=== PATIENT | male | born 1960 | race Caucasian/White ===

== ENCOUNTER 2019-01-23 10:14 | Emergency (ER) | payer MEDICARE, MEDICAID ==
[~2019-01-23] VITALS: Ht 182.9 cm; Wt 111.6 kg
[2019-01-23 10:46] LABS: Urine WBC None Seen /hpf (0 - 3)
[2019-01-23 10:55] LABS: Basophils # (auto) 0 uL; Basophils % (auto) 0.5 % (0.0-2.0); Eosinophils # (auto) 0.1 uL; Hematocrit 44.8 % (41.0-53.0); Hemoglobin 15.2 g/dL (13.5-17.5); Lymphocytes # (auto) 1.1 uL; Lymphocytes % (auto) 16.9 % (10.0-50.0); Mean Corpuscular Hemoglobin 31.1 pg (28.0-32.0); Mean Corpuscular Hgb Conc. 33.9 g/dL (32.0-36.0); Mean Corpuscular Volume 91.7 fL (80.0-100.0); Monocytes # (auto) 0.5 uL; Monocytes % (auto) 7.6 % (0.0-12.0); Neutrophils # (auto) 4.9 uL; Platelet Count (auto) 218 10^3/uL (140-450); Red Blood Cells 4.89 10^6/uL (4.5-5.90); Red Cell Distribution Width 14.1 % (11.8-14.3); White Blood Cell 6.7 10^3/uL (4.4-10.8)
[2019-01-23 10:58] LABS: Urine Amorphous Crystal FEW /hpf (None Seen); Urine Bacteria NONE SEEN /hpf (None Seen); Urine Blood Negative /uL (Negative); Urine Specific Gravity 1.016 (1.001-1.035)
[2019-01-23 11:12] LABS: Salicylate < 1.7 mg/dL (2.8-20.0)
[2019-01-23 11:13] LABS: Alcohol, Urine < 3.0 mg/dL (0-5); Amphetamine Screen, Urine NEGATIVE (NEGATIVE); Barbiturate Scree,Urine NEGATIVE (NEGATIVE); Benzodiazephine Screen, Urine NEGATIVE (NEGATIVE); Cannabinoid Screen, Urine POSITIVE (NEGATIVE); Cocaine Screen, Urine NEGATIVE (NEGATIVE); Opiate Scree,Urine NEGATIVE (NEGATIVE); Phencyclidine Screen, Urine NEGATIVE (NEGATIVE)
[2019-01-23 11:13] LABS: Albumin 3.8 g/dL (3.4-5.0); BUN/Creatinine Ratio 8.9; Calcium 8.8 mg/dL (8.5-10.1); Potassium 3.3 mmol/L (3.5-5.1)
[2019-01-23 11:16] LABS: Bilirubin, Total 0.7 mg/dL (0.2-1.0); Total Protein 6.8 g/dL (6.4-8.2)
[2019-01-23 11:26] LABS: Acetaminophen < 2.0 ug/mL (10-30)
[2019-01-23 13:00] VITALS: BP 162/78
== END 2019-01-23 13:11 | disposition home or self-care (01) ==
LOC: ER 10:14
DX: F32.9 Major depressive disorder, single episode, unspecified (principal); F41.9 Anxiety disorder, unspecified; I10 Essential (primary) hypertension; Z87.891 Personal history of nicotine dependence
CPT/HCPCS: 36415; 80053; 80307; 80329; 81001; 85025

== ENCOUNTER 2019-07-11 07:10 | Emergency (ER) | payer MEDICARE, MEDICAID ==
[~2019-07-11] VITALS: Ht 182.9 cm; Wt 108.9 kg
[2019-07-11 07:54] VITALS: BP 157/86
== END 2019-07-11 08:17 | disposition home or self-care (01) ==
LOC: ER 07:10
DX: H66.42 Suppurative otitis media, unspecified, left ear (principal); I10 Essential (primary) hypertension; Z87.891 Personal history of nicotine dependence

== ENCOUNTER 2019-09-29 11:05 | Inpatient (IN) | payer MEDICARE, MEDICAID ==
[~2019-09-29] VITALS: Ht 182.9 cm; Wt 116.8 kg
[2019-09-29] MEDS ORDERED: SODIUM CHLORIDE 0.9% 500 ML IVB ONE (11:11)
[2019-09-29 11:39] LABS: Basophils # (auto) 0 10 ^3/uL (0-0.2); Basophils % (auto) 0.5 % (0.0-2.0); Eosinophils # (auto) 0.1 10 ^3/uL (0-0.8); Hematocrit 44.3 % (41.0-53.0); Hemoglobin 14.8 g/dL (13.5-17.5); Lymphocytes # (auto) 0.7 10 ^3/uL (0.4-5.4); Lymphocytes % (auto) 7.5 % (10.0-50.0); Mean Corpuscular Hemoglobin 31.3 pg (28.0-32.0); Mean Corpuscular Hgb Conc. 33.3 g/dL (32.0-36.0); Mean Corpuscular Volume 93.9 fL (80.0-100.0); Monocytes # (auto) 0.6 10 ^3/uL (0-1.3); Monocytes % (auto) 6.6 % (0.0-12.0); Neutrophils # (auto) 7.4 10 ^3/uL (1.6-8.6); Neutrophils % (auto) 84.4 % (37.0-80.0); Platelet Count (auto) 173 10^3/uL (140-450); Red Blood Cells 4.72 10^6/uL (4.5-5.90); Red Cell Distribution Width 14.7 % (11.8-14.3); White Blood Cell 8.7 10^3/uL (4.4-10.8)
[2019-09-29 11:46] LABS: INR 1.01 (0.9-1.15); Partial Thromboplastin Time 26.6 sec (23.64-32.05)
[2019-09-29 11:49] LABS: Albumin 3.8 g/dL (3.4-5.0); Calcium 8.4 mg/dL (8.5-10.1); Potassium 3.7 mmol/L (3.5-5.1)
[2019-09-29 11:52] LABS: BUN/Creatinine Ratio 25.3; Bilirubin, Total 0.4 mg/dL (0.2-1.0); Total Protein 6.9 g/dL (6.4-8.2)
[2019-09-29] MEDS ORDERED: NITROGLYCERIN 0.4 MG SL TAB SL PRN (12:30)
[2019-09-29] MEDS ORDERED: cefTRIAXone 1GM/50ML D5W 50 ML IV ONE (12:30)
[2019-09-29] MEDS ORDERED: MORPHINE SULF INJ 2 MG/ML SYRINGE 1ML IV PRN ×2 (12:30→22:00)
[2019-09-29] MEDS ORDERED: metroNIDAZOLE 500MG/100ML 100 ML IV ONE (12:30)
[2019-09-29] MEDS ORDERED: LABETALOL HCL 5 MG/ML 4ML SYRINGE IV PRN (12:30)
[2019-09-29] MEDS: metroNIDAZOLE 500MG/100ML 100 ML IV SCH ×2 (12:53→22:25)
[2019-09-29] MEDS: SODIUM CHLORIDE 0.9% 1,000 ML IV SCH ×2 (12:57→23:14)
[2019-09-29] MEDS ORDERED: LACTULOSE 20Gm/30ML SOLN PO PRN (13:30)
[2019-09-29 16:24] VITALS: BP 159/85
[2019-09-29 18:17] LABS: Hematocrit 42.7 % (41.0-53.0); Hemoglobin 14.2 g/dL (13.5-17.5)
[2019-09-29 18:42] VITALS: BP 159/85
[2019-09-29] MEDS ORDERED: HYDROcodone-ACET 5/325MG TAB PO PRN (22:00)
[2019-09-29] MEDS ORDERED: ACETAMINOPHEN 325 MG TAB PO PRN (22:00)
[2019-09-29] MEDS: ATORVASTATIN 20 MG TAB PO SCH (22:25)
[2019-09-29] MEDS: PANTOPRAZOLE 40 MG TAB PO SCH (22:25)
[2019-09-29] MEDS: METOPROLOL TARTRATE 25 MG TAB PO SCH (22:26)
[2019-09-29 22:34] VITALS: BP 145/73
[2019-09-29 23:43] LABS: Alcohol, Urine < 3.0 mg/dL (0-5); Amphetamine Screen, Urine NEGATIVE (NEGATIVE); Barbiturate Scree,Urine NEGATIVE (NEGATIVE); Benzodiazephine Screen, Urine NEGATIVE (NEGATIVE); Cocaine Screen, Urine NEGATIVE (NEGATIVE); Opiate Scree,Urine NEGATIVE (NEGATIVE); Phencyclidine Screen, Urine NEGATIVE (NEGATIVE)
[2019-09-30 00:07] LABS: Cannabinoid Screen, Urine POSITIVE (NEGATIVE)
[2019-09-30 02:27] LABS: Hematocrit 41.3 % (41.0-53.0); Hemoglobin 13.8 g/dL (13.5-17.5)
[2019-09-30 05:14] VITALS: BP 137/64
[2019-09-30] MEDS: metroNIDAZOLE 500MG/100ML 100 ML IV SCH ×3 (05:48→21:54)
[2019-09-30 07:30] LABS: Basophils # (auto) 0 10 ^3/uL (0-0.2); Basophils % (auto) 0.4 % (0.0-2.0); Eosinophils # (auto) 0.1 10 ^3/uL (0-0.8); Hematocrit 40.9 % (41.0-53.0); Hemoglobin 13.8 g/dL (13.5-17.5); Lymphocytes % (auto) 14.7 % (10.0-50.0); Mean Corpuscular Hemoglobin 31.7 pg (28.0-32.0); Mean Corpuscular Hgb Conc. 33.7 g/dL (32.0-36.0); Mean Corpuscular Volume 94.3 fL (80.0-100.0); Monocytes # (auto) 0.7 10 ^3/uL (0-1.3); Monocytes % (auto) 10.3 % (0.0-12.0); Neutrophils # (auto) 5.1 10 ^3/uL (1.6-8.6); Neutrophils % (auto) 72.6 % (37.0-80.0); Platelet Count (auto) 156 10^3/uL (140-450); Red Blood Cells 4.34 10^6/uL (4.5-5.90); Red Cell Distribution Width 14.6 % (11.8-14.3); White Blood Cell 7.1 10^3/uL (4.4-10.8)
[2019-09-30 09:00] VITALS: BP 150/85
[2019-09-30] MEDS: cefTRIAXone 1GM/50ML D5W 50 ML IV SCH (09:32)
[2019-09-30] MEDS: PANTOPRAZOLE 40 MG TAB PO SCH ×2 (09:32→21:54)
[2019-09-30] MEDS: METOPROLOL TARTRATE 25 MG TAB PO SCH (09:34)
[2019-09-30] MEDS: SODIUM CHLORIDE 0.9% 1,000 ML IV SCH (11:35)
[2019-09-30] MEDS ORDERED: amLODIPine BESYLATE 5 MG TAB PO ONE (12:45)
[2019-09-30 13:00] VITALS: BP 132/76
[2019-09-30] MEDS ORDERED: hydrALAZINE HCL 20 MG/ML VL IV PRN (13:15)
[2019-09-30] MEDS ORDERED: LORazepam 2MG/ML-1ML VIAL IV PRN (14:30)
[2019-09-30 16:45] VITALS: BP 149/71
[2019-09-30] MEDS ORDERED: LOSARTAN POTASSIUM 25 MG TAB PO ONE (17:15)
[2019-09-30 21:37] VITALS: BP 153/80
[2019-09-30] MEDS: ATORVASTATIN 20 MG TAB PO SCH (21:54)
[2019-09-30] MEDS: TIMOLOL MALEATE 0.25 % OPTH SOL 5ML EACHEYE SCH (22:00)
[2019-10-01 05:25] LABS: Basophils # (auto) 0 10 ^3/uL (0-0.2); Basophils % (auto) 0.4 % (0.0-2.0); Eosinophils # (auto) 0.1 10 ^3/uL (0-0.8); Eosinophils % (auto) 2.2 % (0.0-7.0); Hematocrit 43.3 % (41.0-53.0); Hemoglobin 14.6 g/dL (13.5-17.5); Lymphocytes % (auto) 17.4 % (10.0-50.0); Mean Corpuscular Hemoglobin 31.6 pg (28.0-32.0); Mean Corpuscular Hgb Conc. 33.7 g/dL (32.0-36.0); Mean Corpuscular Volume 93.9 fL (80.0-100.0); Monocytes # (auto) 0.6 10 ^3/uL (0-1.3); Neutrophils # (auto) 4.1 10 ^3/uL (1.6-8.6); Nucleated Red Blood Cells % 0.1 %; Platelet Count (auto) 163 10^3/uL (140-450); Red Blood Cells 4.61 10^6/uL (4.5-5.90); Red Cell Distribution Width 14.2 % (11.8-14.3); White Blood Cell 5.8 10^3/uL (4.4-10.8)
[2019-10-01 05:27] VITALS: BP 157/77
[2019-10-01 05:43] LABS: Calcium 8.3 mg/dL (8.5-10.1); Potassium 3.4 mmol/L (3.5-5.1)
[2019-10-01 05:45] LABS: BUN/Creatinine Ratio 10.3
[2019-10-01] MEDS: metroNIDAZOLE 500MG/100ML 100 ML IV SCH ×3 (06:25→21:43)
[2019-10-01 08:00] VITALS: BP 149/70
[2019-10-01] MEDS: TIMOLOL MALEATE 0.25 % OPTH SOL 5ML EACHEYE SCH (10:00)
[2019-10-01] MEDS: cefTRIAXone 1GM/50ML D5W 50 ML IV SCH (10:45)
[2019-10-01] MEDS: LOSARTAN POTASSIUM 25 MG TAB PO SCH (10:46)
[2019-10-01] MEDS: PANTOPRAZOLE 40 MG TAB PO SCH ×2 (10:47→21:44)
[2019-10-01] MEDS: amLODIPine BESYLATE 5 MG TAB PO SCH ×2 (10:47→21:43)
[2019-10-01] MEDS ORDERED: GOLYTELY 4L KIT PO ONE (12:00)
[2019-10-01 13:00] VITALS: BP 144/71
[2019-10-01] MEDS ORDERED: HCTZ 25 MG TAB PO ONE (15:15)
[2019-10-01] MEDS ORDERED: POTASSIUM CHL 20 Meq TABLET PO ONE (15:15)
[2019-10-01] MEDS ORDERED: LORazepam 0.5 MG TAB PO PRN (16:15)
[2019-10-01] MEDS: TIMOLOL MAL 0.5% OPTH(EYE) SOL 5ML EACHEYE SCH ×2 (16:15→21:43)
[2019-10-01 17:00] VITALS: BP 143/67
[2019-10-01] MEDS: ATORVASTATIN 20 MG TAB PO SCH (21:43)
[2019-10-01 22:00] VITALS: BP 145/87
[2019-10-02] MEDS: metroNIDAZOLE 500MG/100ML 100 ML IV SCH ×2 (05:42→14:39)
[2019-10-02 05:43] VITALS: BP 148/76
[2019-10-02 06:47] LABS: Basophils % (auto) 0.8 % (0.0-2.0); Eosinophils % (auto) 2.8 % (0.0-7.0); Lymphocytes % (auto) 19.9 % (10.0-50.0); Monocytes % (auto) 12.4 % (0.0-12.0); Neutrophils % (auto) 64.1 % (37.0-80.0); White Blood Cell 5.2 10^3/uL (4.4-10.8)
[2019-10-02 06:48] LABS: Basophils # (auto) 0 10 ^3/uL (0-0.2); Eosinophils # (auto) 0.1 10 ^3/uL (0-0.8); Hematocrit 44.5 % (41.0-53.0); Hemoglobin 15.1 g/dL (13.5-17.5); Mean Corpuscular Hemoglobin 31.7 pg (28.0-32.0); Mean Corpuscular Hgb Conc. 33.9 g/dL (32.0-36.0); Mean Corpuscular Volume 93.6 fL (80.0-100.0); Monocytes # (auto) 0.6 10 ^3/uL (0-1.3); Neutrophils # (auto) 3.4 10 ^3/uL (1.6-8.6); Platelet Count (auto) 181 10^3/uL (140-450); Red Blood Cells 4.75 10^6/uL (4.5-5.90); Red Cell Distribution Width 14.8 % (11.8-14.3)
[2019-10-02 06:57] LABS: INR 1.16 (0.9-1.15); Partial Thromboplastin Time 29.4 sec (23.64-32.05)
[2019-10-02 07:04] LABS: BUN/Creatinine Ratio 11.1; Calcium 8.3 mg/dL (8.5-10.1); Potassium 3.3 mmol/L (3.5-5.1)
[2019-10-02] MEDS: cefTRIAXone 1GM/50ML D5W 50 ML IV SCH (08:39)
[2019-10-02] MEDS: LOSARTAN POTASSIUM 25 MG TAB PO SCH (08:44)
[2019-10-02] MEDS: amLODIPine BESYLATE 5 MG TAB PO SCH (08:44)
[2019-10-02] MEDS: PANTOPRAZOLE 40 MG TAB PO SCH (08:44)
[2019-10-02 09:00] VITALS: BP 153/84
[2019-10-02] MEDS ORDERED: HCTZ 25 MG TAB PO SCH (10:00)
[2019-10-02] MEDS: TIMOLOL MAL 0.5% OPTH(EYE) SOL 5ML EACHEYE SCH (11:02)
[2019-10-02 13:00] VITALS: BP 146/77
[2019-10-02] MEDS ORDERED: MIDAZOLAM HCL 1MG/1ML-2 ML VIAL ONE ×3 (13:03→13:11)
[2019-10-02] MEDS ORDERED: LIDOCAINE 2% (LOCAL ANESTH.) PF 5ml SDV ONE (13:06)
[2019-10-02] MEDS ORDERED: PROPOFOL 10 MG/ML 20 ML IV ONE (13:06)
[2019-10-02] MEDS ORDERED: fentaNYL CITRATE 100 MCG/2 ML VL ONE (13:09)
[2019-10-02] MEDS ORDERED: diphenhdrAMINE HCL 50 MG/1 ML VL ONE (13:09)
[2019-10-02] MEDS ORDERED: ATOR20TA50 PO (13:30)
[2019-10-02] MEDS ORDERED: PANT40T PO (13:30)
[2019-10-02] MEDS ORDERED: LOS25T PO (13:30)
[2019-10-02] MEDS ORDERED: ONDANSETRON HCL 4 MG/2 ML VIAL IV PRN (13:30)
[2019-10-02] MEDS ORDERED: HYDROmorphone HCL 2 MG/ML VL IV PRN (13:30)
[2019-10-02] MEDS ORDERED: HCTZ25T PO (13:30)
[2019-10-02] MEDS ORDERED: NALOXONE HCL 0.4 MG/ML VIAL IV PRN (13:30)
[2019-10-02] MEDS ORDERED: AML5T PO (13:30)
[2019-10-02] MEDS ORDERED: POTA10TA51 PO (13:31)
[2019-10-02] MEDS ORDERED: HYDR25SU21 PR (13:33)
[2019-10-02] MEDS ORDERED: METR500T PO (13:36)
[2019-10-02] MEDS ORDERED: DOXY-286 PO (13:37)
[2019-10-02 17:00] VITALS: BP 110/45
[2019-10-02] MEDS ORDERED: HYDROCORTISONE ACET 25 MG RECTAL SUPP PR SCH (18:00)
== END 2019-10-02 18:35 | disposition home or self-care (01) | DRG 394 ==
LOC: ER 11:05 → EDBD 11:05 → TELE 11:06 → TELE-CENTR 14:02
PROVIDERS: ADMIT Internal Medicine; ATTEND Internal Medicine Nephrology
PROC: 0DBN8ZX Excision of Sigmoid Colon, Via Natural or Artificial Opening Endoscopic, Diagnostic (ICD-10-PCS; principal; 2019-10-02 13:01)
DX: K64.8 Other hemorrhoids (principal); I50.32 Chronic diastolic (congestive) heart failure; Q85.8 Other phakomatoses, not elsewhere classified; K62.89 Other specified diseases of anus and rectum; R00.1 Bradycardia, unspecified; K63.5 Polyp of colon; H81.10 Benign paroxysmal vertigo, unspecified ear; K21.9 Gastro-esophageal reflux disease without esophagitis; I11.0 Hypertensive heart disease with heart failure; E78.5 Hyperlipidemia, unspecified; E66.9 Obesity, unspecified; H40.9 Unspecified glaucoma; H54.62 Unqualified visual loss, left eye, normal vision right eye; G40.909 Epilepsy, unspecified, not intractable, without status epilepticus; M10.9 Gout, unspecified; F32.9 Major depressive disorder, single episode, unspecified; F41.9 Anxiety disorder, unspecified; N40.0 Benign prostatic hyperplasia without lower urinary tract symptoms; G44.89 Other headache syndrome
CPT/HCPCS: 36415; 45384; 70551; 71045; 74176; 80048; 80053; 80307; 82270; 82550; 83690; 83880; 84439; 84443; 84484; 85014; 85018; 85025; 85045; 85610; 85652; 85730; 86141; 87493; 93005; 93306; 96361; 96365; 96368; G0378; J0696; J2001; J2250; J2704; J3490

== ENCOUNTER 2019-11-23 08:09 | Emergency (ER) | payer OTHER, MEDICARE, MEDICAID ==
[~2019-11-23] VITALS: Ht 180.3 cm; Wt 115.7 kg
[~2019-11-23 08:09] MED LIST: AML5T PO; ATOR20TA50 PO; DOXY-286 PO; HCTZ25T PO; HYDR25SU21 PR; LOS25T PO; METR500T PO; PANT40T PO
[2019-11-23 08:18] VITALS: BP 166/82
[2019-11-23] MEDS ORDERED: KETOROLAC TROMETH 60MG/2ML VIAL IM ONE (09:00)
== END 2019-11-23 09:32 | disposition home or self-care (01) ==
LOC: ER 08:09
DX: S46.912A Strain of unspecified muscle, fascia and tendon at shoulder and upper arm level, left arm, initial encounter (principal); M50.122 Cervical disc disorder at C5-C6 level with radiculopathy; E78.5 Hyperlipidemia, unspecified; I10 Essential (primary) hypertension; Z87.891 Personal history of nicotine dependence; V49.9XXA Car occupant (driver) (passenger) injured in unspecified traffic accident, initial encounter; Y93.89 Activity, other specified; Y92.89 Other specified places as the place of occurrence of the external cause; Y99.8 Other external cause status
CPT/HCPCS: 72040; 73030; 96372; 99284; J1885

== ENCOUNTER 2020-01-23 09:10 | Inpatient (IN) | payer MEDICARE, MEDICAID ==
[~2020-01-23] VITALS: Ht 180.3 cm; Wt 121.6 kg
[2020-01-23 09:39] LABS: Basophils # (auto) 0 10 ^3/uL (0-0.2); Basophils % (auto) 0.8 % (0.0-2.0); Eosinophils # (auto) 0.1 10 ^3/uL (0-0.8); Eosinophils % (auto) 1.9 % (0.0-7.0); Hematocrit 45.7 % (41.0-53.0); Lymphocytes # (auto) 1.2 10 ^3/uL (0.4-5.4); Lymphocytes % (auto) 21.2 % (10.0-50.0); Mean Corpuscular Hemoglobin 32.2 pg (28.0-32.0); Mean Corpuscular Hgb Conc. 35.1 g/dL (32.0-36.0); Mean Corpuscular Volume 91.7 fL (80.0-100.0); Monocytes # (auto) 0.5 10 ^3/uL (0-1.3); Monocytes % (auto) 9.2 % (0.0-12.0); Neutrophils # (auto) 3.8 10 ^3/uL (1.6-8.6); Neutrophils % (auto) 66.9 % (37.0-80.0); Nucleated Red Blood Cells % 0.1 %; Platelet Count (auto) 195 10^3/uL (140-450); Red Blood Cells 4.98 10^6/uL (4.5-5.90); Red Cell Distribution Width 14.1 % (11.8-14.3); White Blood Cell 5.7 10^3/uL (4.4-10.8)
[2020-01-23 09:58] LABS: Albumin 4.1 g/dL (3.4-5.0); Blood Urea Nitrogen 14 mg/dL (7-18); Calcium 8.3 mg/dL (8.5-10.1); Chloride 110 mmol/L (98-107); Glucose 111 mg/dL (74-106); Magnesium 2.6 mg/dL (1.6-2.6); Potassium 3.4 mmol/L (3.5-5.1); Sodium 141 mmol/L (136-145)
[2020-01-23 10:08] LABS: Alanine Aminotransferase 27 U/L (16-61); Alkaline Phosphatase 70 U/L (45-117); Anion Gap 6 (5-15); Aspartate Aminotransferase 17 U/L (15-37); BUN/Creatinine Ratio 14.7; Bilirubin, Total 0.8 mg/dL (0.2-1.0); Carbon Dioxide 25 mmol/L (21-32); GFR African American 104 mL/min; GFR Non-African American 86 mL/min
[2020-01-23] MEDS ORDERED: NITROGLYCERIN 0.4MG/HR TOPICAL PATCH TD ONE (10:15)
[2020-01-23 10:39] LABS: INR 1.03 (0.9-1.15)
[2020-01-23 11:24] LABS: Urine Bacteria NONE SEEN /hpf (None Seen); Urine Blood Negative /uL (Negative); Urine Mucus FEW (None Seen); Urine WBC 2 /hpf (0 - 3)
[2020-01-23] MEDS ORDERED: POTASSIUM CHL 20 Meq TABLET PO ONE (15:00)
[2020-01-23] MEDS ORDERED: LACTATED RINGER'S 1,000 ML IV ONE (15:00)
[2020-01-23] MEDS ORDERED: MORPHINE SULF INJ 2 MG/ML SYRINGE 1ML IV PRN ×2 (15:00→15:15)
[2020-01-23] MEDS ORDERED: NITROGLYCERIN 0.4 MG SL TAB SL PRN ×3 (15:00→15:15)
[2020-01-23] MEDS ORDERED: GABAPENTIN 300 MG CAP PO ONE (15:15)
[2020-01-23] MEDS ORDERED: MORPHINE SULFATE 4 MG/ML SYR/VIAL IV PRN (15:15)
[2020-01-23] MEDS ORDERED: LORazepam 0.5 MG TAB PO PRN (15:15)
[2020-01-23] MEDS ORDERED: ONDANSETRON HCL 4 MG/2 ML VIAL IV PRN (15:15)
[2020-01-23] MEDS ORDERED: CALCIUM W/VIT D (600MG/400IU) TAB PO ONE (15:15)
[2020-01-23] MEDS ORDERED: LOSARTAN POTASSIUM 50 MG TAB PO ONE (15:15)
[2020-01-23] MEDS ORDERED: METOPROLOL SUCCINATE XL 50 MG TAB PO ONE (15:15)
[2020-01-23] MEDS ORDERED: ALUM & MAG HYDROX-SIMETH LIQ(MAALOX) 30 ML PO ONE (15:15)
[2020-01-23] MEDS ORDERED: ACETAMINOPHEN 325 MG TAB PO PRN (15:15)
[2020-01-23] MEDS ORDERED: CALCIUM CHL 100MG/ML 500 MG in D5W 5% 100 ML IV ONE (15:15)
[2020-01-23] MEDS ORDERED: METH750T3 PO (16:04)
[2020-01-23] MEDS ORDERED: METHOCARBAMOL 500 MG TAB PO ONE (16:15)
[2020-01-23] MEDS ORDERED: METHOCARBAMOL 500 MG TAB PO PRN (16:15)
[2020-01-23] MEDS ORDERED: LORA0.5T20 PO (16:29)
[2020-01-23 17:00] VITALS: BP 119/60
[2020-01-23 20:00] VITALS: BP 127/62
[2020-01-23] MEDS: ATORVASTATIN 20 MG TAB PO SCH (21:32)
[2020-01-23] MEDS: PANTOPRAZOLE 40 MG TAB PO SCH (21:32)
[2020-01-23 22:00] VITALS: BP 127/62
[2020-01-24] VITALS (8 sets, daily range): BP systolic 132–164; BP diastolic 70–78
[2020-01-24] MEDS: GABAPENTIN 100 MG CAP PO SCH ×3 (05:45→22:00)
[2020-01-24] MEDS: CALCIUM W/VIT D (600MG/400IU) TAB PO SCH ×2 (08:11→17:23)
[2020-01-24] MEDS: ASPirin 81 mg TAB PO SCH (09:24)
[2020-01-24] MEDS ORDERED: ADENOSINE 102 MG in GIVE UN-DILUTED 0 ML IV STA (09:24)
[2020-01-24] MEDS: DOCUSATE SOD 100 MG CAP PO SCH (09:26)
[2020-01-24] MEDS: LOSARTAN POTASSIUM 25 MG TAB PO SCH (09:26)
[2020-01-24] MEDS: amLODIPine BESYLATE 5 MG TAB PO SCH (09:27)
[2020-01-24] MEDS: PANTOPRAZOLE 40 MG TAB PO SCH ×2 (09:27→22:00)
[2020-01-24] MEDS: HCTZ 25 MG TAB PO SCH (09:32)
[2020-01-24] MEDS: ENOXAPARIN SOD 40 MG/0.4 ML SYRINGE SC SCH (09:33)
[2020-01-24] MEDS ORDERED: POTASSIUM CHL 20 Meq TABLET PO SCH (10:00)
[2020-01-24] MEDS ORDERED: LABETALOL HCL 5 MG/ML 4ML SYRINGE IV PRN (16:15)
[2020-01-24] MEDS: ATORVASTATIN 20 MG TAB PO SCH (22:00)
[2020-01-25 05:00] VITALS: BP 150/75
[2020-01-25] MEDS: GABAPENTIN 100 MG CAP PO SCH ×3 (05:43→22:11)
[2020-01-25 06:49] LABS: Basophils # (auto) 0 10 ^3/uL (0-0.2); Basophils % (auto) 0.6 % (0.0-2.0); Eosinophils # (auto) 0.2 10 ^3/uL (0-0.8); Eosinophils % (auto) 3.3 % (0.0-7.0); Hematocrit 46.5 % (41.0-53.0); Hemoglobin 15.9 g/dL (13.5-17.5); Lymphocytes # (auto) 1.3 10 ^3/uL (0.4-5.4); Lymphocytes % (auto) 19.2 % (10.0-50.0); Mean Corpuscular Hemoglobin 31.6 pg (28.0-32.0); Mean Corpuscular Hgb Conc. 34.2 g/dL (32.0-36.0); Mean Corpuscular Volume 92.2 fL (80.0-100.0); Monocytes # (auto) 0.7 10 ^3/uL (0-1.3); Monocytes % (auto) 10.7 % (0.0-12.0); Neutrophils # (auto) 4.4 10 ^3/uL (1.6-8.6); Neutrophils % (auto) 66.2 % (37.0-80.0); Nucleated Red Blood Cells % 0.1 %; Platelet Count (auto) 191 10^3/uL (140-450); Red Blood Cells 5.04 10^6/uL (4.5-5.90); White Blood Cell 6.7 10^3/uL (4.4-10.8)
[2020-01-25 07:08] LABS: INR 0.98 (0.9-1.15); Partial Thromboplastin Time 26.1 sec (23.0-31.2)
[2020-01-25 07:10] LABS: BUN/Creatinine Ratio 16.9; Calcium 9.1 mg/dL (8.5-10.1); Potassium 3.9 mmol/L (3.5-5.1)
[2020-01-25] MEDS: CALCIUM W/VIT D (600MG/400IU) TAB PO SCH ×2 (08:00→17:40)
[2020-01-25 09:00] VITALS: BP 162/83
[2020-01-25] MEDS: ENOXAPARIN SOD 40 MG/0.4 ML SYRINGE SC SCH (10:00)
[2020-01-25] MEDS: PANTOPRAZOLE 40 MG TAB PO SCH ×2 (10:00→22:11)
[2020-01-25] MEDS: HCTZ 25 MG TAB PO SCH (10:00)
[2020-01-25] MEDS: amLODIPine BESYLATE 5 MG TAB PO SCH (10:00)
[2020-01-25] MEDS: DOCUSATE SOD 100 MG CAP PO SCH (10:00)
[2020-01-25] MEDS: ASPirin 81 mg TAB PO SCH (10:00)
[2020-01-25] MEDS: LOSARTAN POTASSIUM 25 MG TAB PO SCH (10:00)
[2020-01-25 13:00] VITALS: BP 138/78
[2020-01-25] MEDS ORDERED: LIDOCAINE 2%HCL (LOCAL ANESTH.) INJ 20ML MDV ONE (14:14)
[2020-01-25] MEDS ORDERED: MIDAZOLAM HCL 1MG/1ML-2 ML VIAL ONE (14:45)
[2020-01-25] MEDS ORDERED: ANGIOMAX 250 MG VIAL IV ONE (14:45)
[2020-01-25] MEDS ORDERED: fentaNYL CITRATE 100 MCG/2 ML VL ONE (14:45)
[2020-01-25] MEDS ORDERED: SODIUM CHL 0.9% 0 ML ONE (14:46)
[2020-01-25] MEDS ORDERED: VERAPAMIL 2.5MG/ML INJ 2ML VIAL IV ONE (14:54)
[2020-01-25] MEDS ORDERED: HEPARIN SODIUM (PORCINE) 5000 UNITS/ML 1ML VIAL ONE (14:54)
[2020-01-25] MEDS ORDERED: IOHEXOL 350 MG/ML 100ML IJ ONE (15:05)
[2020-01-25 17:14] VITALS: BP 135/75
[2020-01-25 21:48] VITALS: BP 153/78
[2020-01-25] MEDS: ATORVASTATIN 20 MG TAB PO SCH (22:11)
[2020-01-26 05:00] VITALS: BP 138/72
[2020-01-26] MEDS: GABAPENTIN 100 MG CAP PO SCH (06:00)
[2020-01-26] MEDS: CALCIUM W/VIT D (600MG/400IU) TAB PO SCH (08:00)
[2020-01-26 09:00] VITALS: BP 148/72
[2020-01-26] MEDS: PANTOPRAZOLE 40 MG TAB PO SCH (09:36)
[2020-01-26] MEDS: ASPirin 81 mg TAB PO SCH (09:36)
[2020-01-26] MEDS: HCTZ 25 MG TAB PO SCH (09:36)
[2020-01-26] MEDS: LOSARTAN POTASSIUM 25 MG TAB PO SCH (09:37)
[2020-01-26] MEDS: DOCUSATE SOD 100 MG CAP PO SCH (09:38)
[2020-01-26] MEDS: amLODIPine BESYLATE 5 MG TAB PO SCH (09:38)
[2020-01-26] MEDS: ENOXAPARIN SOD 40 MG/0.4 ML SYRINGE SC SCH (09:41)
[2020-01-26] MEDS ORDERED: ASPI81CH43 PO (11:21)
[2020-01-26 13:07] VITALS: BP 148/72
== END 2020-01-26 14:00 | disposition home or self-care (01) | DRG 287 ==
LOC: ER 09:10 → EDBD 09:10 → TELE 09:11 → TELE-WESTW 15:59
PROVIDERS: ADMIT Hospitalist; ATTEND Internal Medicine Pulmonary Disease
PROC: 4A023N7 Measurement of Cardiac Sampling and Pressure, Left Heart, Percutaneous Approach (ICD-10-PCS; principal; 2020-01-25)
PROC: B2111ZZ Fluoroscopy of Multiple Coronary Arteries using Low Osmolar Contrast (ICD-10-PCS; 2020-01-25)
PROC: B2151ZZ Fluoroscopy of Left Heart using Low Osmolar Contrast (ICD-10-PCS; 2020-01-25)
PROC: 4A033BC Measurement of Arterial Pressure, Coronary, Percutaneous Approach (ICD-10-PCS; 2020-01-25)
DX: I25.119 Atherosclerotic heart disease of native coronary artery with unspecified angina pectoris (principal); Q85.8 Other phakomatoses, not elsewhere classified; I16.0 Hypertensive urgency; E66.01 Morbid (severe) obesity due to excess calories; E78.5 Hyperlipidemia, unspecified; I10 Essential (primary) hypertension; K62.89 Other specified diseases of anus and rectum; R00.1 Bradycardia, unspecified; E11.51 Type 2 diabetes mellitus with diabetic peripheral angiopathy without gangrene; H54.62 Unqualified visual loss, left eye, normal vision right eye; I45.10 Unspecified right bundle-branch block; G40.909 Epilepsy, unspecified, not intractable, without status epilepticus; E87.6 Hypokalemia; F41.9 Anxiety disorder, unspecified; Z68.37 Body mass index [BMI] 37.0-37.9, adult; Z87.891 Personal history of nicotine dependence; Z95.828 Presence of other vascular implants and grafts; Z79.899 Other long term (current) drug therapy; Z83.3 Family history of diabetes mellitus; Z80.0 Family history of malignant neoplasm of digestive organs; Z82.49 Family history of ischemic heart disease and other diseases of the circulatory system
CPT/HCPCS: 36415; 71045; 74018; 78452; 80048; 80053; 81001; 82550; 83036; 83735; 83880; 84146; 84484; 85025; 85610; 85730; 93005; 93017; 93926; 99152; 99153; G0378; J0153; J2250; J7060

== ENCOUNTER → 2020-03-20 | Outpatient (CLI) | payer MEDICARE, MEDICAID ==
[~2020-03-20] MED LIST changes: +ASPI81CH43 PO; +LORA0.5T20 PO; +METH750T3 PO
[2020-03-20 08:11] LABS: Cholesterol 147 mg/dL (< 200); HDL Cholesterol 31 mg/dL (40-59); LDL Cholesterol 66 mg/dL (< 100); Triglycerides 324 mg/dL (< 150)
== END | disposition home or self-care (01) ==
LOC: LAB 07:03
PROVIDERS: ATTEND Internal Medicine
DX: I10 Essential (primary) hypertension (principal); Q85.00 Neurofibromatosis, unspecified; E11.9 Type 2 diabetes mellitus without complications; Z12.11 Encounter for screening for malignant neoplasm of colon; N40.0 Benign prostatic hyperplasia without lower urinary tract symptoms
CPT/HCPCS: 36415; 80061; 82043; 84153

== ENCOUNTER → 2020-04-18 | Outpatient (CLI) | payer MEDICARE, MEDICAID | END | disposition home or self-care (01) | LOC: LAB 07:27 | PROVIDERS: ATTEND Internal Medicine | DX: I10 Essential (primary) hypertension (principal); E78.5 Hyperlipidemia, unspecified; E11.9 Type 2 diabetes mellitus without complications | CPT/HCPCS: 36415; 83036 ==

== ENCOUNTER → 2020-04-24 | Outpatient (CLI) | payer MEDICARE, MEDICAID | END | disposition home or self-care (01) | LOC: XY 14:07 | PROVIDERS: ATTEND Internal Medicine | DX: I65.21 Occlusion and stenosis of right carotid artery (principal) | CPT/HCPCS: 93886 ==

== ENCOUNTER → 2020-09-06 | Outpatient (CLI) | payer MEDICARE, MEDICAID ==
[~2020-09-06] MED LIST changes: -HCTZ25T PO; +HYDR25TA5 PO
== END | disposition home or self-care (01) ==
LOC: LAB 07:05
PROVIDERS: ATTEND Internal Medicine
DX: Z12.11 Encounter for screening for malignant neoplasm of colon (principal); E11.9 Type 2 diabetes mellitus without complications; M10.9 Gout, unspecified
CPT/HCPCS: 36415; 83036; 84550

== ENCOUNTER 2020-09-27 20:41 | Inpatient (IN) | payer MEDICARE, MEDICAID ==
[~2020-09-27] VITALS: Ht 182.9 cm; Wt 116.9 kg
[~2020-09-27 20:41] MED LIST changes: +METH750T22 PO; -METH750T3 PO
[2020-09-27 22:33] LABS: Basophils # (auto) 0 10 ^3/uL (0-0.2); Basophils % (auto) 0.2 % (0.0-2.0); Eosinophils # (auto) 0 10 ^3/uL (0-0.8); Hematocrit 40.9 % (41.0-53.0); Hemoglobin 14.2 g/dL (13.5-17.5); Lymphocytes # (auto) 0.6 10 ^3/uL (0.4-5.4); Lymphocytes % (auto) 5.1 % (10.0-50.0); Mean Corpuscular Hemoglobin 31.9 pg (28.0-32.0); Mean Corpuscular Hgb Conc. 34.8 g/dL (32.0-36.0); Mean Corpuscular Volume 91.5 fL (80.0-100.0); Monocytes # (auto) 0.9 10 ^3/uL (0-1.3); Monocytes % (auto) 8.1 % (0.0-12.0); Neutrophils % (auto) 86.6 % (37.0-80.0); Platelet Count (auto) 156 10^3/uL (140-450); Red Blood Cells 4.47 10^6/uL (4.5-5.90); Red Cell Distribution Width 14.3 % (11.8-14.3); White Blood Cell 11.5 10^3/uL (4.4-10.8)
[2020-09-27 22:45] LABS: Albumin 3.8 g/dL (3.4-5.0); Blood Urea Nitrogen 11 mg/dL (7-18); Calcium 8.7 mg/dL (8.5-10.1); Chloride 104 mmol/L (98-107); Glucose 131 mg/dL (74-106); Potassium 3.4 mmol/L (3.5-5.1); Sodium 134 mmol/L (136-145)
[2020-09-27 22:49] LABS: INR 1.12 (0.9-1.15); Partial Thromboplastin Time 34.5 sec (23.0-31.2)
[2020-09-27 22:53] LABS: Alanine Aminotransferase 21 U/L (16-61); Alkaline Phosphatase 61 U/L (45-117); Amylase 30 U/L (25-115); Anion Gap 7 (5-15); Aspartate Aminotransferase 19 U/L (15-37); BUN/Creatinine Ratio 12.1; Bilirubin, Total 1.1 mg/dL (0.2-1.0); Carbon Dioxide 23 mmol/L (21-32); GFR African American 109 mL/min; GFR Non-African American 90 mL/min; Lipase 94 U/L (73-393); Total Protein 7.6 g/dL (6.4-8.2)
[2020-09-28] MEDS ORDERED: IOHEXOL 350 MG/ML 100ML IJ ONE (05:49)
[2020-09-28] MEDS ORDERED: cefTRIAXone 1GM/50ML D5W 50 ML IV ONE (08:00)
[2020-09-28] MEDS ORDERED: NITROGLYCERIN 0.4 MG SL TAB SL PRN (08:15)
[2020-09-28] MEDS ORDERED: MORPHINE SULF INJ 2 MG/ML SYRINGE 1ML IV PRN ×2 (08:15→09:30)
[2020-09-28] MEDS ORDERED: levoFLOXacin 500MG 100 ML IV ONE (08:30)
[2020-09-28] MEDS ORDERED: CLINDAMYCIN 600MG IV 50 ML IV ONE (08:30)
[2020-09-28 09:23] LABS: Urine Bacteria NONE SEEN /hpf (None Seen); Urine Blood 2+ /uL (Negative); Urine Budding Yeast OCCASIONAL /hpf (None Seen); Urine Mucus FEW (None Seen); Urine Specific Gravity 1.029 (1.001-1.035); Urine WBC 3 /hpf (0 - 3)
[2020-09-28] MEDS ORDERED: PROMETHAZINE HCL 25 MG/ML 1ML IV PRN (09:30)
[2020-09-28] MEDS ORDERED: ACETAMINOPHEN 500 MG TAB PO PRN (09:30)
[2020-09-28] MEDS ORDERED: traMADol HCL 50 MG TAB PO PRN (09:30)
[2020-09-28] MEDS ORDERED: LORazepam 0.5 MG TAB PO PRN (09:30)
[2020-09-28] MEDS ORDERED: TEMAZEPAM 15 MG CAP PO PRN (09:30)
[2020-09-28] MEDS ORDERED: DEXTROSE (50%) 50ML SYRG IV PRN (09:30)
[2020-09-28] MEDS ORDERED: POTASSIUM EFFERVESENT TAB 25 MEQ PO ONE (10:00)
[2020-09-28] MEDS: FAMOTIDINE 20 MG TAB PO SCH ×2 (10:10→22:15)
[2020-09-28] MEDS: PANTOPRAZOLE 40 MG TAB PO SCH ×2 (10:11→22:16)
[2020-09-28] MEDS: ENOXAPARIN SOD 40 MG/0.4 ML SYRINGE SC SCH (10:11)
[2020-09-28] MEDS: ASPirin 81 mg TAB PO SCH (10:11)
[2020-09-28] MEDS: amLODIPine BESYLATE 5 MG TAB PO SCH (10:11)
[2020-09-28] MEDS: SODIUM CHLORIDE 0.9% 1,000 ML IV SCH ×2 (11:29→19:30)
[2020-09-28] MEDS: InsuLIN REG 1unit/0.01ml Soln (100units/ml) SC SCH ×3 (11:29→22:00)
[2020-09-28] MEDS: ACCU-CHEK COMFORT CURVE STRIP VI SCH ×3 (11:29→22:16)
[2020-09-28 13:00] VITALS: BP 140/73
[2020-09-28] MEDS: CLINDAMYCIN 600MG IV 50 ML IV SCH (16:02)
[2020-09-28 17:00] VITALS: BP 136/76
[2020-09-28 20:00] VITALS: BP 124/63
[2020-09-28 21:50] VITALS: BP 124/63
[2020-09-28] MEDS: ATORVASTATIN 20 MG TAB PO SCH (22:15)
[2020-09-29] MEDS: CLINDAMYCIN 600MG IV 50 ML IV SCH ×4 (00:06→23:29)
[2020-09-29 05:00] VITALS: BP 135/84
[2020-09-29 06:02] LABS: Basophils # (auto) 0 10 ^3/uL (0-0.2); Basophils % (auto) 0.4 % (0.0-2.0); Eosinophils # (auto) 0.1 10 ^3/uL (0-0.8); Eosinophils % (auto) 1.3 % (0.0-7.0); Hematocrit 38.5 % (41.0-53.0); Hemoglobin 13.6 g/dL (13.5-17.5); Mean Corpuscular Hemoglobin 32.4 pg (28.0-32.0); Mean Corpuscular Hgb Conc. 35.4 g/dL (32.0-36.0); Mean Corpuscular Volume 91.7 fL (80.0-100.0); Monocytes # (auto) 0.9 10 ^3/uL (0-1.3); Monocytes % (auto) 15.8 % (0.0-12.0); Neutrophils # (auto) 3.7 10 ^3/uL (1.6-8.6); Neutrophils % (auto) 64.5 % (37.0-80.0); Nucleated Red Blood Cells % 0.2 %; Platelet Count (auto) 136 10^3/uL (140-450); Red Cell Distribution Width 14.2 % (11.8-14.3); White Blood Cell 5.8 10^3/uL (4.4-10.8)
[2020-09-29 06:21] LABS: Potassium 3.6 mmol/L (3.5-5.1)
[2020-09-29] MEDS: InsuLIN REG 1unit/0.01ml Soln (100units/ml) SC SCH (06:21)
[2020-09-29] MEDS: SODIUM CHLORIDE 0.9% 1,000 ML IV SCH ×2 (06:21→15:10)
[2020-09-29] MEDS: ACCU-CHEK COMFORT CURVE STRIP VI SCH (06:21)
[2020-09-29 06:33] LABS: Albumin 3.1 g/dL (3.4-5.0); BUN/Creatinine Ratio 14.7; Bilirubin, Total 0.4 mg/dL (0.2-1.0); Calcium 8.1 mg/dL (8.5-10.1); Total Protein 6.6 g/dL (6.4-8.2)
[2020-09-29 08:15] VITALS: BP 130/75
[2020-09-29 08:53] VITALS: BP 130/75
[2020-09-29] MEDS: ASPirin 81 mg TAB PO SCH (09:46)
[2020-09-29] MEDS: levoFLOXacin 500MG 100 ML IV SCH (09:46)
[2020-09-29] MEDS: FAMOTIDINE 20 MG TAB PO SCH (09:47)
[2020-09-29] MEDS: PANTOPRAZOLE 40 MG TAB PO SCH ×2 (09:47→21:42)
[2020-09-29] MEDS: amLODIPine BESYLATE 5 MG TAB PO SCH (09:47)
[2020-09-29] MEDS: ENOXAPARIN SOD 40 MG/0.4 ML SYRINGE SC SCH (09:47)
[2020-09-29 13:06] VITALS: BP 131/75
[2020-09-29 17:00] VITALS: BP 121/70
[2020-09-29] MEDS: SUCRALFATE 1 GM/10 ML ORAL SUSP PO SCH ×2 (17:02→21:41)
[2020-09-29] MEDS: ATORVASTATIN 20 MG TAB PO SCH (21:42)
[2020-09-29 22:00] VITALS: BP 143/69
[2020-09-30] VITALS (8 sets, daily range): BP systolic 122–162; BP diastolic 59–83
[2020-09-30] MEDS: SODIUM CHLORIDE 0.9% 1,000 ML IV SCH ×2 (02:31→11:30)
[2020-09-30] MEDS: SUCRALFATE 1 GM/10 ML ORAL SUSP PO SCH ×4 (06:46→21:31)
[2020-09-30] MEDS: CLINDAMYCIN 600MG IV 50 ML IV SCH ×2 (08:47→16:30)
[2020-09-30] MEDS: levoFLOXacin 500MG 100 ML IV SCH (10:56)
[2020-09-30] MEDS: ENOXAPARIN SOD 40 MG/0.4 ML SYRINGE SC SCH (10:58)
[2020-09-30] MEDS: amLODIPine BESYLATE 5 MG TAB PO SCH (10:58)
[2020-09-30] MEDS: ASPirin 81 mg TAB PO SCH (10:58)
[2020-09-30] MEDS: PANTOPRAZOLE 40 MG TAB PO SCH ×2 (10:59→21:32)
[2020-09-30] MEDS ORDERED: IOHEXOL 350 MG/ML 100ML IJ ONE (12:34)
[2020-09-30] MEDS ORDERED: OPTISON 3ml Vial for INJ IV ONE (15:01)
[2020-09-30] MEDS: ATORVASTATIN 20 MG TAB PO SCH (21:32)
[2020-10-01] MEDS: CLINDAMYCIN 600MG IV 50 ML IV SCH ×4 (00:07→23:52)
[2020-10-01 05:00] VITALS: BP 145/81
[2020-10-01] MEDS: SUCRALFATE 1 GM/10 ML ORAL SUSP PO SCH ×4 (06:24→21:03)
[2020-10-01 07:48] VITALS: BP 147/83
[2020-10-01 07:50] VITALS: BP 147/83
[2020-10-01] MEDS: amLODIPine BESYLATE 5 MG TAB PO SCH (08:40)
[2020-10-01] MEDS ORDERED: LIDOCAINE HCL 100 MG/5ML (2%) SYRG INJ IV ONE (09:45)
[2020-10-01] MEDS ORDERED: PROPOFOL 10 MG/ML 20 ML IV ONE (09:45)
[2020-10-01 11:08] VITALS: BP 153/77
[2020-10-01] MEDS: ASPirin 81 mg TAB PO SCH (12:12)
[2020-10-01] MEDS: levoFLOXacin 500MG 100 ML IV SCH (12:12)
[2020-10-01] MEDS: PANTOPRAZOLE 40 MG TAB PO SCH ×2 (12:12→21:03)
[2020-10-01] MEDS: ENOXAPARIN SOD 40 MG/0.4 ML SYRINGE SC SCH (12:12)
[2020-10-01 16:00] VITALS: BP 157/85
[2020-10-01] MEDS: ATORVASTATIN 20 MG TAB PO SCH (21:03)
[2020-10-01 22:00] VITALS: BP 151/80
[2020-10-02 05:00] VITALS: BP 142/81
[2020-10-02] MEDS: SUCRALFATE 1 GM/10 ML ORAL SUSP PO SCH (06:22)
[2020-10-02 08:00] VITALS: BP 152/80
[2020-10-02] MEDS: CLINDAMYCIN 600MG IV 50 ML IV SCH (08:00)
[2020-10-02 09:00] VITALS: BP 155/80
[2020-10-02] MEDS: ENOXAPARIN SOD 40 MG/0.4 ML SYRINGE SC SCH (10:00)
[2020-10-02] MEDS: levoFLOXacin 500MG 100 ML IV SCH (10:00)
[2020-10-02 10:29] VITALS: BP 152/80
[2020-10-02] MEDS: PANTOPRAZOLE 40 MG TAB PO SCH (10:30)
[2020-10-02] MEDS: ASPirin 81 mg TAB PO SCH (10:30)
[2020-10-02] MEDS: amLODIPine BESYLATE 5 MG TAB PO SCH (10:30)
[2020-10-02 12:39] VITALS: BP 136/74
== END 2020-10-02 11:19 | disposition home or self-care (01) | DRG 872 ==
LOC: ER 20:41 → TELE 09-28 08:14 → TELE-EAST 09-28 10:45
PROVIDERS: ADMIT Internal Medicine; ATTEND Family Medicine
PROC: 0DB68ZX Excision of Stomach, Via Natural or Artificial Opening Endoscopic, Diagnostic (ICD-10-PCS; 2020-10-01)
PROC: 0DB98ZX Excision of Duodenum, Via Natural or Artificial Opening Endoscopic, Diagnostic (ICD-10-PCS; principal; 2020-10-01 09:51)
DX: A41.9 Sepsis, unspecified organism (principal); L03.116 Cellulitis of left lower limb; I50.32 Chronic diastolic (congestive) heart failure; R73.03 Prediabetes; Q85.00 Neurofibromatosis, unspecified; E66.01 Morbid (severe) obesity due to excess calories; F41.8 Other specified anxiety disorders; K21.9 Gastro-esophageal reflux disease without esophagitis; M10.9 Gout, unspecified; I45.10 Unspecified right bundle-branch block; K64.8 Other hemorrhoids; Z68.36 Body mass index [BMI] 36.0-36.9, adult; D64.9 Anemia, unspecified; E78.00 Pure hypercholesterolemia, unspecified; F32.9 Major depressive disorder, single episode, unspecified; F41.9 Anxiety disorder, unspecified; Z20.822 Contact with and (suspected) exposure to COVID-19; K29.70 Gastritis, unspecified, without bleeding; E78.5 Hyperlipidemia, unspecified; K44.9 Diaphragmatic hernia without obstruction or gangrene; Z86.73 Personal history of transient ischemic attack (TIA), and cerebral infarction without residual deficits; Z83.3 Family history of diabetes mellitus; Z80.0 Family history of malignant neoplasm of digestive organs; Z80.8 Family history of malignant neoplasm of other organs or systems; Z82.49 Family history of ischemic heart disease and other diseases of the circulatory system; I11.0 Hypertensive heart disease with heart failure
CPT/HCPCS: 36415; 71045; 71260; 71275; 74177; 80053; 81001; 82150; 82962; 83605; 83690; 83880; 84484; 85025; 85379; 85610; 85730; 87040; 87426; 93005; 93306; 93970; 96365; 96367; G0378; J0696; J1956; J2704; J3490; Q9956

== ENCOUNTER → 2021-07-14 | Outpatient (CLI) | payer MEDICARE, MEDICAID ==
[2021-07-14 13:01] LABS: Basophils # (auto) 0.1 10 ^3/uL (0-0.2); Basophils % (auto) 1.1 % (0.0-2.0); Eosinophils # (auto) 0.2 10 ^3/uL (0-0.8); Eosinophils % (auto) 3.1 % (0.0-7.0); Hematocrit 43.6 % (41.0-53.0); Hemoglobin 15.1 g/dL (13.5-17.5); Lymphocytes # (auto) 1.2 10 ^3/uL (0.4-5.4); Lymphocytes % (auto) 18.9 % (10.0-50.0); Mean Corpuscular Hgb Conc. 34.6 g/dL (32.0-36.0); Mean Corpuscular Volume 92.2 fL (80.0-100.0); Monocytes # (auto) 0.8 10 ^3/uL (0-1.3); Monocytes % (auto) 13.2 % (0.0-12.0); Neutrophils # (auto) 3.9 10 ^3/uL (1.6-8.6); Neutrophils % (auto) 63.7 % (37.0-80.0); Nucleated Red Blood Cells % 0.3 %; Red Blood Cells 4.73 10^6/uL (4.5-5.90); White Blood Cell 6.1 10^3/uL (4.4-10.8)
[2021-07-14 13:19] LABS: Potassium 3.6 mmol/L (3.5-5.1)
[2021-07-14 13:25] LABS: Bilirubin, Total 0.4 mg/dL (0.2-1.0); Calcium 8.8 mg/dL (8.5-10.1)
== END | disposition home or self-care (01) ==
LOC: LAB 07:04
PROVIDERS: ATTEND Internal Medicine
DX: E11.9 Type 2 diabetes mellitus without complications (principal); F32.A Depression, unspecified; I10 Essential (primary) hypertension
CPT/HCPCS: 36415; 80053; 85025

== ENCOUNTER 2022-06-20 07:29 | Emergency (ER) | payer OTHER, MEDICAID ==
[~2022-06-20] VITALS: Ht 182.9 cm; Wt 112.0 kg
[~2022-06-20 07:29] MED LIST changes: +ATOR10TA52 PO
[2022-06-20 08:16] LABS: Basophils # (auto) 0 10 ^3/uL (0-0.2); Basophils % (auto) 0.3 % (0.0-2.0); Eosinophils # (auto) 0.2 10 ^3/uL (0-0.8); Eosinophils % (auto) 2.4 % (0.0-7.0); Hematocrit 47.6 % (41.0-53.0); Hemoglobin 15.9 g/dL (13.5-17.5); Lymphocytes # (auto) 1.1 10 ^3/uL (0.4-5.4); Lymphocytes % (auto) 16.6 % (10.0-50.0); Mean Corpuscular Hemoglobin 31.2 pg (28.0-32.0); Mean Corpuscular Hgb Conc. 33.5 g/dL (32.0-36.0); Mean Corpuscular Volume 93.2 fL (80.0-100.0); Monocytes # (auto) 0.6 10 ^3/uL (0-1.3); Monocytes % (auto) 9.2 % (0.0-12.0); Neutrophils # (auto) 4.8 10 ^3/uL (1.6-8.6); Neutrophils % (auto) 71.5 % (37.0-80.0); Red Blood Cells 5.11 10^6/uL (4.5-5.90); Red Cell Distribution Width 13.7 % (11.8-14.3); White Blood Cell 6.8 10^3/uL (4.4-10.8)
[2022-06-20 08:23] LABS: INR 1.03 (0.9-1.15); Partial Thromboplastin Time 28.7 sec (24.6-33.4)
[2022-06-20] MEDS ORDERED: cloNIDine HCL 0.1 MG TAB PO ONE (08:30)
[2022-06-20 08:33] LABS: Albumin 4.2 g/dL (3.4-5.0); Calcium 8.3 mg/dL (8.5-10.1); Potassium 3.6 mmol/L (3.5-5.1)
[2022-06-20 08:37] LABS: BUN/Creatinine Ratio 18.3; Bilirubin, Total 0.7 mg/dL (0.2-1.0); Total Protein 6.8 g/dL (6.4-8.2)
[2022-06-20] MEDS ORDERED: LEVO-28 PO (10:08)
[2022-06-20 13:26] VITALS: BP 168/76
== END 2022-06-20 13:31 | disposition home or self-care (01) ==
LOC: ER 07:29
DX: J40 Bronchitis, not specified as acute or chronic (principal); I10 Essential (primary) hypertension; F41.9 Anxiety disorder, unspecified; J44.9 Chronic obstructive pulmonary disease, unspecified; E78.5 Hyperlipidemia, unspecified; F12.90 Cannabis use, unspecified, uncomplicated; Z87.891 Personal history of nicotine dependence
CPT/HCPCS: 36415; 71045; 80053; 83880; 84484; 85025; 85379; 85610; 85730; 93005

== ENCOUNTER → 2022-06-30 | Outpatient (CLI) | payer OTHER, MEDICAID ==
[~2022-06-30] MED LIST changes: +LEVO-28 PO
[2022-06-30 09:34] LABS: Urine Amorphous Crystal FEW /hpf (None Seen); Urine Bacteria NONE SEEN /hpf (None Seen); Urine Blood Negative /uL (Negative); Urine Specific Gravity 1.014 (1.001-1.035); Urine WBC 2 /hpf (0 - 3)
[2022-06-30 10:03] LABS: Calcium 8.8 mg/dL (8.5-10.1); Potassium 3.8 mmol/L (3.5-5.1); Uric Acid 5.3 mg/dL (3.5-7.2)
[2022-06-30 10:07] LABS: BUN/Creatinine Ratio 16.3; Bilirubin, Total 0.6 mg/dL (0.2-1.0)
== END | disposition home or self-care (01) ==
LOC: LAB 09:05
PROVIDERS: ATTEND Internal Medicine
DX: Z12.11 Encounter for screening for malignant neoplasm of colon (principal); I27.20 Pulmonary hypertension, unspecified; F32.5 Major depressive disorder, single episode, in full remission; E66.01 Morbid (severe) obesity due to excess calories
CPT/HCPCS: 36415; 80053; 80061; 81001; 82043; 83036; 83880; 84153; 84550

== ENCOUNTER → 2022-08-22 | Outpatient (CLI) | payer MEDICARE, MEDICAID | END | disposition home or self-care (01) | LOC: LAB 12:10 | PROVIDERS: ATTEND Licensed Practical Nurse | DX: Z20.2 Contact with and (suspected) exposure to infections with a predominantly sexual mode of transmission (principal); Z79.899 Other long term (current) drug therapy | CPT/HCPCS: 87086 ==

== ENCOUNTER → 2022-08-25 | Outpatient (CLI) | payer OTHER, MEDICAID ==
[2022-08-26 08:07] LABS: RPR Non Reactive (Non Reactive)
== END | disposition home or self-care (01) ==
LOC: LAB 06:15
PROVIDERS: ATTEND Licensed Practical Nurse
DX: Z11.4 Encounter for screening for human immunodeficiency virus [HIV] (principal); Z20.2 Contact with and (suspected) exposure to infections with a predominantly sexual mode of transmission; Z72.51 High risk heterosexual behavior
CPT/HCPCS: 86592; 86703

== ENCOUNTER 2022-12-29 09:07 | Emergency (ER) | payer OTHER, MEDICAID ==
[~2022-12-29] VITALS: Ht 180.3 cm; Wt 111.3 kg
[~2022-12-29 09:07] MED LIST changes: -LEVO-28 PO; +LEVO500T91 PO; +LORA-1121 PO; -LORA0.5T20 PO; +METH-1182 PO; -METH750T22 PO
[2022-12-29 09:20] VITALS: BP 169/74; RESP 18; O2SAT 96
[2022-12-29 09:33] LABS: Basophils # (auto) 0.1 10 ^3/uL (0-0.2); Basophils % (auto) 1.1 % (0.0-2.0); Eosinophils # (auto) 0.2 10 ^3/uL (0-0.8); Eosinophils % (auto) 2.5 % (0.0-7.0); Hematocrit 43.9 % (41.0-53.0); Hemoglobin 15.1 g/dL (13.5-17.5); Lymphocytes # (auto) 1.2 10 ^3/uL (0.4-5.4); Mean Corpuscular Hemoglobin 31.9 pg (28.0-32.0); Mean Corpuscular Hgb Conc. 34.4 g/dL (32.0-36.0); Mean Corpuscular Volume 92.7 fL (80.0-100.0); Monocytes # (auto) 0.6 10 ^3/uL (0-1.3); Monocytes % (auto) 10.1 % (0.0-12.0); Neutrophils # (auto) 4.1 10 ^3/uL (1.6-8.6); Neutrophils % (auto) 66.3 % (37.0-80.0); Red Blood Cells 4.73 10^6/uL (4.5-5.90); White Blood Cell 6.2 10^3/uL (4.4-10.8)
[2022-12-29 09:51] LABS: Albumin 3.9 g/dL (3.4-5.0); Calcium 8.4 mg/dL (8.5-10.1); Potassium 3.7 mmol/L (3.5-5.1)
[2022-12-29 09:57] LABS: BUN/Creatinine Ratio 10.8 (10.0-20.0); Bilirubin, Total 0.4 mg/dL (0.2-1.0); Total Protein 6.6 g/dL (6.4-8.2)
[2022-12-29 10:02] LABS: Urine Bacteria NONE SEEN /hpf (None Seen); Urine Blood TRACE /uL (Negative); Urine Clarity HAZY (Clear); Urine Color Yellow (Yellow); Urine Protein, UAD Negative (Negative); Urine Specific Gravity 1.015 (1.001-1.035); Urine Urobilinogen Normal (Negative); Urine WBC 10 /hpf (0 - 3); Urine pH 7.5 (5.0-8.0)
[2022-12-29 10:10] VITALS: PULSE 54
[2022-12-29] MEDS ORDERED: BACDST PO (12:29)
== END 2022-12-29 13:22 | disposition home or self-care (01) ==
LOC: ER 09:07
DX: R07.89 Other chest pain (principal); N39.0 Urinary tract infection, site not specified; F41.9 Anxiety disorder, unspecified; J44.9 Chronic obstructive pulmonary disease, unspecified; I10 Essential (primary) hypertension; E78.5 Hyperlipidemia, unspecified; F15.90 Other stimulant use, unspecified, uncomplicated; Z86.73 Personal history of transient ischemic attack (TIA), and cerebral infarction without residual deficits; Z87.891 Personal history of nicotine dependence; Z79.82 Long term (current) use of aspirin; Z79.899 Other long term (current) drug therapy
CPT/HCPCS: 36415; 71045; 80053; 81001; 84484; 85025; 85379; 93005

== ENCOUNTER 2023-04-13 02:57 | Inpatient (IN) | payer OTHER, MEDICAID ==
[~2023-04-13] VITALS: Ht 180.3 cm; Wt 115.9 kg
[~2023-04-13 02:57] MED LIST changes: +BACDST PO
[2023-04-13 05:36] VITALS: BP 153/88; PULSE 67; RESP 18; TEMP 98.8
[2023-04-13 05:48] VITALS: BP 153/88; PULSE 67; RESP 18; TEMP 98.8; O2SAT 99
[2023-04-13] MEDS ORDERED: NITROGLYCERIN 0.4 MG SL TAB SL PRN (06:30)
[2023-04-13] MEDS ORDERED: ACETAMINOPHEN 325 MG TAB PO PRN (06:30)
[2023-04-13] MEDS ORDERED: TEMAZEPAM 15 MG CAP PO PRN (06:30)
[2023-04-13] MEDS ORDERED: ONDANSETRON HCL 4 MG/2 ML VIAL IV PRN (06:30)
[2023-04-13] MEDS ORDERED: MORPHINE SULFATE INJ 2 MG/ml SYRG IV PRN (06:30)
[2023-04-13 08:00] VITALS: BP 130/85; PULSE 62; PULSE 67; RESP 18; TEMP 97.6; O2SAT 95
[2023-04-13 09:00] VITALS: BP 130/85; PULSE 62; RESP 18; TEMP 97.6; O2SAT 95
[2023-04-13 09:52] LABS: Basophils # (auto) 0 10 ^3/uL (0-0.2); Basophils % (auto) 0.4 % (0.0-2.0); Eosinophils # (auto) 0.2 10 ^3/uL (0-0.8); Eosinophils % (auto) 2.6 % (0.0-7.0); Hematocrit 43.2 % (41.0-53.0); Hemoglobin 14.4 g/dL (13.5-17.5); Lymphocytes # (auto) 0.9 10 ^3/uL (0.4-5.4); Lymphocytes % (auto) 12.4 % (10.0-50.0); Mean Corpuscular Hemoglobin 31.4 pg (28.0-32.0); Mean Corpuscular Hgb Conc. 33.4 g/dL (32.0-36.0); Mean Corpuscular Volume 93.9 fL (80.0-100.0); Monocytes # (auto) 0.7 10 ^3/uL (0-1.3); Monocytes % (auto) 10.2 % (0.0-12.0); Neutrophils # (auto) 5.2 10 ^3/uL (1.6-8.6); Neutrophils % (auto) 74.4 % (37.0-80.0); Nucleated Red Blood Cells % 0.2 %; Red Cell Distribution Width 14.2 % (11.8-14.3)
[2023-04-13] MEDS ORDERED: amLODIPine BESYLATE 5 MG TAB PO SCH (10:00)
[2023-04-13] MEDS ORDERED: LOSARTAN POTASSIUM 50 MG TAB PO SCH (10:00)
[2023-04-13] MEDS ORDERED: ENOXAPARIN SOD 40 MG/0.4 ML SYRINGE SC SCH (10:00)
[2023-04-13] MEDS ORDERED: CLOPIDOGREL BISULFATE 75 MG TAB PO SCH (10:00)
[2023-04-13] MEDS ORDERED: ASPirin 81 mg TAB PO SCH (10:00)
[2023-04-13] MEDS ORDERED: TRIAMTERENE/HCTZ 37.5/25 MG CAP/TAB PO SCH (10:00)
[2023-04-13 10:21] LABS: Alanine Aminotransferase 20 U/L (7-40); Albumin 4.3 g/dL (3.2-4.8); Alkaline Phosphatase 65 U/L (46-116); Anion Gap 8 (5-15); Aspartate Aminotransferase 19 U/L (13-40); Blood Urea Nitrogen 10 mg/dL (9-23); Calcium 9.1 mg/dL (8.5-10.1); Carbon Dioxide 26 mmol/L (20-30); Chloride 106 mmol/L (98-107); Glucose 148 mg/dL (74-106); Potassium 3.8 mmol/L (3.5-5.1); Sodium 140 mmol/L (136-145)
[2023-04-13 10:22] LABS: Bilirubin, Total 0.4 mg/dL (0.2-1.0); Total Protein 6.4 g/dL (5.7-8.2)
[2023-04-13] MEDS: CIPROFLOXACIN 0.3%OPTH(EYE) SOL 5ML LEFTEYE SCH ×2 (10:35→14:46)
[2023-04-13] MEDS ORDERED: SERTRALINE HCL 50 MG TAB PO SCH (11:45)
[2023-04-13] MEDS ORDERED: ESCI10TA PO ×3 (12:30→14:30)
[2023-04-13] MEDS ORDERED: CIPR0.3S4 LEFTEYE (12:34)
[2023-04-13] MEDS ORDERED: CLOP75TA70 PO (12:34)
[2023-04-13 13:00] VITALS: BP 157/89; PULSE 60; RESP 17; TEMP 98.2; O2SAT 94
[2023-04-13] MEDS ORDERED: GUAI200T6 PO (13:50)
[2023-04-13] MEDS ORDERED: QUET50TA PO (14:30)
[2023-04-13 15:54] VITALS: BP 130/85; PULSE 62; RESP 18; TEMP 97.6; O2SAT 95
[2023-04-13] MEDS ORDERED: ATORVASTATIN 20 MG TAB PO SCH (22:00)
[2023-04-13] MEDS ORDERED: QUEtiapine FUMARATE 25 MG TAB PO SCH (22:00)
[2023-04-14 07:07] LABS: RPR Non Reactive (Non Reactive)
== END 2023-04-13 14:26 | disposition home or self-care (01) | DRG 69 ==
LOC: TELE-CENTR 05:07
PROVIDERS: ADMIT Internal Medicine; ATTEND Internal Medicine
DX: G45.9 Transient cerebral ischemic attack, unspecified (principal); F33.3 Major depressive disorder, recurrent, severe with psychotic symptoms; Q85.89 Other phakomatoses, not elsewhere classified; E66.01 Morbid (severe) obesity due to excess calories; E78.5 Hyperlipidemia, unspecified; F41.9 Anxiety disorder, unspecified; H40.9 Unspecified glaucoma; R20.0 Anesthesia of skin; A64 Unspecified sexually transmitted disease; H10.89 Other conjunctivitis; I10 Essential (primary) hypertension; Z80.0 Family history of malignant neoplasm of digestive organs; Z82.49 Family history of ischemic heart disease and other diseases of the circulatory system; Z83.3 Family history of diabetes mellitus; Z86.73 Personal history of transient ischemic attack (TIA), and cerebral infarction without residual deficits
CPT/HCPCS: 36415; 70551; 80053; 83036; 85025; 86592; 86703; 93306; G0378

== ENCOUNTER 2024-02-10 02:14 | Inpatient (IN) | payer OTHER, MEDICAID ==
[2024-02-10] VITALS (13 sets, daily range): BP systolic 136–188; BP diastolic 58–91; PULSE 56–72; RESP 16–21; TEMP 97.4–98; O2SAT 92–96
[~2024-02-10] VITALS: Ht 180.3 cm; Wt 115.5 kg
[~2024-02-10 02:14] MED LIST changes: -ATOR10TA52 PO; -BACDST PO; +CIPR0.3S19 LEFTEYE; +CLOP75TA70 PO; -DOXY-286 PO; +ESCI10TA PO; +GUAI200T6 PO; -HYDR25SU21 PR; -LEVO500T91 PO; -LORA-1121 PO; -METR500T PO; +QUET50TA PO
[2024-02-10] MEDS ORDERED: MORPHINE SULFATE INJ 2 MG/ml SYRG IV PRN (04:00)
[2024-02-10] MEDS ORDERED: NITROGLYCERIN 0.4 MG SL TAB SL PRN (04:00)
[2024-02-10] MEDS ORDERED: ONDANSETRON HCL 4 MG/2 ML VIAL IV PRN (04:00)
[2024-02-10] MEDS: hydrALAZINE HCL 20 MG/ML VL IV PRN (05:04)
[2024-02-10] MEDS: cloNIDine HCL 0.1 MG TAB PO ONE (06:27)
[2024-02-10] MEDS: ACETAMINOPHEN 325 MG TAB PO PRN (06:30)
[2024-02-10] MEDS ORDERED: HYDROcodone-ACET 5/325MG TAB PO PRN (07:00)
[2024-02-10] MEDS: HYDROcodone-ACET 5/325MG TAB PO PRN (07:07)
[2024-02-10 07:12] LABS: Basophils # (auto) 0 10 ^3/uL (0-0.2); Basophils % (auto) 0.4 % (0.0-2.0); Eosinophils # (auto) 0.2 10 ^3/uL (0-0.8); Eosinophils % (auto) 2.5 % (0.0-7.0); Hematocrit 46.4 % (41.0-53.0); Hemoglobin 16.1 g/dL (13.5-17.5); Lymphocytes # (auto) 1.4 10 ^3/uL (0.4-5.4); Lymphocytes % (auto) 14.7 % (10.0-50.0); Mean Corpuscular Hemoglobin 31.5 pg (28.0-32.0); Mean Corpuscular Hgb Conc. 34.7 g/dL (32.0-36.0); Mean Corpuscular Volume 90.9 fL (80.0-100.0); Monocytes # (auto) 0.8 10 ^3/uL (0-1.3); Neutrophils # (auto) 6.8 10 ^3/uL (1.6-8.6); Neutrophils % (auto) 73.4 % (37.0-80.0); Platelet Count (auto) 207 10^3/uL (140-450); Red Blood Cells 5.11 10^6/uL (4.5-5.90); Red Cell Distribution Width 16.5 % (11.8-14.3); White Blood Cell 9.2 10^3/uL (4.4-10.8)
[2024-02-10 07:35] LABS: Alanine Aminotransferase 18 U/L (7-40); Albumin 4.5 g/dL (3.2-4.8); Alkaline Phosphatase 72 U/L (46-116); Anion Gap 9 (5-15); Aspartate Aminotransferase 16 U/L (13-40); BUN/Creatinine Ratio 13.2 (10.0-20.0); Blood Urea Nitrogen 10 mg/dL (9-23); Calcium 9.4 mg/dL (8.7-10.4); Carbon Dioxide 25 mmol/L (20-30); Chloride 106 mmol/L (98-107); Glucose 111 mg/dL (74-106); Potassium 3.7 mmol/L (3.5-5.1); Sodium 140 mmol/L (136-145)
[2024-02-10 07:36] LABS: Bilirubin, Total 0.5 mg/dL (0.2-1.0); Total Protein 6.7 g/dL (5.7-8.2)
[2024-02-10] MEDS: ASPirin 81 mg TAB PO SCH ×2 (10:08→11:23)
[2024-02-10] MEDS: TRIAMTERENE/HCTZ 37.5/25 MG CAP/TAB PO SCH (10:08)
[2024-02-10] MEDS: LOSARTAN POTASSIUM 50 MG TAB PO SCH (10:09)
[2024-02-10] MEDS: amLODIPine BESYLATE 5 MG TAB PO SCH (10:12)
[2024-02-10] MEDS: ENOXAPARIN SOD 40 MG/0.4 ML SYRINGE SC SCH (10:12)
[2024-02-10] MEDS ORDERED: ASPI-325 PO (14:48)
[2024-02-10] MEDS ORDERED: ATOR-507 PO (14:48)
[2024-02-10] MEDS ORDERED: CLOP75TA28 PO (14:48)
[2024-02-10] MEDS ORDERED: CYAN100056 PO (14:48)
[2024-02-10] MEDS: CYANOCOBALAMIN (B-12) 1000 MCG/1 ML VIAL IM ONE (15:34)
[2024-02-10 16:17] LABS: Amphetamine Screen, Urine Neg (NEGATIVE); Barbiturate Scree,Urine Neg (NEGATIVE); Benzodiazephine Screen, Urine Neg (NEGATIVE); Cannabinoid Screen, Urine Pos (NEGATIVE); Cocaine Screen, Urine Neg (NEGATIVE); Opiate Scree,Urine Neg (NEGATIVE); Phencyclidine Screen, Urine Neg (NEGATIVE)
[2024-02-10] MEDS ORDERED: ATORVASTATIN 20 MG TAB PO SCH (22:00)
== END 2024-02-10 17:40 | disposition home or self-care (01) | DRG 69 ==
LOC: EAST 02:14 → TELE-E-ADS 03:04
PROVIDERS: ADMIT Nurse Practitioner; ATTEND Internal Medicine
DX: G45.9 Transient cerebral ischemic attack, unspecified (principal); Q85.89 Other phakomatoses, not elsewhere classified; I10 Essential (primary) hypertension; J44.9 Chronic obstructive pulmonary disease, unspecified; E78.5 Hyperlipidemia, unspecified; F17.200 Nicotine dependence, unspecified, uncomplicated; E66.01 Morbid (severe) obesity due to excess calories; Z68.35 Body mass index [BMI] 35.0-35.9, adult; Z83.3 Family history of diabetes mellitus; Z80.0 Family history of malignant neoplasm of digestive organs; Z82.49 Family history of ischemic heart disease and other diseases of the circulatory system; Z79.82 Long term (current) use of aspirin; Z79.899 Other long term (current) drug therapy; I69.320 Aphasia following cerebral infarction
CPT/HCPCS: 36415; 70551; 80053; 80307; 82607; 85025; G0378

== ENCOUNTER → 2024-07-10 | Outpatient (CLI) | payer OTHER, MEDICAID ==
[~2024-07-10] MED LIST changes: -AML5T PO; +ASPI-325 PO; -ASPI81CH43 PO; +ATOR-507 PO; -ATOR20TA50 PO; -CIPR0.3S19 LEFTEYE; +CLOP75TA28 PO; -CLOP75TA70 PO; +CYAN100056 PO; -ESCI10TA PO; -GUAI200T6 PO; -HYDR25TA5 PO; -LOS25T PO; -METH-1182 PO; -PANT40T PO; -QUET50TA PO
[2024-07-10 14:10] LABS: Urine Bacteria None Seen /hpf (None Seen)
[2024-07-10 15:26] LABS: Urine Blood Negative /uL (Negative); Urine Clarity Clear (Clear); Urine Color Yellow (Yellow); Urine Protein, UAD TRACE (Negative); Urine Specific Gravity 1.019 (1.001-1.035); Urine Squamous Epithelial Cell None Seen /hpf (<5); Urine Urobilinogen Normal (Negative); Urine WBC 5 /HPF (0-3)
== END | disposition home or self-care (01) ==
LOC: LAB 14:08
PROVIDERS: ATTEND Internal Medicine
DX: R31.29 Other microscopic hematuria (principal)
CPT/HCPCS: 81001

== ENCOUNTER → 2024-09-20 | Outpatient (CLI) | payer OTHER, MEDICAID ==
[~2024-09-20] MED LIST changes: +AMLO1TAB23 PO; +CEFP200T15 PO; -CLOP75TA28 PO; +HYDR12.59 PO; +LISI20TA56 PO; +METF-370 PO
[2024-09-20 10:18] LABS: Urine Bacteria None Seen /hpf (None Seen)
[2024-09-20 10:51] LABS: Urine Blood TRACE /uL (Negative); Urine Clarity Clear (Clear); Urine Color Light-Yellow (Yellow); Urine Protein, UAD Negative (Negative); Urine Specific Gravity 1.019 (1.001-1.035); Urine Squamous Epithelial Cell None Seen /hpf (<5); Urine Urobilinogen Normal (Negative); Urine WBC 4 /HPF (0-3); Urine pH 6.5 (5.0-9.0)
[2024-09-20 10:59] LABS: Cholesterol 203 mg/dL (< 200); HDL Cholesterol 28 mg/dL (40-59); Triglycerides 599 mg/dL (< 150)
== END | disposition home or self-care (01) ==
LOC: LAB 10:03
PROVIDERS: ATTEND Internal Medicine
DX: K76.0 Fatty (change of) liver, not elsewhere classified (principal); E78.5 Hyperlipidemia, unspecified; N39.0 Urinary tract infection, site not specified
CPT/HCPCS: 36415; 80061; 81001

== ENCOUNTER → 2024-09-28 | Outpatient (CLI) | payer OTHER, MEDICAID ==
[2024-09-28 09:10] LABS: Urine Bacteria None Seen /hpf (None Seen)
[2024-09-28 09:25] LABS: Urine Blood Negative /uL (Negative); Urine Clarity Clear (Clear); Urine Color Light-Yellow (Yellow); Urine Protein, UAD Negative (Negative); Urine Specific Gravity 1.015 (1.001-1.035); Urine Squamous Epithelial Cell FEW /hpf (<5); Urine Urobilinogen Normal (Negative); Urine WBC 5 /HPF (0-3)
== END | disposition home or self-care (01) ==
LOC: LAB 09:07
PROVIDERS: ATTEND Internal Medicine
DX: N39.0 Urinary tract infection, site not specified (principal)
CPT/HCPCS: 81001; 87086

== ENCOUNTER 2025-02-22 08:53 | Inpatient (IN) | payer OTHER, MEDICAID ==
[~2025-02-22] VITALS: Ht 180.3 cm; Wt 130.5 kg
--- NOTE | 2025-02-22 09:10 | ECG ---
[facility] Test Date: 2025-02-22 Test Time: 09:05:23 Pat Name: MARSHALL GARVIN Department: [facility] ED Patient ID: [facility]-[id number] Room: 0215 Gender: M Temporary Administrative Assistant: VIOLA : 1960 Requested By: KALYN ZAPATA Order Number: [id number] Reading MD: Merrill Willis Measurements Intervals [place] Rate: 69 P: 141 MA: 149 QRS: -112 QRSD: 160 T: 32 QT: 435 QTc: 466 Interpretive Statements Sinus or ectopic atrial rhythm RBBB and LAFB Abnormal T, consider ischemia, lateral leads Baseline wander in lead(s) II,III,aVF Electronically Signed On 02-24-2025 20:36:01 PDT by Merrill Willis Please click the below link to view image of tracing.
--- NOTE | 2025-02-22 10:19 | ED.PDOC ---
Musculoskeletal HPI Comments John Lott Is a 64-year-old male, with past medical history of Sturge Bianka syndrome, epilepsy, DM2, HTN, and hyperlipidemia. The patient came to the ED with chief complaint of 3 years of intermittent bilateral leg pain, swelling and erythema. Two weeks ago, the patient start noticing increase on swelling on the left leg with small blister that ruptured with yellowish foul smelling discharge, the pain is 6/10 to the touch, burning like type. Today, the pain in his legs worsen to 8/10, this prompted his visit to the ED. The patient denies fever, chills, shortness of breath, chest pain, abdominal pain or other symtoms. In the ED: BP 154/96mmHg, 98bpm. The patient will be admitted for further assessment and management. Chief Complaint: Lower Extremity Time Seen by : 09:03 Primary Care Provider: DEMI Reviewed Notes: Nurses Notes, Medications, Allergies Allergies: Coded Allergies: NO KNOWN ALLERGIES (Unverified , 01/23/19) Home Meds Active Scripts Hydrochlorothiazide (Hydrochlorothiazide) 12.5 Mg Cap, 1 CAP PO DAILY for 30 Days, #30 CAP 5 Refills Prov:MONIKA DERAS 08/25/24 Cefpodoxime Proxetil (Cefpodoxime Proxetil) 200 Mg Tab, 1 TAB PO BID for 5 Days, #10 TAB Prov:MONIKA DERAS RESIDENT 08/25/24 Amlodipine Besylate (Amlodipine Besylate) 10 Mg Tab, 1 TAB PO DAILY for 30 Days, #30 TAB 5 Refills Prov:MONIKA DERAS 08/25/24 Lisinopril (Lisinopril) 20 Mg Tab, 1 TAB PO DAILY for 30 Days, #30 TAB 5 Refills Prov:MONIKA DERAS RESIDENT 08/25/24 Cyanocobalamin (B-12) 1,000 Mcg Cap, 1000 MCG PO QAM for 30 Days, #30 CAP Prov:SKYLER MATHEWS MD 02/10/24 Atorvastatin Calcium (Lipitor) 40 Mg Tab, 1 TAB PO QPM, #30 TAB 1 Refill Prov:SKYLER MATHEWS MD 02/10/24 Aspirin (Aspirin Low Dose) 81 Mg Tab, 81 MG PO DAILY for 30 Days, #30 TAB Prov:SKYLER MATHEWS MD 02/10/24 Reported Medications Metformin Hydrochloride (Metformin Hcl) 500 Mg Tab, 1 TAB PO BID 08/21/24 Information Source: Patient Mode of Arrival: Ambulatory Location: Bilateral Timing: Weeks Severity: Severe Bear Weight: Limited Pain: Severe Past Medical History PAST MEDICAL HISTORY: Anxiety, COPD, CVA, High Lipids, HTN, Seizures, TIA Surgical History: Denies all surgeries Family History Family History: No family hx of Cancer, No family hx of Heart radha, Family hx of DM Social History Smoker: Quit Greater Than 1 Year Alcohol: Occasionally Drugs: Marijuana Lives In: Home Constitutional: denies: chills, diaphoresis, fatigue, fever, malaise, sweats, weakness, others EENTM: denies: blurred vision, double vision, ear bleeding, ear discharge, ear drainage, ear pain, ear ringing, eye pain, eye redness, hearing loss, mouth pain, mouth swelling, nasal discharge, nose bleeding, nose congestion, nose pain, photophobia, tearing, throat pain, throat swelling, voice changes, others Respiratory: denies: cough, hemoptysis, orthopnea, SOB at rest, shortness of breath, SOB with excertion, stridor, wheezing, others Cardiovascular: denies: chest pain, dizzy spells, diaphoresis, Dyspnea on exertion, edema, irregular heart beat, left arm pain, lightheadedness, palpitations, PND, syncope, others Gastrointestinal: denies: abdomen distended, abdominal pain, blood streaked bowels, constipated, diarrhea, dysphagia, difficulty swallowing, hematemesis, melena, nausea, poor appetite, poor fluid intake, rectal bleeding, rectal pain, vomiting, others Neurological: denies: dizziness, fainting, headache, left sided numbness, left sided weakness, numbness, paresthesia, pre-existing deficit, right sided numbness, right sided weakness, seizure, speech problems, tingling, tremors, weakness, others Musculoskeletal: reports: others (Bilateral leg swelling, erythema and yellowish discharege. ); denies: back pain, gout, joint pain, joint swelling, muscle pain, muscle stiffness, neck pain Integumetry: denies: bruises, change in color, change in hair/nails, dryness, laceration, lesions, lumps, rash, wounds, others Allergic/Immunocompromised: denies: Difficulty Healing, Frequent Infections, Hives, Itching, others Hematologic/Lymphatic: denies: anemia, blood clots, easy bleeding, easy bruising, swollen glands, others Endocrine: denies: excessive hunger, excessive sweating, excessive thirst, excessive urination, flushing, intolerance to cold, intolerance to heat, unexplained weight gain, unexplained weight loss, others Psychiatric: denies: anxiety, bipolar disorder, depression, hopeless, panic disorder, schizophrenia, sleepless, suicidal, others Physical Exam Exam Comments Alert, oriented x3. General Appearance: No Apparent Distress, Normal HEENT: Head (Port wine lesion on the left side of the face and scalp. Blind on the left eye. ), Normal ENT Inspection, Pharynx Normal, TMs Normal Neck: Full Range of Motion, Non-Tender, Normal, Normal Inspection Respiratory: Chest Non-Tender, Lungs Clear, No Accessory Muscle Use, No Respiratory Distress, Normal Breath Sounds Cardiovascular: No Edema, No JVD, No Murmur, No Gallop, Normal Peripheral Pulses, Regular Rate/Rhythm Breast Exam: Deferred Gastrointestinal: No Organomegaly, Non Tender, No Pulsatile Mass, Normal Bowel Sounds, Soft Genitalia: Deferred Pelvic: Deferred Rectal: Deferred Extremities: Other (Bilateral leg pitting edema up to the mid leg with erytema and warmth. Left leg: There are some blisters and an active pus like secretion on the back part of the lower leg. Tender to the touch. Right leg: some healed ulcers. ) Musculoskeletal : Apperance: Normal Neurologic: Alert, glaze maker II-XII nml as Tested, No Motor Deficits, Normal Affect, Normal Mood, No Sensory Deficits Cerebellar Function: Normal Reflexes: Normal Skin: Dry, Normal Color, Warm Lymphatic: No Adenopathy Was a procedure done? Was a procedure done?: No Differential Diagnosis EXT Differential Diagnosis: Cellulitis, Deep Vein Thrombosis Other Differential Diagnosis #[place] stasis #Peripheral artery disease X-Ray, Labs, Meds, VS Vital Signs Date Time Temp Pulse Resp B/P (MAP) Pulse Ox O2 Delivery O2 Flow Rate FiO2 02/22/25 09:05 69 02/22/25 08:55 98.8 74 20 154/96 94 98.8 Lab Test 02/22/25 10:30 Range/Units White Blood Count 5.4 4.4-10.8 10^3/uL Red Blood Count 4.64 4.5-5.90 10^6/uL Hemoglobin 15.0 13.5-17.5 g/dL Hematocrit 44.7 41.0-53.0 % Mean Corpuscular Volume 96.3 80.0-100.0 fL Mean Corpuscular Hemoglobin 32.4 H 28.0-32.0 pg Mean Corpuscular Hemoglobin Concent 33.7 32.0-36.0 g/dL Red Cell Distribution Width 13.9 11.8-14.3 % Platelet Count 220 140-450 10^3/uL Mean Platelet Volume 6.9 6.9-10.8 fL Neutrophils (%) (Auto) 62.2 37.0-80.0 % Lymphocytes (%) (Auto) 23.6 10.0-50.0 % Monocytes (%) (Auto) 10.1 0.0-12.0 % Eosinophils (%) (Auto) 3.3 0.0-7.0 % Basophils (%) (Auto) 0.8 0.0-2.0 % Neutrophils # (Auto) 3.4 1.6-8.6 10 ^3/uL Lymphocytes # (Auto) 1.3 0.4-5.4 10 ^3/uL Monocytes # (Auto) 0.5 0-1.3 10 ^3/uL Eosinophils # (Auto) 0.2 0-0.8 10 ^3/uL Basophils # (Auto) 0 0-0.2 10 ^3/uL Nucleated Red Blood Cells 0.1 % Sodium Level 141 136-145 mmol/L Potassium Level 3.9 3.5-5.1 mmol/L Chloride Level 105 98-107 mmol/L Carbon Dioxide Level 24 20-31 mmol/L Anion Gap 12 5-15 Blood Urea Nitrogen 9 9-23 mg/dL Creatinine 0.90 0.700-1.30 mg/dL Glomerular Filtration Rate Calc 94 >90 mL/min BUN/Creatinine Ratio 10.0 10.0-20.0 Serum Glucose 112 H 74-106 mg/dL Lactic Acid Level 1.5 0.4-2.0 mmol/L Calcium Level 9.4 8.7-10.4 mg/dL Total Bilirubin 0.5 0.2-1.0 mg/dL Aspartate Amino Transferase (AST) 19 13-40 U/L Alanine Aminotransferase (ALT) 29 7-40 U/L Alkaline Phosphatase 64 46-116 U/L Total Protein 7.3 5.7-8.2 g/dL Albumin 4.6 3.2-4.8 g/dL X-Ray, Labs, Meds, VS Comment 11:15 The patient was reassessed, The patient will be admitted for further assessment and management Time of 1ST Reevaluation: 11:16 Reevaluation 1ST: Unchanged Patient Education/Counseling: Diagnosis, Treatment, Prognosis, Need For Follow Up Family Education/Counseling: No Family Present Sepsis Sepsis Reasesment Focused Exam Orders: Laboratory Tests 02/22/25 10:30: Lactic Acid Level 1.5 Departure 1 Departure Time of Disposition: 12:17 Impression: Primary Impression: Lower extremity cellulitis Disposition: ADMITTED INPATIENT Admit to: Med Surg Condition: Good Comments Goals of care discussed with the patient > 35 min. Discussed plan of care with Dr. Stein Code status: Full code PCP: Dr. Todd Plan discussed with: Patient, the patient agrees with the admission plan. Critical Care Note Critical Care Time?: No Stability Stability form required: No Heart Score Heart Score: Heart Score Response (Comments) Value History N/A 0 EKG N/A 0 Age N/A 0 Risk Factors N/A 0 Troponin N/A 0 Total 0 KALYN ZAPATA RESIDENT Feb 22, 2025 10:19
[2025-02-22 11:19] LABS: Hematocrit 44.7 % (41.0-53.0); Hemoglobin 15.0 g/dL (13.5-17.5); Mean Corpuscular Hemoglobin 32.4 pg (28.0-32.0); Mean Corpuscular Volume 96.3 fL (80.0-100.0); Nucleated Red Blood Cells % 0.1 %
--- NOTE | 2025-02-22 11:28 | DVH ---
Technique: Real-time ultrasound imaging, with color Doppler and compression of the bilateral common femoral vein, femoral vein, greater saphenous vein, and popliteal vein. Indication: R/O DVT Comparison: US BILAT LOWER DVT on DOS: 10/12/24, RT LOWER DVT on DOS: 04/22/21, BI LOWER DVT on DOS: Findings: There is normal compressibility and flow augmentation in all of the imaged deep veins. There are no f illing defects. Impression: No evidence of DVT in the bilateral lower extremities
[2025-02-22 11:32] LABS: Alanine Aminotransferase 29 U/L (7-40); Albumin 4.6 g/dL (3.2-4.8); Alkaline Phosphatase 64 U/L (46-116); Anion Gap 12 (5-15); BUN/Creatinine Ratio 10.0 (10.0-20.0); Bilirubin, Total 0.5 mg/dL (0.2-1.0); Calcium 9.4 mg/dL (8.7-10.4); Carbon Dioxide 24 mmol/L (20-31); Chloride 105 mmol/L (98-107); Potassium 3.9 mmol/L (3.5-5.1); Sodium 141 mmol/L (136-145); Total Protein 7.3 g/dL (5.7-8.2)
[2025-02-22 11:36] LABS: Blood Urea Nitrogen 9 mg/dL (9-23); Glucose 112 mg/dL (74-106)
[2025-02-22] MEDS: VANCOMYCIN 1GM/250ML KIT 250 ML IV ONE (12:18)
[2025-02-22] MEDS: SODIUM CHLORIDE 0.9% 500 ML IV ONE (12:20)
--- NOTE | 2025-02-22 13:39 | DVHHP2 ---
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 Patient reports that this has been ongoing for the last 1 year. He reports that there were small blisters and when he was lying down to sleep it ruptured was draining greenish yellow foul-smelling discharge. Patient reports that he has compliant with his medical appointments and was given Lasix to take. He reports that Dr. Todd is his PCP. Patient reports that his pain is 9/10 burning and constant. He states that there are no triggering or alleviating factors. Patient reports that he currently lives at a shinto house. He also reports that 1 month ago he slipped and fell off his bed and landed on his left hip, denies current pain at this time. Patient denies any recent travels, recent ingestion of spoiled food, recent travels, chest pain, shortness of breath, fever, chills, lightheadedness, weakness, dizziness, abdominal pain, nausea, vomiting, diarrhea, or urinary symptoms. 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 Psych: Anxiety Endocrine: Diabetes Past Medical History BPH Glaucoma Epilepsy Sturge-Beth Syndrome Past Surgical History: Other (Splenectomy) Family History: Other (Both ) Smoke: Quit (Quit) ALCOHOL: none (Quit) Drugs: Marijuana (Quit) Lives: Other Domestic Violence: Neg Review of Systems Skin: Other (Bilateral lower extremity open wounds and draining pus) Allergies: Coded Allergies: NO KNOWN ALLERGIES (Unverified , 01/23/19) Exam Vital Signs Vital Signs Date Time Temp Pulse Resp B/P (MAP) Pulse Ox O2 Delivery O2 Flow Rate FiO2 02/22/25 09:05 69 02/22/25 08:55 98.8 20 154/96 94 98.8 General Appearance: Alert, Oriented X3, Cooperative, No acute distress HEENT: Atraumatic, PERRLA, EOMI, Mucous membr. moist/pink Respiratory: Normal air movement Cardiovascular: Regular rate, Normal S1, Normal S2 Abdominal: Normal bowel sounds, Soft Neuro: Normal gait, Normal speech, Strength at 5/5 X4 ext, Normal tone, Sensation intact Psych/Mental Status: Mental status NL, Mood NL Labs/Xrays Labs Test 02/22/25 10:30 Range/Units White Blood Count 5.4 4.4-10.8 10^3/uL Red Blood Count 4.64 4.5-5.90 10^6/uL Hemoglobin 15.0 13.5-17.5 g/dL Hematocrit 44.7 41.0-53.0 % Mean Corpuscular Volume 96.3 80.0-100.0 fL Mean Corpuscular Hemoglobin 32.4 H 28.0-32.0 pg Mean Corpuscular Hemoglobin Concent 33.7 32.0-36.0 g/dL Red Cell Distribution Width 13.9 11.8-14.3 % Platelet Count 220 140-450 10^3/uL Mean Platelet Volume 6.9 6.9-10.8 fL Neutrophils (%) (Auto) 62.2 37.0-80.0 % Lymphocytes (%) (Auto) 23.6 10.0-50.0 % Monocytes (%) (Auto) 10.1 0.0-12.0 % Eosinophils (%) (Auto) 3.3 0.0-7.0 % Basophils (%) (Auto) 0.8 0.0-2.0 % Neutrophils # (Auto) 3.4 1.6-8.6 10 ^3/uL Lymphocytes # (Auto) 1.3 0.4-5.4 10 ^3/uL Monocytes # (Auto) 0.5 0-1.3 10 ^3/uL Eosinophils # (Auto) 0.2 0-0.8 10 ^3/uL Basophils # (Auto) 0 0-0.2 10 ^3/uL Nucleated Red Blood Cells 0.1 % Sodium Level 141 136-145 mmol/L Potassium Level 3.9 3.5-5.1 mmol/L Chloride Level 105 98-107 mmol/L Carbon Dioxide Level 24 20-31 mmol/L Anion Gap 12 5-15 Blood Urea Nitrogen 9 9-23 mg/dL Creatinine 0.90 0.700-1.30 mg/dL Glomerular Filtration Rate Calc 94 >90 mL/min BUN/Creatinine Ratio 10.0 10.0-20.0 Serum Glucose 112 H 74-106 mg/dL Lactic Acid Level 1.5 0.4-2.0 mmol/L Calcium Level 9.4 8.7-10.4 mg/dL Total Bilirubin 0.5 0.2-1.0 mg/dL Aspartate Amino Transferase (AST) 19 13-40 U/L Alanine Aminotransferase (ALT) 29 7-40 U/L Alkaline Phosphatase 64 46-116 U/L Total Protein 7.3 5.7-8.2 g/dL Albumin 4.6 3.2-4.8 g/dL Technique: Real-time ultrasound imaging, with color Doppler and compression of the bilateral common femoral vein, femoral vein, greater saphenous vein, and popliteal vein. Indication: R/O DVT Comparison: US BILAT LOWER DVT on DOS: 10/12/24, RT LOWER DVT on DOS: 04/22/21, BI LOWER DVT on DOS: 09/29/20 Findings: There is normal compressibility and flow augmentation in all of the imaged deep veins. There are no filling defects. Impression: No evidence of DVT in the bilateral lower extremities SEPSIS Sepsis Screen Date sepsis recognized/suspect: Feb 22, 2025 Time Sepsis recognized/suspect: 0856 Recent Procedure: No On Antibiotic Therapy: No Respiratory Rate >20: No Heart Rate >90: No Temp<36 C (96.8 F) or >38.3 C: No SBP <90 or MAP <65 mmHG: No New Acute Mental Status Change: No Is the patient on CPAP, BIPAP,: No Physician Orders Electrocardigram (02/22/25 10:08) Electrocardigram (02/22/25 12:08) Urinalysis (02/22/25 09:39) Blood Culture (02/22/25 09:39) Wound Culture W/ Gs (02/22/25 09:39) * Wound Consult (02/22/25 ) Bilat Lower Dvt (02/22/25 10:19) Cardiac Diet-2gna,Lofat,Lochol (02/22/25 Lunch) Vital Signs Date Time Temp Pulse Resp B/P (MAP) Pulse Ox O2 Delivery O2 Flow Rate FiO2 02/22/25 09:05 69 02/22/25 08:55 98.8 74 20 154/96 94 98.8 Laboratory Tests Test 02/22/25 10:30 Lactic Acid Level 1.5 mmol/L (0.4-2.0) White Blood Count 5.4 10^3/uL (4.4-10.8) Medications Medications Dose Ordered Sig/Jaclyn Route Start Time Stop Time Status Last Admin Dose Admin Ceftriaxone Sodium 50 ml @ 100 mls/hr ONCE ONCE IV 02/22/25 09:45 02/22/25 10:14 DC 02/22/25 12:19 100 MLS/HR Sodium Chloride 500 ml @ 500 mls/hr Q1H ONCE IV 02/22/25 09:45 02/22/25 10:44 DC 02/22/25 12:20 500 MLS/HR Vancomycin HCl 250 ml @ 250 mls/hr ONCE ONCE IV 02/22/25 09:45 02/22/25 10:44 DC 02/22/25 12:18 250 MLS/HR Assessment/Plan Assessment/Plan Assessment Bilateral lower extremity wounds likely cellulitis versus abscess Obesity History of marijuana use History of alcohol use History of tobacco use History of BPH History of 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 History of hypertension History of hyperlipidemia History of COPD Histoy of CVA with no deficits History of glaucoma History of anxiety History of epilepsy History of diabetes type 2 History of Sturge-beth syndrome Plan Admit to med surge Antiemetics Pain management Hemoglobin A1c ISS and Accu-Cheks Wound consult Wound culture with Gram stain Lactic Blood cultures UA UDS IV antibiotics-clindamycin Vancomycin +ceftriaxone given in ED Bilateral lower extremity venous ultrasound noted CT bilateral lower extremity ordered Diet Home medications reconciled DVT prophylaxis-Lovenox PUD prophylaxis-PPIs Discussed plan of care with patient and nurse Counseled patient on lifestyle modifications, diet, and exercise Counseled patient on continuance of cessation of alcohol, tobacco, and marijuana use 40508 Behavior change smoking greater than 10 minutes about use of other options also gave option of nicotine patch 61802 Preventive counseling healthy eating habits, physical activity, and regular checkups Plan discussed with: Patient Date of Service: Feb 22, 2025 Billing Provider: REBECCA STEIN Common Visit Codes: [id number] INP/OBS CARE (HIGH) Secondary Visit Codes: [id number] COUNSELING IND, [id number] CHNG SMOKING >10MIN REBECCA STEIN Feb 22, 2025 13:39
[2025-02-22] MEDS ORDERED: MORPHINE SULFATE INJ 2 MG/ml SYRG IV PRN (13:45)
[2025-02-22] MEDS ORDERED: HYDROcodone-ACET 5/325MG TAB PO PRN (13:45)
[2025-02-22] MEDS ORDERED: ONDANSETRON HCL 4 MG/2 ML VIAL IV PRN (13:45)
[2025-02-22] MEDS ORDERED: PANT40T PO (14:48)
[2025-02-22] MEDS ORDERED: FENO160T PO (14:48)
[2025-02-22] MEDS ORDERED: NIFE1TAB30 PO (14:48)
[2025-02-22] MEDS ORDERED: DEXTROSE (50%) 50ML SYRG IV PRN (15:00)
[2025-02-22] MEDS ORDERED: MORPHINE SULFATE 4 MG/ML SYR/VIAL IV PRN (15:30)
--- NOTE | 2025-02-22 16:04 | DVH ---
INDICATION: R/O ABSCESS. Pain and swelling. COMPARISON: CT CT L TIB FIB WO CONTRAST on DOS: 02/22/25, XY L KNEE 3V XRAY on DOS: 10/12/24, XY R KNEE 3V XRAY on DOS: 10/12/24, XR KNEE LIMITED BILAT on DOS: 06/26/24, XR KNEE COMPLETE LT on DOS: 06/29/20 TECHNIQUE: CT of the right tibia / fibula was performed without contrast. Volume transverse images we re obtained and reconstructed in multiple planes using bone and soft tissue algorithms. Radiation Dose Information: CT Dose: CTDI volume is 7.84 mGy. Dose-length product is 428.45 mGy*cm FINDINGS: Generalized soft tissue edema and skin thickening diffusely throughout the right lower extremity. No focal fluid collections. No erosive changes to suggest osteomyelitis. No fracture or malalignment. IMPRESSION: Diffuse cellulitis without evidence for abscess or osteomyelitis. All CT scans at this medical facility are performed using dose modulation techniques as appropriate t o a performed exam including the following: Automated exposure control was utilized; Adjustment of th e MA And/or KV according to patient size; And use of iterative reconstruction technique.
--- NOTE | 2025-02-22 16:24 | DVH ---
INDICATION: R/O ABSCESS COMPARISON: CT CT R TIB FIB WO CONTRAST on DOS: 02/22/25, XY L KNEE 3V XRAY on DOS: 10/12/24, XY R KNEE 3V XRAY on DOS: 10/12/24, XR KNEE LIMITED BILAT on DOS: 06/26/24, XR KNEE COMPLETE LT on DOS: 06/29/20 TECHNIQUE: CT of the left tibia / fibula was performed without contrast. Volume transverse images w ere obtained and reconstructed in multiple planes using bone and soft tissue algorithms. Radiation Dose Information: CT Dose: CTDI volume is 7.75 mGy. Dose-length product is 437.36 mGy*cm FINDINGS: Generalized soft tissue edema and skin thickening diffusely throughout the left lower extremity. No f ocal fluid collections. No erosive changes to suggest osteomyelitis. No fracture or malalignment. IMPRESSION: Diffuse cellulitis without evidence for abscess or osteomyelitis. All CT scans at this medical facility are performed using dose modulation techniques as appropriate t o a performed exam including the following: Automated exposure control was utilized; Adjustment of th e MA And/or KV according to patient size; And use of iterative reconstruction technique.
[2025-02-22] MEDS: CLINDAMYCIN 600MG IV 50 ML IV SCH (17:03)
[2025-02-22] MEDS: ACCU-CHEK COMFORT CURVE STRIP VI SCH (17:04)
[2025-02-22] MEDS: InsuLIN REG 1unit/0.01ml Soln (100units/ml) SC SCH (17:07)
[2025-02-22] MEDS ORDERED: PATIENTS OWN MEDICATION (Atorvastatin Calcium (Lipitor) 1 TAB) PO SCH (18:00)
[2025-02-22] MEDS: FUROSEMIDE 40 MG/4 ML VIAL IV SCH (18:42)
[2025-02-22 21:00] VITALS: BP 150/84; PULSE 61; RESP 18; TEMP 98; O2SAT 97
[2025-02-22 23:32] VITALS: BP 162/83; PULSE 57; RESP 19; TEMP 98.2; O2SAT 97
[2025-02-23] VITALS (10 sets, daily range): BP systolic 133–168; BP diastolic 68–94; PULSE 55–66; RESP 17–19; TEMP 97.5–98.1; O2SAT 96–100
[2025-02-23] MEDS: ATORVASTATIN 20 MG TAB PO SCH (00:27)
[2025-02-23 06:52] LABS: Alanine Aminotransferase 28 U/L (7-40); Albumin 4.1 g/dL (3.2-4.8); Alkaline Phosphatase 60 U/L (46-116); Anion Gap 14 (5-15); BUN/Creatinine Ratio 10.8 (10.0-20.0); Blood Urea Nitrogen 10 mg/dL (9-23); Calcium 9.2 mg/dL (8.7-10.4); Carbon Dioxide 24 mmol/L (20-31); Chloride 104 mmol/L (98-107); Potassium 4.2 mmol/L (3.5-5.1); Sodium 142 mmol/L (136-145); Total Protein 6.5 g/dL (5.7-8.2)
[2025-02-23 06:53] LABS: Bilirubin, Total 0.5 mg/dL (0.2-1.0)
[2025-02-23 06:57] LABS: Glucose 123 mg/dL (74-106)
[2025-02-23] MEDS ORDERED: CYANOCOBALAMIN 1000 MCG PO SCH (07:00)
[2025-02-23 08:29] LABS: Hematocrit 41.6 % (41.0-53.0); Hemoglobin 14.2 g/dL (13.5-17.5); Mean Corpuscular Hemoglobin 32.4 pg (28.0-32.0); Mean Corpuscular Volume 94.8 fL (80.0-100.0); Nucleated Red Blood Cells % 0.2 %
[2025-02-23] MEDS: ENOXAPARIN SOD 40 MG/0.4 ML SYRINGE SC SCH (08:50)
[2025-02-23] MEDS: hydroCHLOROthiazide 25 MG TAB PO SCH (08:51)
[2025-02-23] MEDS: CYANOCOBALAMIN 500 MCG TAB PO SCH (09:06)
[2025-02-23] MEDS: ASPirin-EC 81 mg tab PO SCH (09:06)
[2025-02-23] MEDS: PANTOPRAZOLE 40 MG TAB PO SCH (09:06)
[2025-02-23] MEDS: LISINOPRIL 20 MG TAB PO SCH (09:07)
[2025-02-23] MEDS: Fenofibrate 160 MG TAB PO SCH (09:39)
[2025-02-23] MEDS ORDERED: PATIENTS OWN MEDICATION (Hydrochlorothiazide 1 CAP) PO SCH (10:00)
[2025-02-23] MEDS ORDERED: PATIENTS OWN MEDICATION (Amlodipine Besylate 1 TAB) PO SCH (10:00)
--- NOTE | 2025-02-23 17:00 | DVHPN2 ---
Subjective Patient is complaining of bilateral lower extremity pain Reviewed: Care Plan Changes from previous H/P or p: No Changes Skin: Other (Bilateral lower extremity open wounds and draining pus) Objective Vitals Vital Signs Date Time Temp Pulse Resp B/P (MAP) Pulse Ox O2 Delivery O2 Flow Rate FiO2 02/23/25 12:54 97.7 65 17 146/78 (100) 96 97.7 02/23/25 08:00 Room Air* 0 21 Intake/Output Intake and Output 02/23/25 07:00 Intake Total 100 ml Balance 100 ml Intake Oral 100 ml # Voids 1 Exam HEENT pupils are reactive Neck is supple CV is S1-S2 regular rate and rhythm Respiratory diminished breath sounds bases GI positive bowel sound 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 no 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 Medications Current Medications Medications Dose Ordered Sig/Jaclyn Route Start Time Stop Time Status Last Admin Dose Admin Clindamycin Phosphate 50 ml @ 50 mls/hr Q8HR IV 02/22/25 14:00 02/23/25 06:14 50 MLS/HR Acetaminophen/ Hydrocodone Bitart 1 tab Q4HP PRN PO 02/22/25 13:45 Ondansetron HCl 4 mg Q4HP PRN IV 02/22/25 13:45 Enoxaparin Sodium 40 mg DAILY SC 02/23/25 10:00 02/23/25 08:50 40 MG Acetaminophen 650 mg Q6HP PRN PO 02/22/25 13:45 Morphine Sulfate 2 mg Q4HPRN PRN IV 02/22/25 13:45 UNV Aspirin 81 mg DAILY PO 02/23/25 10:00 02/23/25 09:06 81 MG Lisinopril 20 mg DAILY PO 02/23/25 10:00 02/23/25 09:07 20 MG Patient Own Medication 1 tab DAILY PO 02/23/25 10:00 UNV Patient Own Medication 1 tab QPM PO 02/22/25 18:00 UNV Patient Own Medication 1,000 mcg QAM PO 02/23/25 07:00 UNV Patient Own Medication 1 cap DAILY PO 02/23/25 10:00 UNV Pantoprazole Sodium 40 mg DAILY PO 02/23/25 10:00 02/23/25 09:06 40 MG Patient Own Medication 1 tab DAILY PO 02/23/25 10:00 Nifedipine 60 mg DAILY PO 02/23/25 10:00 02/23/25 08:52 60 MG Furosemide 40 mg DAILY IV 02/22/25 15:00 02/23/25 08:49 40 MG Diagnostic Test (Pha) 1 strip ACHS 02/22/25 17:00 02/23/25 06:28 1 STRIP Insulin Human Regular ACHS SC 02/22/25 17:00 02/23/25 13:14 2 UNITS Dextrose 50 ml UD PRN IV 02/22/25 15:00 Morphine Sulfate 2 mg Q4HPRN PRN IV 02/22/25 15:30 Amlodipine Besylate 10 mg DAILY PO 02/23/25 10:00 02/23/25 09:05 10 MG Atorvastatin Calcium 40 mg HS PO 02/22/25 22:00 02/23/25 00:27 40 MG Cyanocobalamin 1,000 mcg DAILY PO 02/23/25 10:00 02/23/25 09:06 1,000 MCG Hydrochlorothiazide 12.5 mg DAILY PO 02/23/25 10:00 02/23/25 08:51 12.5 MG Laboratory Results Laboratory Tests 02/23/25 05:50 02/23/25 08:13 Chemistry Test 02/23/25 05:50 Albumin 4.1 g/dL (3.2-4.8) Calcium Level 9.2 mg/dL (8.7-10.4) Total Protein 6.5 g/dL (5.7-8.2) LFT Test 02/23/25 05:50 Alanine Aminotransferase (ALT) 28 U/L (7-40) Alkaline Phosphatase 60 U/L (46-116) Aspartate Amino Transferase (AST) 20 U/L (13-40) Total Bilirubin 0.5 mg/dL (0.2-1.0) Microbiology Microbiology Date/Time Source Procedure Growth Status 02/22/25 10:30 Blood Blood Culture - Preliminary NO GROWTH AFTER 24 HOURS OF INCUBATION. 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 Bilateral lower extremity cellulitis 2. Bilateral lower extremity pain 3. Sturge-Mullen syndrome 4. Hypertension 5. Dyslipidemia 6. Diabetes mellitus type 2 -IV antibiotics, pain meds, plan of care discussed with the patient who understand and agreeable to plan. Plan discussed with: Patient Date of Service: Feb 23, 2025 Billing Provider: VIOLET ZIMMERMAN MD Common Visit Codes: [id number] INP/OBS CARE(HIGH) VIOLET ZIMMERMAN MD Feb 23, 2025 17:00
[2025-02-23] MEDS: ACETAMINOPHEN 325 MG TAB PO PRN (17:04)
[2025-02-23 21:52] LABS: Urine Protein, UAD Negative (Negative)
[2025-02-23 22:05] LABS: Amphetamine Screen, Urine Neg (NEGATIVE); Barbiturate Scree,Urine Neg (NEGATIVE); Benzodiazephine Screen, Urine Neg (NEGATIVE); Cannabinoid Screen, Urine Neg (NEGATIVE); Cocaine Screen, Urine Neg (NEGATIVE); Opiate Scree,Urine Neg (NEGATIVE); Phencyclidine Screen, Urine Neg (NEGATIVE)
[2025-02-24] VITALS (8 sets, daily range): BP systolic 123–152; BP diastolic 64–78; PULSE 56–70; RESP 16–18; TEMP 97.5–98.2; O2SAT 93–99
--- NOTE | 2025-02-24 17:36 | DVHPN2 ---
Subjective Patient is complaining of bilateral lower extremity pain Reviewed: Care Plan Changes from previous H/P or p: No Changes Skin: Other (Bilateral lower extremity open wounds and draining pus) Objective Vitals Vital Signs Date Time Temp Pulse Resp B/P (MAP) Pulse Ox O2 Delivery O2 Flow Rate FiO2 02/24/25 13:00 97.5 61 17 123/65 (84) 96 97.5 02/24/25 08:00 Room Air* 0 21 Intake/Output Intake and Output 02/24/25 07:00 Intake Total 990 ml Output Total 975 ml Balance 15 ml Intake Oral 940 ml IV Total 50 ml Output Urine Total 975 ml # Voids 6 Exam HEENT pupils are reactive Neck is supple CV is S1-S2 regular rate and rhythm Respiratory diminished breath sounds bases GI positive bowel sound 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 Medications Current Medications Medications Dose Ordered Sig/Jaclyn Route Start Time Stop Time Status Last Admin Dose Admin Clindamycin Phosphate 50 ml @ 50 mls/hr Q8HR IV 02/22/25 14:00 02/24/25 14:13 50 MLS/HR Acetaminophen/ Hydrocodone Bitart 1 tab Q4HP PRN PO 02/22/25 13:45 Ondansetron HCl 4 mg Q4HP PRN IV 02/22/25 13:45 Enoxaparin Sodium 40 mg DAILY SC 02/23/25 10:00 02/24/25 08:59 40 MG Acetaminophen 650 mg Q6HP PRN PO 02/22/25 13:45 02/23/25 17:04 650 MG Morphine Sulfate 2 mg Q4HPRN PRN IV 02/22/25 13:45 UNV Aspirin 81 mg DAILY PO 02/23/25 10:00 02/24/25 08:57 81 MG Lisinopril 20 mg DAILY PO 02/23/25 10:00 02/24/25 08:58 20 MG Patient Own Medication 1 tab DAILY PO 02/23/25 10:00 UNV Patient Own Medication 1 tab QPM PO 02/22/25 18:00 UNV Patient Own Medication 1,000 mcg QAM PO 02/23/25 07:00 UNV Patient Own Medication 1 cap DAILY PO 02/23/25 10:00 UNV Pantoprazole Sodium 40 mg DAILY PO 02/23/25 10:00 02/24/25 08:59 40 MG Patient Own Medication 1 tab DAILY PO 02/23/25 10:00 Nifedipine 60 mg DAILY PO 02/23/25 10:00 02/24/25 08:57 60 MG Furosemide 40 mg DAILY IV 02/22/25 15:00 02/24/25 09:22 40 MG Diagnostic Test (Pha) 1 strip ACHS 02/22/25 17:00 02/24/25 06:17 1 STRIP Insulin Human Regular ACHS SC 02/22/25 17:00 02/24/25 06:15 2 UNITS Dextrose 50 ml UD PRN IV 02/22/25 15:00 Morphine Sulfate 2 mg Q4HPRN PRN IV 02/22/25 15:30 Amlodipine Besylate 10 mg DAILY PO 02/23/25 10:00 02/24/25 08:58 10 MG Atorvastatin Calcium 40 mg HS PO 02/22/25 22:00 02/23/25 21:20 40 MG Cyanocobalamin 1,000 mcg DAILY PO 02/23/25 10:00 02/24/25 08:58 1,000 MCG Hydrochlorothiazide 12.5 mg DAILY PO 02/23/25 10:00 02/24/25 09:00 12.5 MG Hydralazine HCl 10 mg Q4HPRN PRN IV 02/24/25 17:30 Laboratory Results Laboratory Tests 02/23/25 05:50 02/23/25 08:13 Urinalysis Test 02/23/25 21:00 Urine Color Light-yellow (Yellow) Urine Clarity Clear (Clear) Urine pH 5.5 (5.0-9.0) Urine Specific [place] 1.014 (1.001-1.035) Urine Protein Negative (Negative) Urine Ketones Negative (Negative) Urine Blood Negative /uL (Negative) Urine Nitrite Negative (Negative) Urine Bilirubin Negative (Negative) Urine Urobilinogen Normal mg/dL (Negative) Urine Leukocyte Esterase Negative /uL (Negative) Urine RBC 1 /hpf (0 - 3) Urine Microscopic WBC 1 /HPF (0-3) Urine Squamous Epithelial Cells None seen /hpf (<5) Urine Bacteria None seen /hpf (None Seen) Urine Glucose Normal mg/dL (Normal) Microbiology Microbiology Date/Time Source Procedure Growth Status 02/23/25 11:53 Leg Gram Stain - Final Resulted 02/23/25 11:53 Leg Wound Culture - Preliminary Resulted 02/22/25 10:30 Blood Blood Culture - Preliminary NO GROWTH AFTER 48 HOURS OF INCUBATION. 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 Bilateral lower extremity cellulitis 2. Bilateral lower extremity pain 3. Sturge-Mullen syndrome 4. Hypertension 5. Dyslipidemia 6. Diabetes mellitus type 2 -IV antibiotics, pain meds, plan of care discussed with the patient who understand and agreeable to plan. Plan discussed with: Patient My Orders Orders - VIOLET ZIMMERMAN MD Procedure Category Date Status Time Hydralazine Injection PHA 02/24/25 In Process (Apresoline Inject 17:30 Date of Service: Feb 24, 2025 Billing Provider: VIOLET ZIMMERMAN MD Common Visit Codes: [id number] INP/OBS CARE(HIGH) VIOLET ZIMMERMAN MD Feb 24, 2025 17:36
[2025-02-24] MEDS: hydrALAZINE HCL 20 MG/ML VL IV PRN (18:16)
[2025-02-25] VITALS (8 sets, daily range): BP systolic 108–132; BP diastolic 54–75; PULSE 55–79; RESP 16–18; TEMP 97.5–97.9; O2SAT 94–98
--- NOTE | 2025-02-25 17:11 | DVHPN2 ---
Subjective Patient is complaining of bilateral lower extremity pain Reviewed: Care Plan Changes from previous H/P or p: No Changes Skin: Other (Bilateral lower extremity open wounds and draining pus) Objective Vitals Vital Signs Date Time Temp Pulse Resp B/P (MAP) Pulse Ox O2 Delivery O2 Flow Rate FiO2 02/25/25 13:00 97.5 65 18 118/65 (82) 97 97.5 02/25/25 08:00 Room Air* 0 21 Intake/Output Intake and Output 02/25/25 07:00 Intake Total 1550 ml Output Total 775 ml Balance 775 ml Intake Oral 1500 ml IV Total 50 ml Output Urine Total 775 ml # Voids 5 # Bowel Movements 1 Exam HEENT pupils are reactive Neck is supple CV is S1-S2 regular rate and rhythm Respiratory diminished breath sounds bases GI positive bowel sound 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 no 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 Medications Current Medications Medications Dose Ordered Sig/Jaclyn Route Start Time Stop Time Status Last Admin Dose Admin Clindamycin Phosphate 50 ml @ 50 mls/hr Q8HR IV 02/22/25 14:00 02/25/25 14:16 50 MLS/HR Acetaminophen/ Hydrocodone Bitart 1 tab Q4HP PRN PO 02/22/25 13:45 Ondansetron HCl 4 mg Q4HP PRN IV 02/22/25 13:45 Enoxaparin Sodium 40 mg DAILY SC 02/23/25 10:00 02/25/25 08:48 40 MG Acetaminophen 650 mg Q6HP PRN PO 02/22/25 13:45 02/23/25 17:04 650 MG Morphine Sulfate 2 mg Q4HPRN PRN IV 02/22/25 13:45 UNV Aspirin 81 mg DAILY PO 02/23/25 10:00 02/25/25 08:47 81 MG Lisinopril 20 mg DAILY PO 02/23/25 10:00 02/25/25 08:47 20 MG Patient Own Medication 1 tab DAILY PO 02/23/25 10:00 UNV Patient Own Medication 1 tab QPM PO 02/22/25 18:00 UNV Patient Own Medication 1,000 mcg QAM PO 02/23/25 07:00 UNV Patient Own Medication 1 cap DAILY PO 02/23/25 10:00 UNV Pantoprazole Sodium 40 mg DAILY PO 02/23/25 10:00 02/25/25 08:47 40 MG Patient Own Medication 1 tab DAILY PO 02/23/25 10:00 Nifedipine 60 mg DAILY PO 02/23/25 10:00 02/25/25 08:45 60 MG Furosemide 40 mg DAILY IV 02/22/25 15:00 02/25/25 09:16 40 MG Diagnostic Test (Pha) 1 strip ACHS 02/22/25 17:00 02/25/25 06:07 1 STRIP Insulin Human Regular ACHS SC 02/22/25 17:00 02/25/25 12:05 2 UNITS Dextrose 50 ml UD PRN IV 02/22/25 15:00 Morphine Sulfate 2 mg Q4HPRN PRN IV 02/22/25 15:30 Amlodipine Besylate 10 mg DAILY PO 02/23/25 10:00 02/25/25 08:46 10 MG Atorvastatin Calcium 40 mg HS PO 02/22/25 22:00 02/24/25 21:01 40 MG Cyanocobalamin 1,000 mcg DAILY PO 02/23/25 10:00 02/25/25 08:46 1,000 MCG Hydrochlorothiazide 12.5 mg DAILY PO 02/23/25 10:00 02/25/25 08:48 12.5 MG Hydralazine HCl 10 mg Q4HPRN PRN IV 02/24/25 17:30 02/24/25 18:16 10 MG Laboratory Results Laboratory Tests 02/23/25 05:50 02/23/25 08:13 Urinalysis Test 02/23/25 21:00 Urine Color Light-yellow (Yellow) Urine Clarity Clear (Clear) Urine pH 5.5 (5.0-9.0) Urine Specific [place] 1.014 (1.001-1.035) Urine Protein Negative (Negative) Urine Ketones Negative (Negative) Urine Blood Negative /uL (Negative) Urine Nitrite Negative (Negative) Urine Bilirubin Negative (Negative) Urine Urobilinogen Normal mg/dL (Negative) Urine Leukocyte Esterase Negative /uL (Negative) Urine RBC 1 /hpf (0 - 3) Urine Microscopic WBC 1 /HPF (0-3) Urine Squamous Epithelial Cells None seen /hpf (<5) Urine Bacteria None seen /hpf (None Seen) Urine Glucose Normal mg/dL (Normal) Microbiology Microbiology Date/Time Source Procedure Growth Status 02/23/25 11:53 Leg Gram Stain - Final Complete 02/23/25 11:53 Wound Culture - Final Staphylococcus aureus Streptococcus Group B Complete 02/22/25 10:30 Blood Blood Culture - Preliminary NO GROWTH AFTER 72 HOURS OF INCUBATION. 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 Bilateral lower extremity cellulitis 2. Bilateral lower extremity pain 3. Sturge-Mullen syndrome 4. Hypertension 5. Dyslipidemia 6. Diabetes mellitus type 2 -IV antibiotics, pain meds, plan of care discussed with the patient who understand and agreeable to plan. -discharge plan likely in next 24 hours. Plan discussed with: Patient My Orders Orders - VIOLET ZIMMERMAN MD Procedure Category Date Status Time Hydralazine Injection PHA 02/24/25 In Process (Apresoline Inject 17:30 Basic Metabolic Panel LAB 02/26/25 Verified 06:00 Date of Service: Feb 25, 2025 Billing Provider: VIOLET ZIMMERMAN MD Common Visit Codes: [id number] INP/OBS CARE(HIGH) VIOLET ZIMMERMAN MD Feb 25, 2025 17:11
[2025-02-26 01:00] VITALS: BP 142/72; PULSE 62; RESP 18; TEMP 97.8; O2SAT 96
[2025-02-26 05:00] VITALS: BP 139/72; PULSE 65; RESP 16; TEMP 97.5; O2SAT 95
[2025-02-26 08:00] VITALS: PULSE 65; RESP 16; O2SAT 98
[2025-02-26 08:41] VITALS: BP 137/74; PULSE 71; RESP 18; TEMP 98.3; O2SAT 98
[2025-02-26 11:20] LABS: Hematocrit 44.8 % (41.0-53.0); Hemoglobin 15.1 g/dL (13.5-17.5); Mean Corpuscular Hemoglobin 32.0 pg (28.0-32.0); Mean Corpuscular Volume 94.7 fL (80.0-100.0); Nucleated Red Blood Cells % 0.2 %
[2025-02-26 11:30] LABS: Anion Gap 11 (5-15)
[2025-02-26 11:37] LABS: BUN/Creatinine Ratio 13.1 (10.0-20.0)
[2025-02-26 11:38] LABS: Blood Urea Nitrogen 13 mg/dL (9-23); Calcium 9.2 mg/dL (8.7-10.4); Carbon Dioxide 25 mmol/L (20-31); Chloride 103 mmol/L (98-107); Glucose 162 mg/dL (74-106); Magnesium 2.2 mg/dL (1.6-2.6); Potassium 3.8 mmol/L (3.5-5.1); Sodium 139 mmol/L (136-145)
[2025-02-26 13:00] VITALS: BP 107/67; PULSE 85; RESP 18; TEMP 97.5; O2SAT 98
[2025-02-26] MEDS ORDERED: CLIN1CAP70 PO (15:59)
--- NOTE | 2025-02-26 16:05 | DVHDS2 ---
Discharge Summary Date of Admission Feb 22, 2025 at 13:38 Date of Discharge: Feb 26, 2025 Labs/Diagnostic Data: Laboratory Results Test 02/26/25 11:42 02/26/25 10:34 02/23/25 21:00 02/23/25 05:50 POC Glucose 148 mg/dl (70-106) White Blood Count 5.2 10^3/uL (4.4-10.8) Red Blood Count 4.73 10^6/uL (4.5-5.90) Hemoglobin 15.1 g/dL (13.5-17.5) Hematocrit 44.8 % (41.0-53.0) Mean Corpuscular Volume 94.7 fL (80.0-100.0) Mean Corpuscular Hemoglobin 32.0 pg (28.0-32.0) Mean Corpuscular Hemoglobin Concent 33.8 g/dL (32.0-36.0) Red Cell Distribution Width 14.0 % (11.8-14.3) Platelet Count 245 10^3/uL (140-450) Mean Platelet Volume 6.9 fL (6.9-10.8) Neutrophils (%) (Auto) 56.7 % (37.0-80.0) Lymphocytes (%) (Auto) 26.7 % (10.0-50.0) Monocytes (%) (Auto) 12.1 % (0.0-12.0) Eosinophils (%) (Auto) 3.3 % (0.0-7.0) Basophils (%) (Auto) 1.2 % (0.0-2.0) Neutrophils # (Auto) 2.9 10 ^3/uL (1.6-8.6) Lymphocytes # (Auto) 1.4 10 ^3/uL (0.4-5.4) Monocytes # (Auto) 0.6 10 ^3/uL (0-1.3) Eosinophils # (Auto) 0.2 10 ^3/uL (0-0.8) Basophils # (Auto) 0.1 10 ^3/uL (0-0.2) Nucleated Red Blood Cells 0.2 % Sodium Level 139 mmol/L (136-145) Potassium Level 3.8 mmol/L (3.5-5.1) Chloride Level 103 mmol/L (98-107) Carbon Dioxide Level 25 mmol/L (20-31) Anion Gap 11 (5-15) Blood Urea Nitrogen 13 mg/dL (9-23) Creatinine 0.99 mg/dL (0.700-1.30) Glomerular Filtration Rate Calc 84 mL/min (>90) BUN/Creatinine Ratio 13.1 (10.0-20.0) Serum Glucose 162 mg/dL (74-106) Calcium Level 9.2 mg/dL (8.7-10.4) Magnesium Level 2.2 mg/dL (1.6-2.6) Urine Color Light-yellow (Yellow) Urine Clarity Clear (Clear) Urine pH 5.5 (5.0-9.0) Urine Specific [place] 1.014 (1.001-1.035) Urine Protein Negative (Negative) Urine Ketones Negative (Negative) Urine Blood Negative /uL (Negative) Urine Nitrite Negative (Negative) Urine Bilirubin Negative (Negative) Urine Urobilinogen Normal mg/dL (Negative) Urine Leukocyte Esterase Negative /uL (Negative) Urine RBC 1 /hpf (0 - 3) Urine Microscopic WBC 1 /HPF (0-3) Urine Squamous Epithelial Cells None seen /hpf (<5) Urine Bacteria None seen /hpf (None Seen) Urine Glucose Normal mg/dL (Normal) Urine Opiates Screen Neg (NEGATIVE) Urine Fentanyl Screen Neg (NEGATIVE) Urine Barbiturates Screen Neg (NEGATIVE) Urine Phencyclidine Screen Neg (NEGATIVE) Urine Amphetamines Screen Neg (NEGATIVE) Urine Benzodiazepines Screen Neg (NEGATIVE) Urine Cocaine Screen Neg (NEGATIVE) Urine Cannabinoids Screen Neg (NEGATIVE) Total Bilirubin 0.5 mg/dL (0.2-1.0) Aspartate Amino Transferase (AST) 20 U/L (13-40) Alanine Aminotransferase (ALT) 28 U/L (7-40) Alkaline Phosphatase 60 U/L (46-116) Total Protein 6.5 g/dL (5.7-8.2) Albumin 4.1 g/dL (3.2-4.8) Test 02/22/25 10:30 Hemoglobin A1c 6.5 % A1C (<5.7) Lactic Acid Level 1.5 mmol/L (0.4-2.0) Other Laboratory Tests 02/26/25 10:34 Brief Hx & Hospital Course: 64-year-old male with a known history of diabetes mellitus type 2, hypertension, dyslipidemia, COPD, Sturge-Mullen syndrome presented to the hospital with a bilateral lower extremity pain and swelling found to have bilateral lower extremity cellulitis. Patient was eventually admitted. Patient was started on IV antibiotics. Patient was given IV clindamycin. Patient is currently being discharged under stable condition with the p.o. antibiotics clindamycin 300 mg t.i.d. for five more days. Please return to ER if there is any worsening diarrhea or any concern. Condition at Discharge: Stable Final Diagnosis/Problems List 64-year-old male with a known history of diabetes mellitus type 2, hypertension, dyslipidemia, COPD, Sturge-Mullen syndrome presented to the hospital with a bilateral lower extremity pain and swelling found to have 1. Bilateral lower extremity cellulitis 2. Bilateral lower extremity pain 3. Sturge-Mullen syndrome 4. Hypertension 5. Dyslipidemia 6. Diabetes mellitus type 2 Discharge Disposition: Home SNF Discharge Will this Physician continue t: No Discharge Instruct/Medications Diet: Cardiac 2g Na,low cholest Diet comment: 1999 ADA diet Activity: No Restrictions, As Tolerated Follow Up/Referral: Please follow up with the PCP in 1-2 Medications: Clindamycin 300 mg t.i.d. for five more days. New Medications: Clindamycin Hcl (Clindamycin Hcl) 300 Mg Cap 1 CAP PO TID PRN for 5 Days, #15 CAP Continued Medications: Amlodipine Besylate (Amlodipine Besylate) 10 Mg Tab 1 TAB PO DAILY for 30 Days, #30 TAB 5 Refills Aspirin (Aspirin Low Dose) 81 Mg Tab 81 MG PO DAILY for 30 Days, #30 TAB Atorvastatin Calcium (Lipitor) 40 Mg Tab 1 TAB PO QPM, #30 TAB 1 Refill Cefpodoxime Proxetil (Cefpodoxime Proxetil) 200 Mg Tab 1 TAB PO BID for 5 Days, #10 TAB Cyanocobalamin (B-12) 1,000 Mcg Cap 1000 MCG PO QAM for 30 Days, #30 CAP Fenofibrate (Fenofibrate) 160 Mg Tab 1 TAB PO DAILY Hydrochlorothiazide (Hydrochlorothiazide) 12.5 Mg Cap 1 CAP PO DAILY for 30 Days, #30 CAP 5 Refills Lisinopril (Lisinopril) 20 Mg Tab 1 TAB PO DAILY for 30 Days, #30 TAB 5 Refills Metformin Hydrochloride (Metformin Hcl) 500 Mg Tab 1 TAB PO BID Nifedipine (Nifedipine Er) 60 Mg Tab 1 TAB PO Pantoprazole Sodium Sesquihydr (Pantoprazole Sodium) 40 Mg Tab 1 TAB PO DAILY Scheduled Amlodipine Besylate (Amlodipine Besylate), 1 TAB PO DAILY Aspirin (Aspirin Low Dose), 81 MG PO DAILY Atorvastatin Calcium (Lipitor), 1 TAB PO QPM Cefpodoxime Proxetil (Cefpodoxime Proxetil), 1 TAB PO BID Cyanocobalamin (B-12), 1,000 MCG PO QAM Fenofibrate (Fenofibrate), 1 TAB PO DAILY, (Reported) Hydrochlorothiazide (Hydrochlorothiazide), 1 CAP PO DAILY Lisinopril (Lisinopril), 1 TAB PO DAILY Metformin Hydrochloride (Metformin Hcl), 1 TAB PO BID, (Reported) Pantoprazole Sodium Sesquihydr (Pantoprazole Sodium), 1 TAB PO DAILY, (Reported) Scheduled PRN Clindamycin Hcl (Clindamycin Hcl), 1 CAP PO TID PRN Miscellaneous Medications Nifedipine (Nifedipine Er), 1 TAB PO, (Reported) Discharge Statement: "Patient was advised to return to the ER or call 911 if any headaches, dizziness, shortness of breath, chest pain, abdominal pain, bleeding, fevers, or worsening of medical condition. Patient was counseled about treatment plan, medications, possible side effects, patientverbalized understanding. All questions were answered to the best of my ability. This discharge took greater then 30 minutes in planning, reviewing documentation, counseling the patient, and discussing with other team members." ASSESSMENT ASSESSMENT Assessment 64-year-old male with a known history of diabetes mellitus type 2, hypertension, dyslipidemia, COPD, Sturge-Mullen syndrome presented to the hospital with a bilateral lower extremity pain and swelling found to have 1. Bilateral lower extremity cellulitis 2. Bilateral lower extremity pain 3. Sturge-Mullen syndrome 4. Hypertension 5. Dyslipidemia 6. Diabetes mellitus type 2 Date of Service: Feb 26, 2025 Billing Provider: VIOLET ZIMMERMAN MD Common Visit Codes: [id number] DISCH DAY >30min VIOLET ZIMMERMAN MD Feb 26, 2025 16:05
[2025-02-26 17:07] VITALS: BP 123/72; PULSE 71; RESP 18; TEMP 97.7; O2SAT 96
== END 2025-02-26 19:17 | disposition home health service (06) | DRG 603 ==
LOC: ER 08:53 → OVERFLOW 13:38 → CENTRAL 23:29
PROVIDERS: ADMIT Internal Medicine; ATTEND Internal Medicine
DX: L03.115 Cellulitis of right lower limb (principal); Q85.89 Other phakomatoses, not elsewhere classified; Z68.41 Body mass index [BMI] 40.0-44.9, adult; L03.116 Cellulitis of left lower limb; N40.0 Benign prostatic hyperplasia without lower urinary tract symptoms; J44.9 Chronic obstructive pulmonary disease, unspecified; I10 Essential (primary) hypertension; G40.909 Epilepsy, unspecified, not intractable, without status epilepticus; E11.9 Type 2 diabetes mellitus without complications; F41.9 Anxiety disorder, unspecified; E66.9 Obesity, unspecified; E78.5 Hyperlipidemia, unspecified; Z86.73 Personal history of transient ischemic attack (TIA), and cerebral infarction without residual deficits; Z83.3 Family history of diabetes mellitus; Z87.891 Personal history of nicotine dependence; Z90.81 Acquired absence of spleen
CPT/HCPCS: 36415; 73700; 80048; 80053; 80307; 81001; 82962; 83036; 83605; 83735; 85025; 87040; 87077; 87081; 87186; 87205; 93005; 93970; 96365; 96372; G0378; J1815; J3490

== ENCOUNTER → 2025-03-07 | Outpatient (CLI) | payer OTHER, MEDICAID ==
[~2025-03-07] MED LIST changes: +CLIN1CAP70 PO; +FENO160T PO; +NIFE1TAB30 PO; +PANT40T PO
[2025-03-07 12:07] LABS: Alanine Aminotransferase 28 U/L (7-40); Alkaline Phosphatase 59 U/L (46-116); Anion Gap 12 (5-15); Calcium 9.6 mg/dL (8.7-10.4); Carbon Dioxide 27 mmol/L (20-31); Chloride 102 mmol/L (98-107); Potassium 4.5 mmol/L (3.5-5.1); Sodium 141 mmol/L (136-145)
[2025-03-07 12:08] LABS: BUN/Creatinine Ratio 19.4 (10.0-20.0)
[2025-03-07 12:09] LABS: Albumin 4.5 g/dL (3.2-4.8); Cholesterol 175 mg/dL (< 200)
[2025-03-07 12:14] LABS: Total Protein 7.0 g/dL (5.7-8.2)
[2025-03-07 12:15] LABS: Bilirubin, Total 0.3 mg/dL (0.2-1.0); Blood Urea Nitrogen 24 mg/dL (9-23); Glucose 143 mg/dL (74-106); HDL Cholesterol 35 mg/dL (40-59); Triglycerides 439 mg/dL (< 150)
== END | disposition home or self-care (01) ==
LOC: LAB 07:13
PROVIDERS: ATTEND Internal Medicine
DX: E11.9 Type 2 diabetes mellitus without complications (principal); E78.5 Hyperlipidemia, unspecified
CPT/HCPCS: 36415; 80053; 80061; 83036

== ENCOUNTER 2025-03-10 14:37 | Inpatient (IN) | payer OTHER, MEDICAID ==
[~2025-03-10] VITALS: Ht 180.3 cm; Wt 129.1 kg
--- NOTE | 2025-03-10 14:58 | ED.PDOC ---
History of Present Illness HPI Comments 64 y/o obese M is BIBA from [facility] facility for c/c of generalized weakness, fatigue, and bilateral leg swelling. Per EMS personnel report, patient reports on ongoing symptoms following previous hospital admission for bilateral lower extremity cellulitis. Significant history of anxiety, COPD, CVA, DM II, HLD, HTN, seizures, and Sturge-Mullen syndrome. He endorses on compliancy with his medications, with exception of the antibiotics for his cellulitis. Denies any chest pain, shortness of breath, or further associated symptoms. Time Seen by MD: 14:30 Primary Care Provider: DEMI Reviewed Notes: Nurses Notes, Cloth Examiner Notes, Medications, Allergies Allergies: Coded Allergies: NO KNOWN ALLERGIES (Unverified , 01/23/19) Home Meds Active Scripts Clindamycin Hcl (Clindamycin Hcl) 300 Mg Cap, 1 CAP PO TID PRN for 5 Days, #15 CAP Prov:VIOLET ZIMMERMAN MD 02/26/25 Hydrochlorothiazide (Hydrochlorothiazide) 12.5 Mg Cap, 1 CAP PO DAILY for 30 Days, #30 CAP 5 Refills Prov:MONIKA DERAS RESIDENT 08/25/24 Cefpodoxime Proxetil (Cefpodoxime Proxetil) 200 Mg Tab, 1 TAB PO BID for 5 Days, #10 TAB Prov:MONIKA DERAS RESIDENT 08/25/24 Amlodipine Besylate (Amlodipine Besylate) 10 Mg Tab, 1 TAB PO DAILY for 30 Days, #30 TAB 5 Refills Prov:MONIKA DERAS RESIDENT 08/25/24 Lisinopril (Lisinopril) 20 Mg Tab, 1 TAB PO DAILY for 30 Days, #30 TAB 5 Refills Prov:MONIKA DERAS RESIDENT 08/25/24 Cyanocobalamin (B-12) 1,000 Mcg Cap, 1000 MCG PO QAM for 30 Days, #30 CAP Prov:SKYLER MATHEWS MD 02/10/24 Atorvastatin Calcium (Lipitor) 40 Mg Tab, 1 TAB PO QPM, #30 TAB 1 Refill Prov:SKYLER MATHEWS MD 02/10/24 Aspirin (Aspirin Low Dose) 81 Mg Tab, 81 MG PO DAILY for 30 Days, #30 TAB Prov:SKYLER MATHEWS MD 02/10/24 Reported Medications Nifedipine (Nifedipine Er) 60 Mg Tab, 1 TAB PO 02/22/25 Pantoprazole Sodium Sesquihydr (Pantoprazole Sodium) 40 Mg Tab, 1 TAB PO DAILY 02/22/25 Fenofibrate (Fenofibrate) 160 Mg Tab, 1 TAB PO DAILY 02/22/25 Metformin Hydrochloride (Metformin Hcl) 500 Mg Tab, 1 TAB PO BID 08/21/24 Information Source: Patient, Emergency Med Personnel Mode of Arrival: Ambulatory Severity: Moderate Timing: Hours Duration: Since onset Prehospital treatment: None Past Medical History PAST MEDICAL HISTORY: Anxiety, COPD, CVA, DM (type II ), High Lipids, HTN, Seizures, TIA Past Medical History (Other): Sturge-Mullen syndrome Bilateral lower extremity cellulitis Surgical History: Denies all surgeries Family History Family History: No family hx of Cancer, No family hx of Heart radha, Family hx of DM Social History Smoker: Quit Greater Than 1 Year Alcohol: Occasionally Drugs: Marijuana Lives In: Home All Other Systems: Reviewed and Negative (Comprehensive review of systems are negative unless stated in HPI) Physical Exam General Appearance: Moderate Distress HEENT: Normal ENT Inspection, Pharynx Normal, TMs Normal Neck: Full Range of Motion, Non-Tender, Normal, Normal Inspection Respiratory: Chest Non-Tender, Lungs Clear, No Accessory Muscle Use, No Respiratory Distress, Normal Breath Sounds Cardiovascular: No Edema, No JVD, No Murmur, No Gallop, Normal Peripheral Pulses, Regular Rate/Rhythm Breast Exam: Deferred Gastrointestinal: No Organomegaly, Non Tender, No Pulsatile Mass, Normal Bowel Sounds, Soft Genitalia: Deferred Pelvic: Deferred Rectal: Deferred Extremities: No calf tenderness, Pedal edema Musculoskeletal : Apperance: Normal Neurologic: Alert, tag stringer II-XII nml as Tested, No Motor Deficits, Normal Affect, Normal Mood, No Sensory Deficits Cerebellar Function: NOT DONE Reflexes: NOT DONE Skin: Normal Color Peripheral Pulses: 3+ Radial (R), 3+ Radial (L) Lymphatic: No Adenopathy Was a procedure done? Was a procedure done?: No Differential Dx Considerations may include: acute CHF exacerbation, noncompliance, X-Ray, Labs, Meds, VS Vital Signs Date Time Temp Pulse Resp B/P (MAP) Pulse Ox O2 Delivery O2 Flow Rate FiO2 03/10/25 16:10 97 Room Air* 0 21 10/25/25 16:05 77 17 97 Room Air* 0 21 03/10/25 15:30 98.1 70 18 148/63 (91) 97 98.1 03/10/25 14:46 98.2 70 20 161/75 95 98.2 Lab Test 03/10/25 14:57 Range/Units White Blood Count 5.8 4.4-10.8 10^3/uL Red Blood Count 4.53 4.5-5.90 10^6/uL Hemoglobin 14.5 13.5-17.5 g/dL Hematocrit 42.6 41.0-53.0 % Mean Corpuscular Volume 94.0 80.0-100.0 fL Mean Corpuscular Hemoglobin 32.0 28.0-32.0 pg Mean Corpuscular Hemoglobin Concent 34.0 32.0-36.0 g/dL Red Cell Distribution Width 13.5 11.8-14.3 % Platelet Count 239 140-450 10^3/uL Mean Platelet Volume 7.1 6.9-10.8 fL Neutrophils (%) (Auto) 61.8 37.0-80.0 % Lymphocytes (%) (Auto) 21.3 10.0-50.0 % Monocytes (%) (Auto) 11.7 0.0-12.0 % Eosinophils (%) (Auto) 3.9 0.0-7.0 % Basophils (%) (Auto) 1.3 0.0-2.0 % Neutrophils # (Auto) 3.6 1.6-8.6 10 ^3/uL Lymphocytes # (Auto) 1.2 0.4-5.4 10 ^3/uL Monocytes # (Auto) 0.7 0-1.3 10 ^3/uL Eosinophils # (Auto) 0.2 0-0.8 10 ^3/uL Basophils # (Auto) 0.1 0-0.2 10 ^3/uL Nucleated Red Blood Cells 0.0 % Sodium Level 141 136-145 mmol/L Potassium Level 4.1 3.5-5.1 mmol/L Chloride Level 106 98-107 mmol/L Carbon Dioxide Level 25 20-31 mmol/L Anion Gap 10 5-15 Blood Urea Nitrogen 28 H 9-23 mg/dL Creatinine 1.60 H 0.700-1.30 mg/dL Glomerular Filtration Rate Calc 47 >90 mL/min BUN/Creatinine Ratio 17.5 10.0-20.0 Serum Glucose 136 H 74-106 mg/dL Lactic Acid Level 2.0 0.4-2.0 mmol/L Calcium Level 9.1 8.7-10.4 mg/dL Troponin I High Sensitivity 9 </=54 ng/L B-Type Natriuretic Peptide 16.02 0-100 pg/mL Patient alert. Vitals stable. Was recently discharged from this hospital. Answering questions. He does have mild swelling of the lower extremity along with mild redness. No sign of sepsis. WBC within normal limits. Possibly had a seizure. Possibly psychogenic seizure. Blood sugar slightly elevated. Establish intravenous access. Explained to the patient. Continue monitoring. Time of 1ST Reevaluation: 15:00 Reevaluation 1ST: Unchanged Patient Education/Counseling: Diagnosis, Treatment, Need For Follow Up Family Education/Counseling: No Family Present SEPSIS Sepsis Screen Physician Orders Chest Portable (03/10/25 14:41) Vital Signs Date Time Temp Pulse Resp B/P (MAP) Pulse Ox O2 Delivery O2 Flow Rate FiO2 03/10/25 16:10 97 Room Air* 0 21 03/10/25 16:05 77 17 97 Room Air* 0 21 03/10/25 15:30 98.1 70 18 148/63 (91) 97 98.1 03/10/25 14:46 98.2 70 20 161/75 95 98.2 Laboratory Tests Test 03/10/25 14:57 Lactic Acid Level 2.0 mmol/L (0.4-2.0) White Blood Count 5.8 10^3/uL (4.4-10.8) Departure 1 Departure Time of Disposition: 16:23 Impression: Primary Impression: Lower extremity cellulitis Qualified Codes: L03.119 - Cellulitis of unspecified part of limb Additional Impressions: HTN (hypertension) Qualified Codes: I10 - Essential (primary) hypertension Sturge-Mullen syndrome with glaucoma Hyperglycemia Disposition: ADMITTED INPATIENT Admit to: Med Surg Condition: Guarded Critical Care Note Critical Care Time?: No Stability Stability form required: No Heart Score Heart Score: Heart Score Response (Comments) Value History N/A 0 EKG N/A 0 Age N/A 0 Risk Factors N/A 0 Troponin N/A 0 Total 0 I personally scribed for SHANNON CORTES MD ([email or web address]) on 03/10/25 at 14:58. Electronically submitted by Rolf Pennington ([email or web address]). SHANNON CORTES MD Mar 10, 2025 14:58
[2025-03-10 15:12] LABS: Hematocrit 42.6 % (41.0-53.0); Hemoglobin 14.5 g/dL (13.5-17.5); Mean Corpuscular Hemoglobin 32.0 pg (28.0-32.0); Mean Corpuscular Volume 94.0 fL (80.0-100.0); Nucleated Red Blood Cells % 0.0 %
[2025-03-10 15:20] LABS: Chloride 106 mmol/L (98-107); Potassium 4.1 mmol/L (3.5-5.1); Sodium 141 mmol/L (136-145)
[2025-03-10 15:21] LABS: Anion Gap 10 (5-15); Calcium 9.1 mg/dL (8.7-10.4); Carbon Dioxide 25 mmol/L (20-31)
[2025-03-10 15:26] LABS: BUN/Creatinine Ratio 17.5 (10.0-20.0)
[2025-03-10 15:27] LABS: Blood Urea Nitrogen 28 mg/dL (9-23); Glucose 136 mg/dL (74-106)
--- NOTE | 2025-03-10 15:37 | DVH ---
EXAM: XY CHEST PORTABLE HISTORY: sob TECHNIQUE: 1 view of the chest COMPARISON: XY CHEST PORTABLE on DOS: 12/06/24 FINDINGS/IMPRESSION: LUNGS: No pleural effusion, consolidation, or pneumothorax. MEDIASTINUM: Unremarkable. BONES: No acute osseous abnormality. OTHER: None.
[2025-03-10 16:05] VITALS: PULSE 77; RESP 17; O2SAT 97
[2025-03-10] MEDS: FUROSEMIDE 40 MG/4 ML VIAL IV ONE (16:27)
--- NOTE | 2025-03-10 17:27 | DVHHP2 ---
History of Present Illness Reason for Visit: Lower extremity swelling History of Present Illness 64-year-old male presents for evaluation of lower extremity swelling. Patient reports recently being discharged after being admitted and treated for bilateral lower extremity infection. He states that after discharge he did not receive his antibiotics on time. He recently started noticing swelling and mild redness to bilateral lower extremities. Reports occasional chills. No other acute complaints reported. Past Medical History Diabetes mellitus, CVA, COPD, dyslipidemia, hypertension, seizures, Sturge-Mullen syndrome Past Surgical History Denies Family History Noncontributory Smoke: Quit ALCOHOL: occassional Drugs: Marijuana Review of Systems Review of Systems Review of systems are currently negative otherwise addressed in HPI. Allergies: Coded Allergies: NO KNOWN ALLERGIES (Unverified , 01/23/19) Exam Vital Signs Vital Signs Date Time Temp Pulse Resp B/P (MAP) Pulse Ox O2 Delivery O2 Flow Rate FiO2 03/10/25 16:27 158/73 03/10/25 16:10 97 Room Air* 0 21 03/10/25 16:05 77 17 03/10/25 15:30 98.1 98.1 Exam Gen: 64-year-old male in mild distress Skin: Warm, dry, normal color and texture, no rash. HEENT: Normocephalic atraumatic, mucous membranes moist and pink. Neck: Cervical and supraclavicular nodes normal without enlargement, trachea is midline, thyroid gland is normal without masses. Pulmonary: Clear to auscultation and percussion bilaterally. Cardiac: Regular rate and rhythm. No murmur Abdomen: Soft, nontender, nondistended, bowel sounds present all 4 quadrants, no guarding, no rigidity, no organomegaly. Extremities: No cyanosis, clubbing, bilateral lower extremity plus one edema with mild erythema Neuro: Cranial nerves II through XII grossly intact, normal affect and speech, no focal motor deficits. Labs/Xrays ORDERING PHYSICIAN: SHANNON CORTES MD PROCEDURE(s): CXRP - CHEST PORTABLE REASON: sob ORDER NUMBER(s): [id number], ACCESSION NUMBER(s): [id number] EXAM: XY CHEST PORTABLE HISTORY: sob TECHNIQUE: 1 view of the chest COMPARISON: XY CHEST PORTABLE on DOS: 12/06/24 FINDINGS/IMPRESSION: LUNGS: No pleural effusion, consolidation, or pneumothorax. MEDIASTINUM: Unremarkable. BONES: No acute osseous abnormality. OTHER: None. Labs Test 03/10/25 14:57 Range/Units White Blood Count 5.8 4.4-10.8 10^3/uL Red Blood Count 4.53 4.5-5.90 10^6/uL Hemoglobin 14.5 13.5-17.5 g/dL Hematocrit 42.6 41.0-53.0 % Mean Corpuscular Volume 94.0 80.0-100.0 fL Mean Corpuscular Hemoglobin 32.0 28.0-32.0 pg Mean Corpuscular Hemoglobin Concent 34.0 32.0-36.0 g/dL Red Cell Distribution Width 13.5 11.8-14.3 % Platelet Count 239 140-450 10^3/uL Mean Platelet Volume 7.1 6.9-10.8 fL Neutrophils (%) (Auto) 61.8 37.0-80.0 % Lymphocytes (%) (Auto) 21.3 10.0-50.0 % Monocytes (%) (Auto) 11.7 0.0-12.0 % Eosinophils (%) (Auto) 3.9 0.0-7.0 % Basophils (%) (Auto) 1.3 0.0-2.0 % Neutrophils # (Auto) 3.6 1.6-8.6 10 ^3/uL Lymphocytes # (Auto) 1.2 0.4-5.4 10 ^3/uL Monocytes # (Auto) 0.7 0-1.3 10 ^3/uL Eosinophils # (Auto) 0.2 0-0.8 10 ^3/uL Basophils # (Auto) 0.1 0-0.2 10 ^3/uL Nucleated Red Blood Cells 0.0 % Sodium Level 141 136-145 mmol/L Potassium Level 4.1 3.5-5.1 mmol/L Chloride Level 106 98-107 mmol/L Carbon Dioxide Level 25 20-31 mmol/L Anion Gap 10 5-15 Blood Urea Nitrogen 28 H 9-23 mg/dL Creatinine 1.60 H 0.700-1.30 mg/dL Glomerular Filtration Rate Calc 47 >90 mL/min BUN/Creatinine Ratio 17.5 10.0-20.0 Serum Glucose 136 H 74-106 mg/dL Lactic Acid Level 2.0 0.4-2.0 mmol/L Calcium Level 9.1 8.7-10.4 mg/dL Troponin I High Sensitivity 9 </=54 ng/L B-Type Natriuretic Peptide 16.02 0-100 pg/mL SEPSIS Sepsis Screen Date sepsis recognized/suspect: Mar 10, 2025 Time Sepsis recognized/suspect: 1608 Recent Procedure: No On Antibiotic Therapy: No Respiratory Rate >20: No Heart Rate >90: No Temp<36 C (96.8 F) or >38.3 C: No SBP <90 or MAP <65 mmHG: No New Acute Mental Status Change: No Is the patient on CPAP, BIPAP,: No Physician Orders Chest Portable (03/10/25 14:41) Admit (03/10/25 17:15) Consistent Carb(Ccho)Diabetes (03/10/25 Dinner) Amlodipine Tablet (Norvasc Tablet) (03/11/25 10:00) Atorvastatin (Lipitor) (03/10/25 22:00) Hydrochlorothiazide Tablet (Hydrochlorot (03/11/25 10:00) Nifedipine Er (Procardia Xl (Time-Releas (03/11/25 10:00) Clindamycin Ivpb Cleocin (03/10/25 22:00) Basic Metabolic Panel (03/11/25 04:00) Glucose Blood (Accu-Chek Comfort Curve T (03/10/25 22:00) Mild Sliding Scale (03/10/25 22:00) Dextrose 50% Syringe (03/10/25 17:30) Hydrocodone-Acet 5/325mg Tab (Kinzers 5/32 (03/10/25 17:30) Ondansetron Hcl (Zofran) (03/10/25 17:30) Complete Blood Count (03/11/25 04:00) Cardiac Diet-2gna,Lofat,Lochol (03/10/25 Dinner) Condition: Stable (03/10/25 17:17) Acetaminophen Tablet (Tylenol Tablet) (03/10/25 17:30) Bedrest With Bathroom Privileg (03/10/25 17:17) Vital Signs Date Time Temp Pulse Resp B/P (MAP) Pulse Ox O2 Delivery O2 Flow Rate FiO2 03/10/25 16:27 158/73 03/10/25 16:10 97 Room Air* 0 21 03/10/25 16:05 77 17 97 Room Air* 0 21 03/10/25 15:30 98.1 70 18 148/63 (91) 97 98.1 03/10/25 14:46 98.2 70 20 161/75 95 98.2 Laboratory Tests Test 03/10/25 14:57 Lactic Acid Level 2.0 mmol/L (0.4-2.0) White Blood Count 5.8 10^3/uL (4.4-10.8) Medications Medications Dose Ordered Sig/Jaclyn Route Start Time Stop Time Status Last Admin Dose Admin Furosemide 40 mg ONCE ONCE IV 03/10/25 14:45 03/10/25 14:46 DC 03/10/25 16:27 40 MG Assessment/Plan Assessment/Plan Assessment Bilateral lower extremity cellulitis Hypertension Diabetes mellitus Morbid obesity Plan Admit the patient to [facility] to the hospitalist Clindamycin Blood cultures pending Resume home medications Echocardiogram pending Continue treatment per orders Plan discussed with: Patient My Orders Orders - VAIVA WRIGHT Procedure Category Date Status Time Admit ADMIT 03/10/25 Transmitted 17:15 Consistent DIET 03/10/25 Transmitted Carb(Ccho)Diabetes Dinner Amlodipine Tablet PHA 03/11/25 Transmitted (Norvasc Tablet) 10:00 Atorvastatin (Lipitor) PHA 03/10/25 Transmitted 22:00 Hydrochlorothiazide PHA 03/11/25 Transmitted Tablet (Hydrochlorot 10:00 Nifedipine Er PHA 03/11/25 Transmitted (Procardia Xl 10:00 Clindamycin Ivpb PHA 03/10/25 Transmitted Cleocin 22:00 Basic Metabolic Panel LAB 03/11/25 Verified 04:00 Glucose Blood PHA 03/10/25 Transmitted (Accu-Chek Comfort 22:00 Mild Sliding Scale PHA 03/10/25 Transmitted 22:00 Dextrose 50% Syringe PHA 03/10/25 Transmitted 17:30 Hydrocodone-Acet PHA 03/10/25 Transmitted 5/325mg Tab (Kinzers 17:30 Ondansetron Hcl PHA 03/10/25 Transmitted (Zofran) 17:30 Complete Blood Count LAB 03/11/25 Verified 04:00 Cardiac DIET 03/10/25 Transmitted Diet-2gna,Lofat,Lochol Dinner Condition: Stable ANJEL 03/10/25 Transmitted 17:17 Acetaminophen Tablet PHA 03/10/25 Transmitted (Tylenol Tablet) 17:30 Bedrest With Bathroom ANJEL 03/10/25 Transmitted Privileg 17:17 Date of Service: Mar 10, 2025 Billing Provider: AVIVA WRIGHT Common Visit Codes: [id number] INP/OBS CARE (MOD) AVIVA WRIGHT Mar 10, 2025 17:27
[2025-03-10] MEDS ORDERED: ONDANSETRON HCL 4 MG/2 ML VIAL IV PRN (17:30)
[2025-03-10] MEDS ORDERED: HYDROcodone-ACET 5/325MG TAB PO PRN (17:30)
[2025-03-10] MEDS ORDERED: ACETAMINOPHEN 325 MG TAB PO PRN (17:30)
[2025-03-10] MEDS ORDERED: DEXTROSE (50%) 50ML SYRG IV PRN (17:30)
[2025-03-10 18:00] VITALS: BP 120/60; PULSE 66; RESP 14; TEMP 98.2; O2SAT 95
[2025-03-10 23:30] VITALS: BP 124/73; PULSE 78; RESP 20; TEMP 98.6; O2SAT 98
[2025-03-11] VITALS (8 sets, daily range): BP systolic 107–128; BP diastolic 66–89; PULSE 63–74; RESP 18–20; TEMP 97.4–98.6; O2SAT 95–99
[2025-03-11] MEDS: CLINDAMYCIN 600MG IV 50 ML IV SCH (00:04)
[2025-03-11] MEDS: InsuLIN REG 1unit/0.01ml Soln (100units/ml) SC SCH (00:09)
[2025-03-11] MEDS: ATORVASTATIN 20 MG TAB PO SCH (00:11)
[2025-03-11] MEDS: ACCU-CHEK COMFORT CURVE STRIP VI SCH (00:32)
[2025-03-11 06:14] LABS: Hematocrit 40.6 % (41.0-53.0); Hemoglobin 13.5 g/dL (13.5-17.5); Mean Corpuscular Hemoglobin 31.7 pg (28.0-32.0); Mean Corpuscular Volume 95.0 fL (80.0-100.0); Nucleated Red Blood Cells % 0.3 %
[2025-03-11 06:37] LABS: Chloride 102 mmol/L (98-107); Potassium 4.0 mmol/L (3.5-5.1); Sodium 140 mmol/L (136-145)
[2025-03-11 06:38] LABS: Anion Gap 10 (5-15); Carbon Dioxide 28 mmol/L (20-31)
[2025-03-11 06:39] LABS: Calcium 9.3 mg/dL (8.7-10.4)
[2025-03-11 06:43] LABS: BUN/Creatinine Ratio 22.5 (10.0-20.0)
[2025-03-11 06:48] LABS: Blood Urea Nitrogen 27 mg/dL (9-23); Glucose 124 mg/dL (74-106)
[2025-03-11] MEDS: hydroCHLOROthiazide 25 MG TAB PO SCH (09:20)
[2025-03-11] MEDS: FUROSEMIDE 20 MG TAB PO SCH (09:20)
--- NOTE | 2025-03-11 13:10 | DVHPN2 ---
Subjective Patient complains of bilateral lower extremity swelling Reviewed: Care Plan, H&P, Labs Changes from previous H/P or p: No Changes General: Per HPI Objective Vitals Vital Signs Date Time Temp Pulse Resp B/P (MAP) Pulse Ox O2 Delivery O2 Flow Rate FiO2 03/11/25 09:21 131/75 03/11/25 08:44 97.4 64 18 98 97.4 03/11/25 08:00 Room Air* 0 21 Intake/Output Intake and Output 03/11/25 07:00 Intake Total 500 ml Output Total 380 ml Balance 120 ml Intake Oral 400 ml IV Total 100 ml Output Urine Total 380 ml General Appearance: Alert, Oriented X3, Cooperative, No acute distress HEENT: PERRLA, Other (Sturge-Mullen) Lungs: Clear to auscultation, Normal air movement Cardiovascular: Normal S1, Normal S2 Abdomen: Normal bowel sounds, Soft, No tenderness, No hepatospenomegaly Back: Flank Tenderness, Midline Tenderness Musculoskeletal: Normal motor function Skin: Dry, Intact Psych/Mental Status: Mental status NL, Mood NL Medications Current Medications Medications Dose Ordered Sig/Jaclyn Route Start Time Stop Time Status Last Admin Dose Admin Amlodipine Besylate 10 mg DAILY PO 03/11/25 10:00 03/11/25 09:21 10 MG Atorvastatin Calcium 40 mg HS PO 03/10/25 22:00 03/11/25 00:11 40 MG Hydrochlorothiazide 12.5 mg DAILY PO 03/11/25 10:00 03/11/25 09:20 12.5 MG Nifedipine 60 mg DAILY PO 03/11/25 10:00 03/11/25 09:21 60 MG Clindamycin Phosphate 50 ml @ 50 mls/hr Q8HR IV 03/10/25 22:00 03/11/25 05:34 50 MLS/HR Diagnostic Test (Pha) 1 strip ACHS 03/10/25 22:00 03/11/25 12:26 1 STRIP Insulin Human Regular ACHS SC 03/10/25 22:00 03/11/25 12:27 2 UNITS Dextrose 50 ml UD PRN IV 03/10/25 17:30 Acetaminophen/ Hydrocodone Bitart 1 tab Q4HP PRN PO 03/10/25 17:30 Ondansetron HCl 4 mg Q4HP PRN IV 03/10/25 17:30 Acetaminophen 650 mg Q6HP PRN PO 03/10/25 17:30 Furosemide 20 mg DAILY PO 03/11/25 10:00 03/11/25 09:20 20 MG Laboratory Results Laboratory Tests 03/11/25 05:16 Chemistry Test 03/10/25 14:57 03/11/25 05:16 Calcium Level 9.1 mg/dL (8.7-10.4) 9.3 mg/dL (8.7-10.4) Cardiac Markers Test 03/10/25 14:57 B-Type Natriuretic Peptide 16.02 pg/mL (0-100) Labs and/or images reviewed: Labs reviewed by me, Image(s) reviewed by me Assessment/Plan Assessment/Plan Impression: -bilateral lower extremity cellulitis -probable acute diastolic heart failure -obesity -stage Mullen disorder -diabetes mellitus type 2 -? Coronary syndrome Plan: -stop amlodipine and Procardia given bilateral lower extremity swelling -continue diuresis with hydrochlorothiazide -echocardiogram -continue antibiotic therapy with clindamycin -DVT ruled out to lower extremities on previous admission -consider cardiology consultation with echo results Total time spent with patient discussing and formulating plan of care: 35 minutes. This medical document was created using an electronic medical record system with [employer] dictation system. Although this document has been carefully reviewed, there may still be some phonetic and typographical errors. These areas are purely typographical due to imperfections of the software programs, and do not reflect any compromise in the patient's medical care. Plan discussed with: Patient, Other (RN) My Orders Orders - PHILLIP MEEKS NP Procedure Category Date Status Time Metoprolol Xl PHA 03/12/25 Verified Succinate (Toprol Xl) 10:00 Date of Service: Mar 11, 2025 Billing Provider: PHILLIP MEEKS NP Common Visit Codes: [id number] INP/OBS CARE(HIGH) PHILLIP MEEKS NP Mar 11, 2025 13:10
--- NOTE | 2025-03-11 23:07 | DVHINCON2 ---
Date of service: Mar 11, 2025 Referring Physician Giuseppe Reason for Consultation Seizure on 03/10 at roughly 3-3:30 p.m. per patient History of Present Illness Mr. Storey is a 64 years old right-handed gentleman with a history of hypertension, dyslipidemia, anxiety, obesity, Sturge-Mullen syndrome, glaucoma, he came to the [facility] on 03/10/2025 with a chief complaint of general weakness, bilateral leg swelling and seizure activity. At this time, he is alert and fully oriented, he provided the following history I saw him on 09/30/2019 for headache, dizziness, 02/10/24 for TIA (negative MRI), I saw him in my office 11/26/16-12/31/16 for anxiety, seizure (I suspected nonepileptic seizure) On 03/10/2025, he had a and tingling starting from all the right toes, spreading upwards to the whole lower extremity, whole right upper extremity and the right mouth corner over 1 minutes, meanwhile he could not talk (was able to vocalize) and the whole event was about 15 minutes without confusion/ALOC. Since 2016, he has had similar 6 events, 4 were in 2024. He saw Dr. Frank Morrow, a local neurologist, and Dr. Morrow referred him to the [facility] where he stayed for about 11 days with wires on the head, video camera informed him (I presume the continuous video EEG monitoring), but no event was captured, and no problem was found [facility] ER note, 04/13/23: Chief complaint: Numbness. Stroke with right-sided deficit for 2 years EKG, 04/13/2023: Normal sinus rhythm CT head, 04/13/2023: 1 significant soft tissue swelling in the left preseptal location. There is deformity in the left globe with calcification in the region of the retina. Significance is unclear. No CT evidence of acute intracranial bleeding or infarct CT head, 02/09/2024: No acute findings. Left periorbital soft tissue swelling and left proptosis. Left globe is diminutive and heavily calcified CTA head, neck, 04/13/2023: No acute findings in the arteries of the head and neck. Vascular malformation of the midline vertical with early drainage to the straight sinus CTA head, neck, 02/09/2024: No acute tentorial fighting. Left periorbital soft tissue swelling and the left orbital ptosis. Misshapen heavily calcified globe. Multiple exophytic cutaneous lesions involving the left maxillofacial, periorbital and frontal region. Correlate clinically CBC, 03/10/2025: Unremarkable BUN/CR, 03/10/2025: 28/1.6, 03/11/2025: 27/1.2 TG/CHO L/LDL/HDL, 06/2022: 167/145/89/37, 01/20/2024: 284/146/63/34 CT 09/29/19: 1. Mild circumferential wall thickening of the lower rectum with surrounding inflammatory changes concerning for proctitis. 2. Hepatomegaly with fatty infiltration. 3. Mild cardiomegaly. 4. Trace pleural effusions. 5. IVC filter in place. 6. Mild prostatomegaly MRI head, 09/30/2019: 1. No acute infarction or intracranial hemorrhage. 2. Minimal chronic microvascular ischemic changes. 3. Left proptosis with phthisis bulbi. Correlate clinically MRI head, 04/13/2023: No evidence of acute infarction, intracranial hemorrhage, mass effect or hydrocephalus MRI head, 02/10/2024: 1. No acute infarct, intracranial hemorrhage, mass effect, or hydrocephalus. 2. Lobular soft tissue thickening of the left periorbital and left frontal soft tissues. 3. Signal abnormality in the left orbit. Please correlate with symptoms and history. 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 He denies a history of alcohol or drug abuse Allergies: Coded Allergies: NO KNOWN ALLERGIES (Unverified , 01/23/19) Home Meds Active Scripts Clindamycin Hcl (Clindamycin Hcl) 300 Mg Cap, 1 CAP PO TID PRN for 5 Days, #15 CAP Prov:VIOLET ZIMMERMAN MD 02/26/25 Hydrochlorothiazide (Hydrochlorothiazide) 12.5 Mg Cap, 1 CAP PO DAILY for 30 Days, #30 CAP 5 Refills Prov:MONIKA DERAS [facility] 08/25/24 Cefpodoxime Proxetil (Cefpodoxime Proxetil) 200 Mg Tab, 1 TAB PO BID for 5 Days, #10 TAB Prov:MONIKA DERAS [facility] 08/25/24 Amlodipine Besylate (Amlodipine Besylate) 10 Mg Tab, 1 TAB PO DAILY for 30 Days, #30 TAB 5 Refills Prov:MONIKA DERAS [facility] 08/25/24 Lisinopril (Lisinopril) 20 Mg Tab, 1 TAB PO DAILY for 30 Days, #30 TAB 5 Refills Prov:MONIKA DERAS [facility] 08/25/24 Cyanocobalamin (B-12) 1,000 Mcg Cap, 1000 MCG PO QAM for 30 Days, #30 CAP Prov:SKYLER MATHEWS MD 02/10/24 Atorvastatin Calcium (Lipitor) 40 Mg Tab, 1 TAB PO QPM, #30 TAB 1 Refill Prov:SKYLER MATHEWS MD 02/10/24 Aspirin (Aspirin Low Dose) 81 Mg Tab, 81 MG PO DAILY for 30 Days, #30 TAB Prov:SKYLER MATHEWS MD 02/10/24 Reported Medications Nifedipine (Nifedipine Er) 60 Mg Tab, 1 TAB PO 02/22/25 Pantoprazole Sodium Sesquihydr (Pantoprazole Sodium) 40 Mg Tab, 1 TAB PO DAILY 02/22/25 Fenofibrate (Fenofibrate) 160 Mg Tab, 1 TAB PO DAILY 02/22/25 Metformin Hydrochloride (Metformin Hcl) 500 Mg Tab, 1 TAB PO BID 08/21/24 Current Medications Current Medications Medications (Trade) Dose Ordered Sig/Jaclyn Route PRN Reason Start Time Stop Time Status Last Admin Amlodipine Besylate (Norvasc Tablet) 10 mg DAILY PO 03/11/25 10:00 03/11/25 13:08 DC 03/11/25 09:21 Hydrochlorothiazide (hydroCHLOROthiazide TABLET) 12.5 mg DAILY PO 03/11/25 10:00 03/11/25 09:20 Nifedipine (Procardia Xl (Time-Release)) 60 mg DAILY PO 03/11/25 10:00 03/11/25 13:08 DC 03/11/25 09:21 Furosemide (Lasix Tablet) 20 mg DAILY PO 03/11/25 10:00 03/11/25 09:20 Metoprolol Succinate (Toprol Xl) 25 mg DAILY PO 03/12/25 10:00 Review of Systems As above, the other system negative Vital Signs Vital Signs Date Time Temp Pulse Resp B/P (MAP) Pulse Ox O2 Delivery O2 Flow Rate FiO2 03/11/25 16:34 98.2 68 18 111/71 (84) 98 98.2 03/11/25 08:00 Room Air* 0 21 Physical Exam GENERAL EXAM: General: the patient is well developed and nourished. No acute distress. HEENT: Change in the left head and face is consistent with Sturge-Mullen syndrome, neck is supple, no carotid bruits. No mass. RESPIRATORY: Normal respiratory effort with symmetrical lung expansion. Lungs clear to auscultation. CARDIOVASCULAR: Regular rate and rhythm with no murmurs. S1, S2. ABDOMEN: Soft, nontender, normal bowel sound NEUROLOGICAL: MENTAL STATUS: Awake and alert. Oriented to person, place, time and general circumstances. Able to give personal history. SPEECH, LANGUAGE, HIGHER CORTICAL FUNCTION: no aphasia or dysathria. CRANIAL NERVES: #2: Intact visual soliman to confrontation. The left eye is red, no light perception #3,4,6: Right pupils is round and reactive. EOMs full and conjugate #5: Facial sensation intact in all three divisions bilaterally. Mandibular strength intact. #7: Facial muscles symmetrical and strength intact. #8: Hearing grossly normal to voice. #9,10: Uvula and soft palate rise in the midline. Swallow and voice are normal. #11: Trapezius and sternomastoid strength intact bilaterally. #12: Tongue midline. No fasciculations or atrophy. SENSATION: Sensation to touch and pinprick is normal. MOTOR: Normal tone in the upper and lower extremity. Normal muscle bulk. No fasciculations. No abnormal movements or posturing. Muscle strength of the major groups in the upper extremities is 5/5. Muscle strength of the major groups in the lower extremities is 5/5. REFLEXES: Deep tendon reflexes are symmetrical. No pathological reflexes. CEREBELLAR/COORDINATION: Finger to nose is normal bilaterally. GAIT/STATION: deferred Labs/Diagnostic Data Labs Test 03/11/25 20:20 03/11/25 05:16 03/10/25 14:57 Range/Units POC Glucose 237 H 70-106 mg/dl White Blood Count 5.3 4.4-10.8 10^3/uL Red Blood Count 4.27 L 4.5-5.90 10^6/uL Hemoglobin 13.5 13.5-17.5 g/dL Hematocrit 40.6 L 41.0-53.0 % Mean Corpuscular Volume 95.0 80.0-100.0 fL Mean Corpuscular Hemoglobin 31.7 28.0-32.0 pg Mean Corpuscular Hemoglobin Concent 33.4 32.0-36.0 g/dL Red Cell Distribution Width 13.6 11.8-14.3 % Platelet Count 215 140-450 10^3/uL Mean Platelet Volume 7.1 6.9-10.8 fL Neutrophils (%) (Auto) 54.4 37.0-80.0 % Lymphocytes (%) (Auto) 27.3 10.0-50.0 % Monocytes (%) (Auto) 12.6 H 0.0-12.0 % Eosinophils (%) (Auto) 4.8 0.0-7.0 % Basophils (%) (Auto) 0.9 0.0-2.0 % Neutrophils # (Auto) 2.9 1.6-8.6 10 ^3/uL Lymphocytes # (Auto) 1.4 0.4-5.4 10 ^3/uL Monocytes # (Auto) 0.7 0-1.3 10 ^3/uL Eosinophils # (Auto) 0.3 0-0.8 10 ^3/uL Basophils # (Auto) 0 0-0.2 10 ^3/uL Nucleated Red Blood Cells 0.3 % Sodium Level 140 136-145 mmol/L Potassium Level 4.0 3.5-5.1 mmol/L Chloride Level 102 98-107 mmol/L Carbon Dioxide Level 28 20-31 mmol/L Anion Gap 10 5-15 Blood Urea Nitrogen 27 H 9-23 mg/dL Creatinine 1.20 0.700-1.30 mg/dL Glomerular Filtration Rate Calc 67 >90 mL/min BUN/Creatinine Ratio 22.5 H 10.0-20.0 Serum Glucose 124 H 74-106 mg/dL Calcium Level 9.3 8.7-10.4 mg/dL Lactic Acid Level 2.0 0.4-2.0 mmol/L Troponin I High Sensitivity 9 </=54 ng/L B-Type Natriuretic Peptide 16.02 0-100 pg/mL Microbiology Date/Time Source Procedure Growth Status 03/10/25 23:46 Nose MRSA Screen - Final Complete Assessment Recurrent shaking and paresthesia event in the right side of the body 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 Ativan for seizure breakthrough DVT prophylaxis Cardiology evaluation More recommendation per clinical course Progress: Poor This medical document was created using an electronic medical record system with [employer] dictation system. Although this document has been carefully reviewed, there may still be some phonetic and typographical errors. These areas are purely typographical due to imperfections of the software programs, and do not reflect any compromise in the patient's medical care Plan discussed with: Patient, Other TERESA CHAVIS MD Mar 11, 2025 23:07
[2025-03-12] MEDS ORDERED: LORazepam 2MG/ML-1ML VIAL IV PRN
[2025-03-12 05:00] VITALS: BP 107/61; PULSE 55; RESP 18; TEMP 96.7; O2SAT 96
[2025-03-12 08:00] VITALS: PULSE 55
[2025-03-12 08:58] VITALS: BP 140/83; PULSE 61; RESP 18; TEMP 98.7; O2SAT 97
--- NOTE | 2025-03-12 09:04 | DVHPN2 ---
Progress Note - Dictate Date Seen: Mar 12, 2025 Medical Necessity Reason Pt with a Central, PICC or Fol: No Subjective Mr. Storey is a 64 years old right-handed gentleman with a history of hypertension, dyslipidemia, anxiety, obesity, Sturge-Mullen syndrome, glaucoma, he came to the [facility] on 03/10/2025 with a chief complaint of general weakness, bilateral leg swelling and seizure activity. I saw him on 09/30/2019 for headache, dizziness, 02/10/24 for TIA (negative MRI), I saw him in my office 11/26/16-12/31/16 for anxiety, seizure (I suspected nonepileptic seizure) I have seen examined the patient, I discussed with himself and his nurse, he is doing fine no seizure activity, no other complaints [facility] ER note, 04/13/23: Chief complaint: Numbness. Stroke with right-sided deficit for 2 years EKG, 04/13/2023: Normal sinus rhythm CT head, 04/13/2023: 1 significant soft tissue swelling in the left preseptal location. There is deformity in the left globe with calcification in the region of the retina. Significance is unclear. No CT evidence of acute intracranial bleeding or infarct CT head, 02/09/2024: No acute findings. Left periorbital soft tissue swelling and left proptosis. Left globe is diminutive and heavily calcified CTA head, neck, 04/13/2023: No acute findings in the arteries of the head and neck. Vascular malformation of the midline vertical with early drainage to the straight sinus CTA head, neck, 02/09/2024: No acute tentorial fighting. Left periorbital soft tissue swelling and the left orbital ptosis. Misshapen heavily calcified globe. Multiple exophytic cutaneous lesions involving the left maxillofacial, periorbital and frontal region. Correlate clinically CBC, 03/10/2025: Unremarkable BUN/CR, 03/10/2025: 28/1.6, 03/11/2025: 27/1.2 TG/CHO L/LDL/HDL, 06/2022: 167/145/89/37, 01/20/2024: 284/146/63/34 CT 09/29/19: 1. Mild circumferential wall thickening of the lower rectum with surrounding inflammatory changes concerning for proctitis. 2. Hepatomegaly with fatty infiltration. 3. Mild cardiomegaly. 4. Trace pleural effusions. 5. IVC filter in place. 6. Mild prostatomegaly MRI head, 09/30/2019: 1. No acute infarction or intracranial hemorrhage. 2. Minimal chronic microvascular ischemic changes. 3. Left proptosis with phthisis bulbi. Correlate clinically MRI head, 04/13/2023: No evidence of acute infarction, intracranial hemorrhage, mass effect or hydrocephalus MRI head, 02/10/2024: 1. No acute infarct, intracranial hemorrhage, mass effect, or hydrocephalus. 2. Lobular soft tissue thickening of the left periorbital and left frontal soft tissues. 3. Signal abnormality in the left orbit. Please correlate with symptoms and history. Left proptosis vital signs Vital Sign Date Time Temp Pulse Resp B/P (MAP) Pulse Ox O2 Delivery O2 Flow Rate FiO2 03/12/25 08:58 98.7 61 18 140/83 (102) 97 98.7 03/11/25 20:00 Room Air* 0 21 Total Intake and Output 03/11/25 03/11/25 03/12/25 15:00 23:00 07:00 Intake Total 1110 ml 600 ml Output Total 1325 ml 1470 ml Balance -215 ml -870 ml medications Current Medications Medications Dose Ordered Sig/Jaclyn Route Start Time Stop Time Status Last Admin Dose Admin Atorvastatin Calcium 40 mg HS PO 03/10/25 22:00 03/11/25 20:47 40 MG Hydrochlorothiazide 12.5 mg DAILY PO 03/11/25 10:00 03/11/25 09:20 12.5 MG Clindamycin Phosphate 50 ml @ 50 mls/hr Q8HR IV 03/10/25 22:00 03/12/25 06:41 50 MLS/HR Diagnostic Test (Pha) 1 strip ACHS 03/10/25 22:00 03/12/25 06:59 1 STRIP Insulin Human Regular ACHS SC 03/10/25 22:00 03/12/25 05:56 2 UNITS Dextrose 50 ml UD PRN IV 03/10/25 17:30 Acetaminophen/ Hydrocodone Bitart 1 tab Q4HP PRN PO 03/10/25 17:30 Ondansetron HCl 4 mg Q4HP PRN IV 03/10/25 17:30 Acetaminophen 650 mg Q6HP PRN PO 03/10/25 17:30 Furosemide 20 mg DAILY PO 03/11/25 10:00 03/11/25 09:20 20 MG Metoprolol Succinate 25 mg DAILY PO 03/12/25 10:00 Levetiracetam 500 mg BID PO 03/12/25 10:00 Lorazepam 1 mg Q5MINP PRN IV 03/12/25 00:00 objective General: the patient is well developed and nourished. No acute distress. MENTAL STATUS: Awake and alert. Oriented to person, place, time and general circumstances. Able to give personal history. SPEECH, LANGUAGE, HIGHER CORTICAL FUNCTION: no aphasia or dysathria. CRANIAL NERVES: Intact visual soliman to confrontation. The left eye is red, no light perception. Right pupils is round and reactive. EOMs full and conjugate Facial sensation intact in all three divisions bilaterally. Mandibular strength intact. Facial muscles symmetrical and strength intact. SENSATION: Sensation to touch and pinprick is normal. MOTOR: Normal tone in the upper and lower extremity. Normal muscle bulk. No fasciculations. No abnormal movements or posturing. Muscle strength of the major groups in the extremities is 5/5. REFLEXES: Deep tendon reflexes are symmetrical. No pathological reflexes. CEREBELLAR/COORDINATION: Finger to nose is normal bilaterally. GAIT/STATION: deferred laboratory and microbiology Laboratory Tests 03/11/25 05:16 Test 03/11/25 05:16 Range/Units Serum Glucose 124 H 74-106 mg/dL Problem List Recurrent shaking and paresthesia event in the right side of the body Likely he has ian july seizure/partial simple seizure Sturge-Mullen syndrome Assessment/Plan Monitoring Supportive treatment Telemetry Keppra 500 mg b.i.d. Ativan for seizure breakthrough DVT prophylaxis Cardiology evaluation More recommendation per clinical course This medical document was created using an electronic medical record system with [employer] dictation system. Although this document has been carefully reviewed, there may still be some phonetic and typographical errors. These areas are purely typographical due to imperfections of the software programs, and do not reflect any compromise in the patient's medical care Prognosis poor Plan discussed with: Patient, Other TERESA CHAVIS MD Mar 12, 2025 09:04
[2025-03-12] MEDS: levETIRAcetam 500 MG TAB PO SCH (10:18)
[2025-03-12] MEDS: METOPROLOL SUCCINATE XL 50 MG TAB PO SCH (10:19)
[2025-03-12 13:00] VITALS: BP 135/72; PULSE 62; RESP 18; TEMP 98.8; O2SAT 98
--- NOTE | 2025-03-12 13:00 | DVHDS2 ---
Discharge Summary Date of Admission Mar 10, 2025 at 17:15 Date of Discharge: Mar 12, 2025 Admitting Diagnosis Bilateral lower extremity cellulitis Labs/Diagnostic Data: Laboratory Results Test 03/12/25 11:42 03/11/25 05:16 03/10/25 14:57 POC Glucose 141 mg/dl (70-106) White Blood Count 5.3 10^3/uL (4.4-10.8) Red Blood Count 4.27 10^6/uL (4.5-5.90) Hemoglobin 13.5 g/dL (13.5-17.5) Hematocrit 40.6 % (41.0-53.0) Mean Corpuscular Volume 95.0 fL (80.0-100.0) Mean Corpuscular Hemoglobin 31.7 pg (28.0-32.0) Mean Corpuscular Hemoglobin Concent 33.4 g/dL (32.0-36.0) Red Cell Distribution Width 13.6 % (11.8-14.3) Platelet Count 215 10^3/uL (140-450) Mean Platelet Volume 7.1 fL (6.9-10.8) Neutrophils (%) (Auto) 54.4 % (37.0-80.0) Lymphocytes (%) (Auto) 27.3 % (10.0-50.0) Monocytes (%) (Auto) 12.6 % (0.0-12.0) Eosinophils (%) (Auto) 4.8 % (0.0-7.0) Basophils (%) (Auto) 0.9 % (0.0-2.0) Neutrophils # (Auto) 2.9 10 ^3/uL (1.6-8.6) Lymphocytes # (Auto) 1.4 10 ^3/uL (0.4-5.4) Monocytes # (Auto) 0.7 10 ^3/uL (0-1.3) Eosinophils # (Auto) 0.3 10 ^3/uL (0-0.8) Basophils # (Auto) 0 10 ^3/uL (0-0.2) Nucleated Red Blood Cells 0.3 % Sodium Level 140 mmol/L (136-145) Potassium Level 4.0 mmol/L (3.5-5.1) Chloride Level 102 mmol/L (98-107) Carbon Dioxide Level 28 mmol/L (20-31) Anion Gap 10 (5-15) Blood Urea Nitrogen 27 mg/dL (9-23) Creatinine 1.20 mg/dL (0.700-1.30) Glomerular Filtration Rate Calc 67 mL/min (>90) BUN/Creatinine Ratio 22.5 (10.0-20.0) Serum Glucose 124 mg/dL (74-106) Calcium Level 9.3 mg/dL (8.7-10.4) Lactic Acid Level 2.0 mmol/L (0.4-2.0) Troponin I High Sensitivity 9 ng/L (</=54) B-Type Natriuretic Peptide 16.02 pg/mL (0-100) Other Laboratory Tests 03/11/25 05:16 Brief Hx & Hospital Course: History of Present Illness 64-year-old male presents for evaluation of lower extremity swelling. Patient reports recently being discharged after being admitted and treated for bilateral lower extremity infection. He states that after discharge he did not receive his antibiotics on time. He recently started noticing swelling and mild redness to bilateral lower extremities. Reports occasional chills. No other acute complaints reported. Course of hospitalization: Patient was treated with IV Rocephin. Patient's swelling has improved his lower extremities. Patient denies any other symptoms at this time. White blood cell count remained stable. Patient will be discharged home and start his oral antibiotic course that he has not started after his previous discharge. Patient had questionable right-sided seizure while in the hospital, for which neurologist Dr. Gray was consulted. Patient was placed on Keppra. He will continue this as well at the time of discharge. He will follow up with his PCP, Dr. Todd in 1-2 weeks. All questions answered. Physical examination General: Alert and Oriented x3. No acute distress. Well-nourished. Eyes: EOMI. Anicteric. HENT: Moist mucous membranes. Lungs: Clear to auscultation bilaterally. No accessory muscle use. Cardiovascular: Regular rate and rhythm. No murmur. No JVD. Abdomen: Soft, non-tender and non-distended. No palpable masses. Extremities: No edema. Non-tender. Skin: No rashes or lesions. Warm. Neurologic: No focal neurological deficits. CN II-XII grossly intact, but not individually tested. Psychiatric: Cooperative. Appropriate mood and affect. Total time spent with patient discussing and formulating plan of care: 35 minutes. This medical document was created using an electronic medical record system with [employer] dictation system. Although this document has been carefully reviewed, there may still be some phonetic and typographical errors. These areas are purely typographical due to imperfections of the software programs, and do not reflect any compromise in the patient's medical care. Consults/Reason for consult Neurology: Questionable seizure disorder Condition at Discharge: Guarded Final Diagnosis/Problems List Bilateral lower extremity cellulitis -bilateral lower extremity cellulitis -probable acute diastolic heart failure -obesity -stage Mullen disorder -diabetes mellitus type 2 -? Coronary syndrome -new onset seizure disorder Discharge Disposition: Home Discharge Instruct/Medications Diet: Cardiac 2g Na,low cholest Activity: No Restrictions, As Tolerated Follow Up/Referral: Follow up with PCP, Dr. Todd, in 1-2 weeks Medications: Continue all previous home medications Keppra 500 mg p.o. b.i.d. Patient states that his oral antibiotics are currently at his place of residence. Scheduled Amlodipine Besylate (Amlodipine Besylate), 1 TAB PO DAILY Aspirin (Aspirin Low Dose), 81 MG PO DAILY Atorvastatin Calcium (Lipitor), 1 TAB PO QPM Cefpodoxime Proxetil (Cefpodoxime Proxetil), 1 TAB PO BID Cyanocobalamin (B-12), 1,000 MCG PO QAM Fenofibrate (Fenofibrate), 1 TAB PO DAILY, (Reported) Hydrochlorothiazide (Hydrochlorothiazide), 1 CAP PO DAILY Lisinopril (Lisinopril), 1 TAB PO DAILY Metformin Hydrochloride (Metformin Hcl), 1 TAB PO BID, (Reported) Pantoprazole Sodium Sesquihydr (Pantoprazole Sodium), 1 TAB PO DAILY, (Reported) Scheduled PRN Clindamycin Hcl (Clindamycin Hcl), 1 CAP PO TID PRN Miscellaneous Medications Nifedipine (Nifedipine Er), 1 TAB PO, (Reported) Discharge Statement: "Patient was advised to return to the ER or call 911 if any headaches, dizziness, shortness of breath, chest pain, abdominal pain, bleeding, fevers, or worsening of medical condition. Patient was counseled about treatment plan, medications, possible side effects, patientverbalized understanding. All questions were answered to the best of my ability. This discharge took greater then 30 minutes in planning, reviewing documentation, counseling the patient, and discussing with other team members." ASSESSMENT ASSESSMENT Assessment Bilateral lower extremity cellulitis Date of Service: Mar 12, 2025 Billing Provider: PHILLIP MEEKS NP Common Visit Codes: 18049-EJU/OBS DISCH DAY >30min PHILLIP MEEKS NP Mar 12, 2025 13:00
[2025-03-12] MEDS ORDERED: LEVE500T40 PO (13:01)
== END 2025-03-12 15:10 | disposition home or self-care (01) | DRG 602 ==
LOC: ER 14:37 → EDBD 14:37 → OVERFLOW 17:15 → WEST WING 23:04 → TELE-WESTW 03-11 02:37
PROVIDERS: ADMIT Nurse Practitioner Acute Care; ATTEND Nurse Practitioner Acute Care
DX: L03.116 Cellulitis of left lower limb (principal); I50.31 Acute diastolic (congestive) heart failure; Q85.89 Other phakomatoses, not elsewhere classified; L03.115 Cellulitis of right lower limb; E11.65 Type 2 diabetes mellitus with hyperglycemia; E66.01 Morbid (severe) obesity due to excess calories; G40.909 Epilepsy, unspecified, not intractable, without status epilepticus; E78.5 Hyperlipidemia, unspecified; F17.200 Nicotine dependence, unspecified, uncomplicated; F41.9 Anxiety disorder, unspecified; H54.62 Unqualified visual loss, left eye, normal vision right eye; I11.0 Hypertensive heart disease with heart failure; J44.9 Chronic obstructive pulmonary disease, unspecified; Z80.0 Family history of malignant neoplasm of digestive organs; Z82.49 Family history of ischemic heart disease and other diseases of the circulatory system; Z83.3 Family history of diabetes mellitus; Z86.73 Personal history of transient ischemic attack (TIA), and cerebral infarction without residual deficits; Z95.828 Presence of other vascular implants and grafts; Z79.82 Long term (current) use of aspirin; Z79.899 Other long term (current) drug therapy; Z68.39 Body mass index [BMI] 39.0-39.9, adult
CPT/HCPCS: 36415; 71045; 80048; 82962; 83605; 83880; 84484; 85025; 87081; G0378; J1815; J3490

== ENCOUNTER 2025-04-05 12:47 | Emergency (ER) | payer OTHER, MEDICAID ==
[~2025-04-05] VITALS: Ht 180.3 cm; Wt 131.0 kg
[~2025-04-05 12:47] MED LIST changes: -CLIN1CAP70 PO; +LEVE500T40 PO
[2025-04-05 12:49] VITALS: BP 174/87; PULSE 67; RESP 18; TEMP 99.2; O2SAT 97
--- NOTE | 2025-04-05 13:57 | ED.PDOC ---
History of Present Illness HPI Comments A 64 YEAR OLD MALE PRESENTS TO THE ED WITH COMPLAINT OF SORE THROAT AND BILATERAL LEG SWELLING. PATIENT STATES HE HAS BEEN EXPERIENCING A SORE THROAT OFF AND ON FOR THE PAST 6 MONTHS WITH HIS PAIN RETURNING AGAIN OVER THE LAST 1 WEEK. PATIENT REPORTS HE HAS ALSO BEEN EXPERIENCING BILATERAL LEG SWELLING AND REDNESS FOR THE PAST 1 YEAR AND HAS BEEN PREVIOUSLY ADMITTED FOR THIS ISSUE IN THE PAST, BUT NOTES THERE HAS NEVER BEEN ANY IMPROVEMENT. THE PATIENT NOTES THAT HE WENT TO URGENT CARE TODAY WHERE COVID-19 TEST WAS DONE, STREP SWAB WAS DONE, AND AN INFLUENZA SWAB WAS DONE ALL OF WHICH WERE NEGATIVE AND WAS SENT TO THE ED FOR FURTHER EVALUATION OF HIS BILATERAL LEG SWELLING. PATIENT DENIES FEVER, CHILLS, SHORTNESS OF BREATH, CHEST PAIN, ABDOMINAL PAIN, NAUSEA, VOMITING, HEADACHE, OR OTHER COMPLAINTS. NO OTHER SYMPTOMS OR MODIFYING FACTORS AT THIS TIME. PATIENT IS ALERT, ORIENTED X 4, AND HAS STEADY GAIT. Chief Complaint: Sore Throat Time Seen by MD: 12:56 Primary Care Provider: DEMI Reviewed Notes: Nurses Notes, Medications, Allergies Allergies: Coded Allergies: NO KNOWN ALLERGIES (Unverified , 01/23/19) Home Meds Active Scripts Levofloxacin Hemihydrate (LEVAQUIN 500 MG) 500 Mg Tab, 1 TAB PO DAILY, #10 TAB Prov:LORI FOREMAN 04/05/25 Lidocaine HCl (Mouth-Throat) (Lidocaine HCl Viscous) 2 % Corinne, 10 ML MT TID, #100 ML Prov:LORI FOREMAN 04/05/25 Azithromycin (Azithromycin) 500 Mg Tab, 1 TAB PO DAILY, #5 TAB Prov:LORI FOREMAN 04/05/25 Levetiracetam (Keppra) 500 Mg Tab, 1 TAB PO BID for 30 Days, #60 TAB 3 Refills Prov:PHILLIP MEEKS NP 03/12/25 Hydrochlorothiazide (Hydrochlorothiazide) 12.5 Mg Cap, 1 CAP PO DAILY for 30 Days, #30 CAP 5 Refills Prov:MONIKA DERAS RESIDENT 08/25/24 Cefpodoxime Proxetil (Cefpodoxime Proxetil) 200 Mg Tab, 1 TAB PO BID for 5 Days, #10 TAB Prov:MONIKA DERAS RESIDENT 08/25/24 Amlodipine Besylate (Amlodipine Besylate) 10 Mg Tab, 1 TAB PO DAILY for 30 Days, #30 TAB 5 Refills Prov:MONIKA DERAS RESIDENT 08/25/24 Lisinopril (Lisinopril) 20 Mg Tab, 1 TAB PO DAILY for 30 Days, #30 TAB 5 Refills Prov:MONIKA DERAS RESIDENT 08/25/24 Cyanocobalamin (B-12) 1,000 Mcg Cap, 1000 MCG PO QAM for 30 Days, #30 CAP Prov:SKYLER MATHEWS MD 02/10/24 Atorvastatin Calcium (Lipitor) 40 Mg Tab, 1 TAB PO QPM, #30 TAB 1 Refill Prov:SKYLER MATHEWS MD 02/10/24 Aspirin (Aspirin Low Dose) 81 Mg Tab, 81 MG PO DAILY for 30 Days, #30 TAB Prov:SKYLER MATHEWS MD 02/10/24 Reported Medications Nifedipine (Nifedipine Er) 60 Mg Tab, 1 TAB PO 02/22/25 Pantoprazole Sodium Sesquihydr (Pantoprazole Sodium) 40 Mg Tab, 1 TAB PO DAILY 02/22/25 Fenofibrate (Fenofibrate) 160 Mg Tab, 1 TAB PO DAILY 02/22/25 Metformin Hydrochloride (Metformin Hcl) 500 Mg Tab, 1 TAB PO BID 08/21/24 Information Source: Patient Mode of Arrival: Ambulatory Severity: Moderate Timing: Months Duration: Intermittent Prehospital treatment: None Medication Refill: For: Other (SORE THROAT AND BILATERAL LEG SWELLING) Past Medical History PAST MEDICAL HISTORY: Anxiety, COPD, CVA, DM, High Lipids, HTN, Seizures, TIA Past Medical History (Other): CELLULITIS OF LEGS Surgical History: Denies all surgeries Family History Family History: Reviewed,noncontributory to illness, No family hx of Cancer, No family hx of Heart radha, Family hx of DM Social History Smoker: Quit Greater Than 1 Year Alcohol: Occasionally Drugs: Marijuana Lives In: Home Constitutional: denies: chills, diaphoresis, fatigue, fever, malaise, sweats, weakness, others EENTM: reports: throat pain, throat swelling; denies: blurred vision, double vision, ear bleeding, ear discharge, ear drainage, ear pain, ear ringing, eye pain, eye redness, hearing loss, mouth pain, mouth swelling, nasal discharge, nose bleeding, nose congestion, nose pain, photophobia, tearing, voice changes, others Respiratory: denies: cough, hemoptysis, orthopnea, SOB at rest, shortness of breath, SOB with excertion, stridor, wheezing, others Cardiovascular: denies: chest pain, dizzy spells, diaphoresis, Dyspnea on exertion, edema, irregular heart beat, left arm pain, lightheadedness, palpitations, PND, syncope, others Gastrointestinal: denies: abdomen distended, abdominal pain, blood streaked bowels, constipated, diarrhea, dysphagia, difficulty swallowing, hematemesis, melena, nausea, poor appetite, poor fluid intake, rectal bleeding, rectal pain, vomiting, others Genitourinary: denies: burning, dysuria, flank pain, frequency, hematuria, incontinence, penile discharge, penile sore, pain, testicle pain, testicle swelling, urgency, others Neurological: denies: dizziness, fainting, headache, left sided numbness, left sided weakness, numbness, paresthesia, pre-existing deficit, right sided numbness, right sided weakness, seizure, speech problems, tingling, tremors, weakness, others Musculoskeletal: reports: others (BILATERAL LEG SWELLING); denies: back pain, gout, joint pain, joint swelling, muscle pain, muscle stiffness, neck pain Integumetry: reports: rash, others (BILATERAL LEG REDNESS); denies: bruises, change in color, change in hair/nails, dryness, laceration, lesions, lumps, wounds Allergic/Immunocompromised: denies: Difficulty Healing, Frequent Infections, Hives, Itching, others Hematologic/Lymphatic: denies: anemia, blood clots, easy bleeding, easy bruising, swollen glands, others Endocrine: denies: excessive hunger, excessive sweating, excessive thirst, excessive urination, flushing, intolerance to cold, intolerance to heat, unexplained weight gain, unexplained weight loss, others Psychiatric: denies: anxiety, bipolar disorder, depression, hopeless, panic disorder, schizophrenia, sleepless, suicidal, others All Other Systems: Reviewed and Negative Physical Exam General Appearance: No Apparent Distress, Obese HEENT: PERRL/EOMI, Pharyngeal Erythema (ERYTHEMA AND SWELLING ON UVULA AND MILD ON TONSILIS, NO EXUDATES. ), TMs Normal Neck: Full Range of Motion, Non-Tender, Normal, Normal Inspection Respiratory: Chest Non-Tender, Lungs Clear, No Accessory Muscle Use, No Respiratory Distress, Normal Breath Sounds Cardiovascular: No Edema, No JVD, No Murmur, No Gallop, Normal Peripheral Pulse s, Regular Rate/Rhythm Breast Exam: Deferred Gastrointestinal: No Organomegaly, Non Tender, No Pulsatile Mass, Normal Bowel Sounds, Soft Genitalia: Deferred Pelvic: Deferred Rectal: Deferred Extremities: No calf tenderness, Normal capillary refill, Normal range of motion, Pedal edema (2+BILATERAL ANKLES. ), Tender (WITH MILD SWELLING AND ERYTHEMA ON BILATERAL LOWER LEGS, NO OPEN WOUND SEEN. ) Musculoskeletal : Apperance: Normal Neurologic: Alert, manager access II-XII nml as Tested, No Motor Deficits, Normal Affect, Normal Mood, No Sensory Deficits Cerebellar Function: Normal Reflexes: Normal Skin: Dry, Warm, Other (LOCALIZED ERYTHEMA AND SWELLING ON BILATERAL LOWER LEGS, +ACUTE ON CHRONIC CELLULITIS OF LOWER LEGS, NO OP;EN WOUND SEEN. ) Peripheral Pulses: 2+ carotid (R), 2+ carotid (L), 2+ dorsalis pedis (R), 2+ dorsalis pedis (L) Lymphatic: No Adenopathy Was a procedure done? Was a procedure done?: No Differential Dx Considerations may include: CELLULITIS, VENOUS STASIS DERMATITIS, DEPENDENT EDEMA, TONSILLITIS, ESOPHAGEAL MASS, PHARYNGITIS, VIRAL SYNDROME, OTITIS MEDIA X-Ray, Labs, Meds, VS Vital Signs Date Time Temp Pulse Resp B/P (MAP) Pulse Ox O2 Delivery O2 Flow Rate FiO2 04/05/25 12:49 99.2 67 18 174/87 97 99.2 Lab Test 04/05/25 13:52 Range/Units White Blood Count 4.1 L 4.4-10.8 10^3/uL Red Blood Count 4.28 L 4.5-5.90 10^6/uL Hemoglobin 13.6 13.5-17.5 g/dL Hematocrit 40.0 L 41.0-53.0 % Mean Corpuscular Volume 93.3 80.0-100.0 fL Mean Corpuscular Hemoglobin 31.7 28.0-32.0 pg Mean Corpuscular Hemoglobin Concent 34.0 32.0-36.0 g/dL Red Cell Distribution Width 14.3 11.8-14.3 % Platelet Count 194 140-450 10^3/uL Mean Platelet Volume 6.7 L 6.9-10.8 fL Neutrophils (%) (Auto) 37.0-80.0 % Lymphocytes (%) (Auto) 10.0-50.0 % Monocytes (%) (Auto) 0.0-12.0 % Basophils (%) (Auto) 0.0-2.0 % Neutrophils # (Auto) 1.6-8.6 10 ^3/uL Lymphocytes # (Auto) 0.4-5.4 10 ^3/uL Monocytes # (Auto) 0-1.3 10 ^3/uL Differential Total Cells Counted 100.0 100 Neutrophils % (Manual) 50 37.0-80.0 Band Neutrophils % (Manual) 2 Lymphocytes % (Manual) 31 10.0-50.0 Monocytes % (Manual) 12 0-12 Eosinophils % (Manual) 5 0-7 Basophils % (Manual) 0 0.0-2.0 Metamyelocytes % (manual) 0 Myelocytes % (Manual) 0 Promyelocytes % (Manual) 0 Blast Cells % (Manual) 0 Reactive Lymphocytes 0 Platelet Estimate Adequate Sodium Level 144 136-145 mmol/L Potassium Level 4.1 3.5-5.1 mmol/L Chloride Level 107 98-107 mmol/L Carbon Dioxide Level 28 20-31 mmol/L Anion Gap 9 5-15 Blood Urea Nitrogen 15 9-23 mg/dL Creatinine 0.85 0.700-1.30 mg/dL Glomerular Filtration Rate Calc 96 >90 mL/min BUN/Creatinine Ratio 17.6 10.0-20.0 Serum Glucose 120 H 74-106 mg/dL Lactic Acid Level 1.4 0.4-2.0 mmol/L Calcium Level 9.6 8.7-10.4 mg/dL B-Type Natriuretic Peptide 62.42 0-100 pg/mL X-Ray, Labs, Meds, VS Comment EXTERNAL MEDICAL RECORDS REVIEWED: [NONE] INDEPENDENT HISTORIANS: [NONE] SOCIAL DETERMINANTS OF HEALTH: [NONE] LABS ORDERED: CBC, BMP, BNP, LACTIC ACID W/REFLEX, BLOOD CULTURE REVIEWED AND INTERPRETED RESULTS: NORMAL IMAGING ORDERED: CT S.T. NECK: [NO ACUTE FINDINGS, NO MASS WAS SEEN. CT SCAN REPORT COULD NOT BE PROVIDED IN THIS CHART AT THIS TIME DUE TO RADIOLOGY REPORTS NOT CROSSING OVER INTO [facility].] TREATMENTS ORDERED: NONE PROCEDURES PERFORMED: NONE CRITICAL CARE TIME: NONE I HAVE DISCUSSED THE PATIENT WITH THE ATTENDING PHYSICIAN DR. AGUIRRE AND HE AGREES WITH THE PATIENT'S PLAN OF CARE. BASED ON HISTORY OF PRESENT ILLNESS, AND PHYSICAL EXAM, PATIENT WILL BE DISCHARGED HOME. DISCUSSED PLAN FOR DISCHARGE HOME WITH RX [LEVAQUIN 500 MG, AZITHROMYCIN, AND 2% VISCOUS LIDOCAINE]. MEDICATION WARNINGS GIVEN. SHARED DECISION MAKING: PATIENT INSTRUCTED TO FOLLOW UP WITH PRIMARY CARE PROVIDER IN 1-2 DAYS FOR RE-EVALUATION OF SYMPTOMS. PATIENT VERBALIZES UNDERSTANDING TO RETURN TO ED FOR NEW OR WORSENING SYMPTOMS OR IF FOLLOW UP WITH PCP CANNOT BE OBTAINED. PATIENT FEELS COMFORTABLE GOING HOME AT THIS TIME. ALL QUESTIONS ADDRESSED AT TIME OF DISCHARGE. Images Reviewed?: Images reviewed and evaluated by me Time of 1ST Reevaluation: 16:30 Reevaluation 1ST: Improved Patient Education/Counseling: Diagnosis, Treatment, Need For Follow Up Family Education/Counseling: Diagnosis, Treatment, Need For Follow Up Medical Screening: No EMC Exist At This Time SEPSIS Sepsis Screen Date sepsis recognized/suspect: Apr 05, 2025 Time Sepsis recognized/suspect: 1254 Recent Procedure: No On Antibiotic Therapy: No Respiratory Rate >20: No Heart Rate >90: No Temp<36 C (96.8 F) or >38.3 C: No SBP <90 or MAP <65 mmHG: No New Acute Mental Status Change: No Is the patient on CPAP, BIPAP,: No Physician Orders Blood Culture (04/05/25 13:34) Neck Without Contrast (04/05/25 13:34) Vital Signs Date Time Temp Pulse Resp B/P (MAP) Pulse Ox O2 Delivery O2 Flow Rate FiO2 04/05/25 12:49 99.2 67 18 174/87 97 99.2 Laboratory Tests Test 04/05/25 13:52 Lactic Acid Level 1.4 mmol/L (0.4-2.0) White Blood Count 4.1 10^3/uL (4.4-10.8) L Departure 1 Departure Time of Disposition: 16:30 Impression: Primary Impression: Acute tonsillitis Qualified Codes: J03.90 - Acute tonsillitis, unspecified Additional Impression: Chronic cellulitis Disposition: 01 HOME / SELF CARE / HOMELESS Condition: Stable Additional Instructions: FOLLOW-UP WITH PCP IN 1 TO 2 DAYS. TAKE MEDICATIONS PRESCRIBED. RETURN TO ED FOR ANY NEW OR WORSENING SYMPTOMS. e-Prescriptions Levofloxacin Hemihydrate (LEVAQUIN 500 MG) 500 Mg Tab 1 TAB PO DAILY, #10 TAB Prov: LORI FOREMAN 04/05/25 Lidocaine HCl (Mouth-Throat) (Lidocaine HCl Viscous) 2 % Corinne 10 ML MT TID, #100 ML Prov: LORI FOREMAN 04/05/25 Azithromycin (Azithromycin) 500 Mg Tab 1 TAB PO DAILY, #5 TAB Prov: LORI FOREMAN 04/05/25 Discharged With: Self Critical Care Note Critical Care Time?: No Stability Stability form required: No I personally scribed for LORI FOREMAN ([email or web address]) on 04/05/25 at 13:56. Electronically submitted by Juan Alberto Cornelius (Leeo). I personally scribed for LORI FOREMAN ([email or web address]) on 04/05/25 at 13:58. Electronically submitted by Juan Alberto Cornelius (Leeo). I personally scribed for LORI FOREMAN ([email or web address]) on 04/05/25 at 16:27. Electronically submitted by Juan Alberto Cornelius (Leeo). LORI FOREMAN Apr 05, 2025 13:56
[2025-04-05 14:13] LABS: Hematocrit 40.0 % (41.0-53.0); Hemoglobin 13.6 g/dL (13.5-17.5); Mean Corpuscular Hemoglobin 31.7 pg (28.0-32.0); Mean Corpuscular Volume 93.3 fL (80.0-100.0)
[2025-04-05 14:25] LABS: Chloride 107 mmol/L (98-107); Potassium 4.1 mmol/L (3.5-5.1); Sodium 144 mmol/L (136-145)
[2025-04-05 14:26] LABS: Anion Gap 9 (5-15); Calcium 9.6 mg/dL (8.7-10.4); Carbon Dioxide 28 mmol/L (20-31)
[2025-04-05 14:31] LABS: BUN/Creatinine Ratio 17.6 (10.0-20.0); Blood Urea Nitrogen 15 mg/dL (9-23)
[2025-04-05 14:44] LABS: Total Cells Counted 100.0 (100)
[2025-04-05 14:50] LABS: Glucose 120 mg/dL (74-106)
[2025-04-05] MEDS ORDERED: AZIT500T66 PO (16:26)
[2025-04-05] MEDS ORDERED: LIDO2SOL26 MT (16:26)
[2025-04-05] MEDS ORDERED: LEVO500T91 PO (16:26)
--- NOTE | 2025-04-05 17:52 | DVH ---
Procedure: NECK WITHOUT CONTRAST Reason for study/Clinical History: THROAT PAIN 6 MONTH, R/O MASS Comparison Study: CT C-SPINE on DOS: 09/15/23 Exam Date: 04/05/2025 02:23 PM Radiation Dose Information: CT Dose: CTDI volume is 24 mGy. Dose-length product is 707 mGy*cm [Statement][Radimetrics Dose Report] Technique: CT of the neck was performed without intravenous contrast with multiplanar images reviewed. Findings: Aerodigestive Tract: Limited evaluation on noncontrast study. No masslike density in the aerodigestive tract. Lymph Nodes: Prominent bilateral cervical lymph nodes, nonspecific, likely reactive. Salivary Glands: Normal. Thyroid Gland: Unremarkable. Visualized Brain and Orbits: No acute process. Paranasal sinus and mastoid air cells: Scattered paranasal sinus mucosal thickening. Mastoid air cells are clear. Osseous Structures and Soft Tissues: No aggressive osseous lesions. Multiple skin nodules overlying the left face. Vascular: Patency not evaluated on this noncontrast study. Lung Apices: Clear. IMPRESSION: No definite neck mass or suspicious lymphadenopathy. Multiple skin nodules overlying the left face. Recommend direct inspection.
== END 2025-04-05 16:30 | disposition home or self-care (01) ==
LOC: ER 12:47
DX: J03.90 Acute tonsillitis, unspecified (principal); L03.116 Cellulitis of left lower limb; F12.90 Cannabis use, unspecified, uncomplicated; F10.90 Alcohol use, unspecified, uncomplicated; J44.9 Chronic obstructive pulmonary disease, unspecified; I10 Essential (primary) hypertension; E11.9 Type 2 diabetes mellitus without complications; E78.5 Hyperlipidemia, unspecified; F41.9 Anxiety disorder, unspecified; Z79.899 Other long term (current) drug therapy; Z86.73 Personal history of transient ischemic attack (TIA), and cerebral infarction without residual deficits; Z79.84 Long term (current) use of oral hypoglycemic drugs; Z79.82 Long term (current) use of aspirin; Z87.891 Personal history of nicotine dependence
CPT/HCPCS: 36415; 70490; 80048; 83605; 83880; 85007; 85027; 87040